=== PATIENT | female | born 1960 | race Caucasian/White ===

== ENCOUNTER → 2016-11-09 | Outpatient (CLI) | payer OTHER ==
[~2016-11-09] MED LIST: ALPR1TAB3 PO; AMPI500C9 PO; BROM0.07; BYS10 PO; CHOL100010 PO; DIFL0.0519; ERYOPO OPB; ERYT1OIN55 OPB; FLUO20CA36 PO; FLUO40CA8 PO; GATI1SOL2; PRLSR20 PO; RST/30 PO; TPM/50 PO; [UNRECOGNIZED DRUG - CODE] PO
--- NOTE | 2016-11-09 14:09 | MAMMOGRAPHY REPORT ---
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 TECHNIQUE: Breast tomosynthesis in addition to standard 2D mammography was performed. Current study was also evaluated with a Computer Aided Detection (CAD) system. Bilateral CC and MLO 2-D and jahaira synthesis images were obtained. COMPARISON: Comparison is made to exams dated: 07/07/2015 mammogram, 11/10/2011 mammogram, 06/19/2014 m ammogram - [facility], and 01/08/2010 mammogram. BREAST COMPOSITION: The tissue of both breasts is almost entirely fatty. FINDINGS: [place] markers mildred the site of the palpable lumps in bilateral lower inner quadrants. No suspicious masses or other suspicious mammographic abnormalities are evident in these regions. T he remainder of both breasts are stable compared to prior exams, without suspicious masses, calcific ations, or areas of architectural distortion noted. Small benign appearing mass in the right upper outer quadrant posteriorly is stable. A linear scar marker denotes a scar on the right breast. Targeted ultrasound was performed of the areas of the palpable lump pointed out by the patient, in t he right breast at 3:00, approximately 7 cm from the nipple, as well as left breast at 8:00, approxi mately 7 cm from the nipple. Sonographically normal tissue is seen in these regions, without eviden ce of a mass or other suspicious sonographic abnormality. IMPRESSION: ACR BI-RADS CATEGORY 2: BENIGN, TARGETED ULTRASOUND ACR BI-RADS CATEGORY 2: BENIGN No suspicious mammographic or sonographic abnormality at the site of bilateral breast lumps. There is no mammographic or targeted sonographic evidence of malignancy. Recommend clinical follow-up for bilateral breast lumps, and recommend routine bilateral screening mammograms in one year. The ryan ent has been verbally notified of the results. Approximately 10% of breast cancers are not detected with mammography. A negative mammographic repor t should not delay biopsy if a clinically suggestive mass is present. Sherice Berry M.D. ah/:11/09/2016 10:31:22 Funeral Planning Counselor: Peyton BILLINGSLEY(R)(M), [facility] letter sent: Normal 1/2 BI-RADS Code: ACR BI-RADS Category 2: Benign Ultrasound BI-RADS: ACR BI-RADS Category 2: Benign
== END | disposition home or self-care (01) ==
LOC: C.MAMM 09:31
PROVIDERS: ATTEND Internal Medicine
DX: N63 Unspecified lump in breast (principal)

== ENCOUNTER → 2017-06-27 | Day surgery (SDC) | payer OTHER ==
[2017-05-30 11:00] VITALS: Ht 154.9 cm; Wt 79.5 kg
[~2017-06-27] VITALS: Ht 154.9 cm; Wt 79.5 kg
[~2017-06-27] MED LIST changes: +500ML BSS 0.3ML EPI 1:1000PF IRRIG ONE; +ACETAMINOPHEN 325 MG TAB PO PRN; -AMPI500C9 PO; +AMVISC PLUS 0.8ML SYRINGE INT OCU ONE; +ATROPINE SULFATE 0.1 MG/ML 5ML SYR IV PRN; +BSS FLUSH ONE; -BYS10 PO; +EpHEDrine SULFATE INJ 50 MG/ML AMP IV PRN; +EpINEphrine INJ 1MG/ML AMP 1 MG/ML AMP ONE; +LACTATED RINGER'S 1000ML 500 ML IV SCH; +LIDOCAINE 3.5% OPH GEL PER APPLICATION CHARGE ONE; +LIDOCAINE HCL 1% MPF 2 ML VIAL ONE; +MIDAZOLAM HCL 1 MG/ML 2ML VIAL ONE; +OCUCOAT 1 ML SOLN IO ONE; +POVIDONE-IODINE OP SOLN 30 ML BTL ONE; +PROPARACAINE 0.5% OP SOLN PER DROP CHARGE OPL SCH; +TOBRAMYCIN/DEXAMETHASONE OPH OINT PER APPLN CHARGE ONE
[2017-06-27] MEDS: PHENYLEPHRINE HCL 2.5% OP SOLN PER DROP CHARGE OPL SCH ×2 (08:27→08:33)
[2017-06-27] MEDS: TROPICAMIDE 1% OP SOLN PER DROP CHARGE OPL SCH ×2 (08:28→08:34)
[2017-06-27] MEDS: CYCLOPENTOLATE HCL 1% OP SOLN PER DROP CHARGE OPL SCH ×2 (08:29→08:35)
[2017-06-27] MEDS: KETOROLAC 0.5% OP SOLN PER DROP CHARGE OPL SCH ×2 (08:30→08:36)
[2017-06-27] MEDS: GATIFLOXACIN OP SOLN PER DROP CHARGE OPL SCH ×2 (08:32→08:41)
--- NOTE | 2017-06-27 08:43 | History & Physical Bridge - SC ---
H&P Re-Evaluation Bridge Note: I have examined the patient, reviewed the History & Physical and in the interval since the performance of the History & Physical I have noted the following changes of clinical significance: Diagnosis: Left Cataract Procedure: Left Cataract Removal with Lens Implant No changes noted
--- NOTE | 2017-06-27 09:31 | Discharge Instructions-SurgCtr ---
Discharge Instructions Date of Service Jun 27, 2017. Visit Reason for Visit: Cataract Left Eye Discharge Discharge Diagnosis / Problem: cataract Discharge Goals Goal(s): Improve function Activity Recommendations Activity Limitations: per Instructions/Follow-up section Anesthesia . Post Anesthesia Instructions: If you have had General Anesthesia or IV Sedation: * Do not drive today. * Resume driving when surgeon permits. * Do not make important decisions or sign legal documents today. * Call surgeon for: 1. Temperature elevations greater than 101 degrees F. 2. Uncontrollable pain. 3. Excessive bleeding. 4. Persistent nausea and vomiting. 5. Medication intolerance (nausea, vomiting or rash). * For nausea and vomiting use only clear liquids such as: tea, soda, bouillon until nausea subsides, then gradually increase diet as tolerated. * If you have any concerns or questions, call your surgeon's office. If physician is unavailable and it is an emergency, call 911 or go to the nearest emergency room. . Instructions / Follow-Up Instructions / Follow-Up ACTIVITY RECOMMENDATIONS: * No strenuous lifting, jogging or running for 4 days * No swimming or yard work for 1 week. * Limited bending is permitted, such as putting on shoes. RETURN TO SCHOOL/WORK: No work until seen by physician in office. MEDICATIONS: Resume previous medications unless instructed otherwise by your surgeon. This includes eye drops for glaucoma. Zymaxid/Gatifloxacin (fuller cap) - one drop every 2 hours until bedtime Nevanac/Ilevro/Prolensa/Ketorolac (meade cap) - one drop every 4 hours until bedtime Prednisolone/Durezol (white/pink cap, SHAKE WELL) - one drop every 2 hours until bedtime Starting tomorrow - all 3 drops every 4 hours until seen in the office Optive drops - as needed for discomfort SPECIAL CARE INSTRUCTIONS: * Wear eyeshield when sleeping, for four nights. * You may wear your own glasses or sunglasses while awake. * You may read or watch TV * You may shower and wash your face, but be gentle around the eye and pat dry. * Blurry vision and mild irritation are normal. * Call office if pain is more severe or vision becomes dark at . FOLLOW UP VISIT: Follow-up with Dr Dela Cruz tomorrow. Diet Recommendations Home Diet: resume previous diet Procedures Procedures Performed: Left Cataract Phacoemulsification With Intraocular Lens Implant Pending Studies Studies pending at discharge: no Medical Emergencies . Who to Call and When: Medical Emergencies: If at any time you feel your situation is an emergency, please call 911 immediately. . Non-Emergent Contact Non-Emergency issues call your: Manuscripts [employer]ator . . "Provider Documentation" section prepared by Adal Dela Cruz. .
--- NOTE | 2017-06-27 09:31 | [facility] Operative Report ---
Operative Report Date of Service Jun 27, 2017. Operative Report 1. PREOPERATIVE DIAGNOSIS: Cataract of the left eye. 2. POSTOPERATIVE DIAGNOSIS: Same. 3. PROCEDURE: Phacoemulsification with intraocular lens implantation of the left eye. SURGEON: Dr. Adal Dela Cruz. ANESTHESIA: Topical Lidocaine gel, 1% Non- Preserved intracameral Lidocaine, and monitored intravenous sedation. INDICATIONS FOR THE PROCEDURE: The patient is a 57 - year-old female with a history of cataract of the left eye causing significant visual impairment. The details of the proposed procedure were explained to the patient who asked appropriate questions and following discussion of all risks, benefits and alternatives agreed to have the procedure done. 4. OPERATION AND FINDINGS: DESCRIPTION OF PROCEDURE: After informed consent was obtained, the patient was brought to the Operating Room at the [facility]. The patient was placed in a supine position and then the left eye was prepped and draped in the usual sterile fashion for intraocular surgery. A drop of topical Lidocaine gel was placed in the operative eye. A wire lid speculum was then placed in the fornices. A corneal paracentesis was then created temporally. The Non-Preserved Lidocaine was then instilled into the anterior chamber. The anterior chamber was then pressurized with viscoelastic. A 2.0 mm clear corneal incision was then created temporally. A cystotome was inserted into the anterior chamber and used to create a tear in the anterior lens capsule. This capsular tear was then used to create a small flap and the flap was dragged in a counterclockwise direction in order to create a continuous curvilinear capsulorrhexis. Hydrodissection was accomplished with balanced salt solution. Phacoemulsification of the lens nucleus was then performed in a standard [id number]-sye-[id number] technique. The phaco time was 19 seconds with an average power of 8 %. The remaining cortical material was removed using irrigation aspiration. The capsular bag was then filled with viscoelastic. A Bausch [employer] Lomb MI60L +25.5 diopters lens was then loaded into the injector and injected into the capsular bag. The remaining viscoelastic was removed with the irrigation aspiration handpiece. The wound was hydrated and then checked and found to be watertight. The intraocular pressure was checked and found to be adequate. The wire lid speculum was removed and the patient's face was cleaned and dried. TobraDex ointment was placed in the inferior fornix. The patient was discharged to the Recovery Room having tolerated the procedure well. There were no complications. The patient will be seen tomorrow in the office for follow-up. I attest to the content of the Intraoperative Record and any orders documented therein. Any exceptions are noted below.
[2017-06-27 09:32] VITALS: TEMP 36.6
--- NOTE | 2017-06-27 09:54 | Anesthesia Progress Nt - [facility] ---
Anesthesia Post Op Note Date & Time Jun 27, 2017 at 09:53 Vital Signs Pain Intensity: 0 Vital Signs Past 12 Hours Date Time Temp Pulse Resp B/P (MAP) Pulse Ox O2 Delivery O2 Flow Rate FiO2 06/27/17 09:32 36.6 58 20 150/76 (100) 97 Room Air 06/27/17 08:17 36.7 60 18 164/87 (112) 96 Room Air Notes Mental Status: alert / awake / arousable, participated in evaluation Pt Amnestic to Procedure: Yes Nausea / Vomiting: adequately controlled Pain: adequately controlled Airway Patency, RR, SpO2: stable & adequate BP & HR: stable & adequate Hydration State: stable & adequate Anesthetic Complications: no major complications apparent
[2017-06-27 10:06] VITALS: BP 158/82; PULSE 60; O2SAT 97
== END | disposition home or self-care (01) ==
LOC: X.SURG 07:56
PROVIDERS: ATTEND Ophthalmology
DX: H26.9 Unspecified cataract (principal); I10 Essential (primary) hypertension; H91.90 Unspecified hearing loss, unspecified ear; Z79.899 Other long term (current) drug therapy

== ENCOUNTER → 2017-07-18 | Day surgery (SDC) | payer OTHER ==
[2017-07-10 09:42] VITALS: Ht 154.9 cm; Wt 79.5 kg
[~2017-07-18] VITALS: Ht 154.9 cm; Wt 79.5 kg
[~2017-07-18] MED LIST changes: -BROM0.07; -DIFL0.0519; -ERYT1OIN55 OPB; -GATI1SOL2; +PHENYLEPHRINE HCL 10% OP SOLN PER DROP CHARGE OPR SCH; -PROPARACAINE 0.5% OP SOLN PER DROP CHARGE OPL SCH; +PROPARACAINE 0.5% OP SOLN PER DROP CHARGE OPR SCH; +SODIUM CHLORIDE 0.9% 500ML IV SCH
[2017-07-18] MEDS: PHENYLEPHRINE HCL 2.5% OP SOLN PER DROP CHARGE OPR SCH ×2 (06:32→06:38)
[2017-07-18] MEDS: TROPICAMIDE 1% OP SOLN PER DROP CHARGE OPR SCH ×2 (06:33→06:39)
[2017-07-18] MEDS: CYCLOPENTOLATE HCL 1% OP SOLN PER DROP CHARGE OPR SCH ×2 (06:34→06:40)
[2017-07-18] MEDS: KETOROLAC 0.5% OP SOLN PER DROP CHARGE OPR SCH ×2 (06:35→06:41)
[2017-07-18] MEDS: GATIFLOXACIN OP SOLN PER DROP CHARGE OPR SCH ×2 (06:36→06:44)
--- NOTE | 2017-07-18 06:53 | History & Physical Bridge - SC ---
H&P Re-Evaluation Bridge Note: I have examined the patient, reviewed the History & Physical and in the interval since the performance of the History & Physical I have noted the following changes of clinical significance: No changes noted
--- NOTE | 2017-07-18 07:20 | Discharge Instructions-SurgCtr ---
Discharge Instructions Date of Service Jul 18, 2017. Visit Reason for Visit: Cataract Right Eye Discharge Discharge Diagnosis / Problem: cataract Discharge Goals Goal(s): Improve function Activity Recommendations Activity Limitations: per Instructions/Follow-up section Anesthesia . Post Anesthesia Instructions: If you have had General Anesthesia or IV Sedation: * Do not drive today. * Resume driving when surgeon permits. * Do not make important decisions or sign legal documents today. * Call surgeon for: 1. Temperature elevations greater than 101 degrees F. 2. Uncontrollable pain. 3. Excessive bleeding. 4. Persistent nausea and vomiting. 5. Medication intolerance (nausea, vomiting or rash). * For nausea and vomiting use only clear liquids such as: tea, soda, bouillon until nausea subsides, then gradually increase diet as tolerated. * If you have any concerns or questions, call your surgeon's office. If physician is unavailable and it is an emergency, call 911 or go to the nearest emergency room. . Diet Recommendations Home Diet: resume previous diet Procedures Procedures Performed: Right Cataract Phacoemulsification With Intraocular Lens Implant Pending Studies Studies pending at discharge: no Medical Emergencies . Who to Call and When: Medical Emergencies: If at any time you feel your situation is an emergency, please call 911 immediately. . Non-Emergent Contact Non-Emergency issues call your: [facility] . . "Provider Documentation" section prepared by Adal Dela Cruz. .
--- NOTE | 2017-07-18 07:22 | [facility] Operative Report ---
Operative Report Date of Service Jul 18, 2017. Operative Report 1. PREOPERATIVE DIAGNOSIS: Cataract of the right eye. 2. POSTOPERATIVE DIAGNOSIS: Same. 3. PROCEDURE: Phacoemulsification with intraocular lens implantation of the right eye. SURGEON: Dr. Adal Dela Cruz. ANESTHESIA: Topical Lidocaine gel, 1% Non- Preserved intracameral Lidocaine, and monitored intravenous sedation. INDICATIONS FOR THE PROCEDURE: The patient is a 57 - year-old female with a history of cataract of the right eye causing significant visual impairment. The details of the proposed procedure were explained to the patient who asked appropriate questions and following discussion of all risks, benefits and alternatives agreed to have the procedure done. The patient had a broad area of posterior iris synechia noted preoperatively. Plans were made preoperatively to lyse these synechia. 4. OPERATION AND FINDINGS: DESCRIPTION OF PROCEDURE: After informed consent was obtained, the patient was brought to the Operating Room at the [facility]. The patient was placed in a supine position and then the right eye was prepped and draped in the usual sterile fashion for intraocular surgery. A drop of topical Lidocaine gel was placed in the operative eye. A wire lid speculum was then placed in the fornices. A corneal paracentesis was then created temporally. The Non-Preserved Lidocaine was then instilled into the anterior chamber. The anterior chamber was then pressurized with viscoelastic. The viscoelastic was used to bluntly dissect 3 clock hours of iris synechia in order to adequately visualize the anterior lens capsule. A 2.0 mm clear corneal incision was then created temporally. A cystotome was inserted into the anterior chamber and used to create a tear in the anterior lens capsule. This capsular tear was then used to create a small flap and the flap was dragged in a counterclockwise direction in order to create a continuous curvilinear capsulorrhexis. Hydrodissection was accomplished with balanced salt solution. Phacoemulsification of the lens nucleus was then performed in a standard divide- and-conquer technique. The phaco time was 25 seconds with an average power of 16 %. The remaining cortical material was removed using irrigation aspiration. The capsular bag was then filled with viscoelastic. A Bausch & Lomb MI60L + 21.5 diopters lens was then loaded into the injector and injected into the capsular bag. The remaining viscoelastic was removed with the irrigation aspiration handpiece. The wound was hydrated and then checked and found to be watertight. The intraocular pressure was checked and found to be adequate. The wire lid speculum was removed and the patient's face was cleaned and dried. TobraDex ointment was placed in the inferior fornix. The patient was discharged to the Recovery Room having tolerated the procedure well. There were no complications. The patient will be seen tomorrow in the office for follow-up. I attest to the content of the Intraoperative Record and any orders documented therein. Any exceptions are noted below.
[2017-07-18 07:23] VITALS: TEMP 36.9
--- NOTE | 2017-07-18 07:31 | Anesthesia Progress Nt - [facility] ---
Anesthesia Post Op Note Date & Time Jul 18, 2017 at 07:31 Vital Signs Pain Intensity: 0 Vital Signs Past 12 Hours Date Time Temp Pulse Resp B/P (MAP) Pulse Ox O2 Delivery O2 Flow Rate FiO2 07/18/17 07:23 36.9 58 18 146/79 (101) 100 Room Air 07/18/17 06:23 36.6 61 16 136/81 (99) 95 Room Air Notes Mental Status: alert / awake / arousable, participated in evaluation Pt Amnestic to Procedure: Yes Nausea / Vomiting: adequately controlled Pain: adequately controlled Airway Patency, RR, SpO2: stable & adequate BP & HR: stable & adequate Hydration State: stable & adequate Anesthetic Complications: no major complications apparent
[2017-07-18 07:44] VITALS: BP 143/84; PULSE 55; O2SAT 98
== END | disposition home or self-care (01) ==
LOC: X.SURG 06:04
PROVIDERS: ATTEND Ophthalmology
DX: H25.9 Unspecified age-related cataract (principal); I10 Essential (primary) hypertension

== ENCOUNTER → 2017-12-26 | Outpatient (CLI) | payer OTHER ==
[~2017-12-26] MED LIST changes: -500ML BSS 0.3ML EPI 1:1000PF IRRIG ONE; -ACETAMINOPHEN 325 MG TAB PO PRN; -AMVISC PLUS 0.8ML SYRINGE INT OCU ONE; -ATROPINE SULFATE 0.1 MG/ML 5ML SYR IV PRN; -BSS FLUSH ONE; -EpHEDrine SULFATE INJ 50 MG/ML AMP IV PRN; -EpINEphrine INJ 1MG/ML AMP 1 MG/ML AMP ONE; -LACTATED RINGER'S 1000ML 500 ML IV SCH; -LIDOCAINE 3.5% OPH GEL PER APPLICATION CHARGE ONE; -LIDOCAINE HCL 1% MPF 2 ML VIAL ONE; -MIDAZOLAM HCL 1 MG/ML 2ML VIAL ONE; -OCUCOAT 1 ML SOLN IO ONE; -PHENYLEPHRINE HCL 10% OP SOLN PER DROP CHARGE OPR SCH; -POVIDONE-IODINE OP SOLN 30 ML BTL ONE; -PROPARACAINE 0.5% OP SOLN PER DROP CHARGE OPR SCH; -SODIUM CHLORIDE 0.9% 500ML IV SCH; -TOBRAMYCIN/DEXAMETHASONE OPH OINT PER APPLN CHARGE ONE
--- NOTE | 2017-12-26 10:36 | DIAGNOSTIC IMAGING REPORT ---
ULTRASOUND KIDNEYS AND BLADDER CLINICAL HISTORY: Nephrolithiasis.. COMPARISON STUDY: Abdominal CT dated 11/30/2015. TECHNIQUE: Real-time, grayscale, and color flow sonography of the kidneys and bladder is performed. Images are reviewed in the transverse and longitudinal planes. FINDINGS: Kidneys: The kidneys are atrophic. The right kidney measures 10.7 x 5.0 x 4.9 cm and the left kidney measures 10.7 x 5.3 x 5.6 cm. There is no hydronephrosis. A shadowing calculus is seen in the right lower pole and measures at least 8 mm. A 5 mm shadowing calculus is seen in the left upper pole. There is no sonographic evidence of contour deforming renal mass lesion. No perinephric fluid is identified. Bladder: The bladder is decompressed and not well evaluated. A left ureteral jet was identified. IMPRESSION: 1. The kidneys are atrophic and without hydronephrosis. 2. Bilateral nonobstructing renal calculi are identified. 3. The bladder was decompressed and could not be evaluated. Electronically signed by: Herve Hardin M.D. 12/26/2017 10:34 AM Dictated Date/Time: 12/26/2017 10:32 AM
== END | disposition home or self-care (01) ==
LOC: C.ULTR 09:59
PROVIDERS: ATTEND Physician Assistant Medical
DX: N20.0 Calculus of kidney (principal); N26.1 Atrophy of kidney (terminal)

== ENCOUNTER → 2017-12-26 | Outpatient (CLI) | payer OTHER | END | disposition home or self-care (01) | LOC: C.MAMM 10:37 | PROVIDERS: ATTEND Physician Assistant Medical | DX: M85.89 Other specified disorders of bone density and structure, multiple sites (principal) ==

== ENCOUNTER → 2018-06-04 | Outpatient (CLI) | payer OTHER ==
--- NOTE | 2018-06-04 12:05 | DIAGNOSTIC IMAGING REPORT ---
L KNEE 1 OR 2 VIEWS ROUTINE HISTORY: 58 years-old Female LEFT KNEE PAIN acute left-sided knee pain COMPARISON: None available TECHNIQUE: 2 views of the left knee FINDINGS: There is mild medial compartment joint space narrowing. Minimal marginal spurring about the patellofemoral joint. The bones appear mildly demineralized. No acute fracture, dislocation or osteochondral defect. No large joint effusion or opaque foreign body. IMPRESSION: Mild degenerative changes without acute fracture. The above report was generated using voice recognition software. It may contain grammatical, syntax or spelling errors. Electronically signed by: Joselito Flores M.D. 06/04/2018 12:04 PM Dictated Date/Time: 06/04/2018 12:03 PM
[2018-06-04 13:16] LABS: BASO % 0.5 %; BASO ABS # 0.06 K/uL (0-0.2); EOS % 3.1 %; EOS ABS # 0.36 K/uL (0-0.5); HEMATOCRIT 43.2 % (37-47); HEMOGLOBIN 14.2 g/dL (12.0-16.0); IG# 0.05 K/uL (0.00-0.02); LYMPH % 25.3 %; LYMPH ABS # 2.98 K/uL (1.2-3.4); MEAN CELL VOLUME 95.2 fL (80-100); MEAN CORPUSCULAR HEMOGLOBIN 31.3 pg (25-34); MEAN CORPUSCULAR HGB CONC 32.9 g/dl (32-36); MEAN PLATELET VOLUME 9.8 fL (7.4-10.4); MONO % 6.7 %; MONO ABS # 0.79 K/uL (0.11-0.59); NEUT ABS # 7.52 K/uL (1.4-6.5); PLATELET COUNT 470 K/uL (130-400); RED CELL DISTRIBUTION WIDTH CV 13.9 % (11.5-14.5); RED CELL DISTRIBUTION WIDTH SD 48.5 fL (36.4-46.3); WHITE BLOOD COUNT 11.76 K/uL (4.8-10.8)
[2018-06-04 14:03] LABS: ALBUMIN 3.4 gm/dl (3.4-5.0); ALKALINE PHOSPHATASE 120 U/L (45-117); ALT/SGPT 23 U/L (12-78); AST/SGOT 12 U/L (15-37); BLOOD UREA NITROGEN 11 mg/dl (7-18); CALCIUM 8.8 mg/dl (8.5-10.1); CARBON DIOXIDE 24 mmol/L (21-32); CHOLESTEROL 189 mg/dl (0-200); GLUCOSE 95 mg/dl (70-99); LDL CHOLESTEROL CALCULATED 119 mg/dl; POTASSIUM 3.6 mmol/L (3.5-5.1); SODIUM 141 mmol/L (136-145); TOTAL PROTEIN 7.8 gm/dl (6.4-8.2)
== END | disposition home or self-care (01) ==
LOC: C.RADBC 11:08
PROVIDERS: ATTEND Physician Assistant Medical
DX: M25.562 Pain in left knee (principal); D47.3 Essential (hemorrhagic) thrombocythemia; E55.9 Vitamin D deficiency, unspecified; E78.4 Other hyperlipidemia; R80.8 Other proteinuria; I10 Essential (primary) hypertension; D72.829 Elevated white blood cell count, unspecified

== ENCOUNTER 2022-05-22 11:59 | Inpatient (IN) ==
[2022-05-22] MEDS ORDERED: SODIUM CHLORIDE 0.9% 1000ML 1,000 ML IV SCH (12:45)
--- NOTE | 2022-05-22 13:03 | XRay Report ---
XR chest 1V portable HISTORY: 62 years-old Female AMS . Acutely altered mental status COMPARISON: Acute abdominal series radiographs 11/20/2018 TECHNIQUE: AP view of the chest FINDINGS: Cardiac silhouette is enlarged. Mild right hemidiaphragmatic elevation. No pneumothorax, pleural effu tahmina or overt pulmonary edema. There are linear right midlung and right basilar densities which are n ew from prior. The bones appear grossly intact. IMPRESSION: Linear right midlung and right basilar opacities may represent atelectasis versus pneumon itis. ACT 112: Negative or not required by law. The above report was generated using voice recognition software. It may contain grammatical, syntax o r spelling errors. Electronically signed by: Alhaji Flores M.D. 05/22/2022 1:01 PM
[2022-05-22 13:26] LABS: Basophils # (auto) 0.05 K/uL (0-0.2); Basophils % (auto) 0.3 %; Eosinophils # (auto) 0.26 K/uL (0-0.50); Eosinophils % (auto) 1.5 %; Hematocrit (blood only) 42.6 % (34.1-44.9); Hemoglobin 13.5 g/dl (12.0-16.0); Immature Granulocytes # (auto) 0.13 K/uL (0.00-0.02); Immature Granulocytes % (auto) 0.7 %; Lymphocytes # (auto) 2.74 K/uL (1.2-3.4); Lymphocytes % (auto) 15.7 %; Mean Corpuscular Hemoglobin 30.8 pg (25.0-34.0); Mean Corpuscular Hgb Conc 31.7 g/dL (32.0-36.0); Mean Corpuscular Volume 97.3 fL (80.0-100.0); Mean Platelet Volume 9.1 fL (9.4-12.3); Monocytes # (auto) 1.02 K/uL (0.24-0.82); Monocytes % (auto) 5.8 %; Neutrophils # (auto) 13.27 K/uL (1.4-6.5); Platelet Count 394 K/uL (130-400); RDW Coefficient of Variation 13.2 % (11.5-14.5); Red Blood Count 4.38 M/uL (3.93-5.22); White Blood Count 17.47 K/ul (4.8-10.8)
--- NOTE | 2022-05-22 13:43 | CT Scan Report ---
CT head/brain wo con CLINICAL HISTORY: 62 years-old Female with AMS. Acutely altered mental status TECHNIQUE: Multiple axial CT images of the head were obtained without contrast. A dose lowering tech nique was utilized adhering to the principles of ALARA. CT DOSE: 537.48 mGy.cm COMPARISON: Head CT 02/01/2016 FINDINGS: No acute intracranial hemorrhage, midline shift, intracranial mass, hydrocephalus, territorial ischem ia or abnormal extra-axial collection. Involutional changes with chronic microvascular ischemic disea se. The study is mildly motion degraded. The calvarium is intact. Prior bilateral lens repair. The paranasal sinuses, mastoid air cells, and m iddle ear cavities are clear. IMPRESSION: No acute intracranial abnormality. ACT 112: Negative or not required by law. The above report was generated using voice recognition software. It may contain grammatical, syntax o r spelling errors. Electronically signed by: Alhaji Flores M.D. 05/22/2022 1:42 PM
[2022-05-22 13:48] LABS: Acetaminophen < 3 ug/ml (10-30); Salicylate < 3.0 mg/dl (3.0-30)
[2022-05-22 13:49] LABS: Albumin Globulin Ratio 1.1 (0.9-2); Albumin Level 3.9 gm/dl (3.4-5.0); BUN Creatinine Ratio 15.6 (10-20); Calcium 9.6 mg/dl (8.5-10.1); Est GFR (African American) 51.2 ml/min; Est GFR (Non-African American) 44.1 ml/min; Globulin 3.7 gm/dl (2.5-4.0); Magnesium 1.8 mg/dl (1.7-2.4); Potassium 4.7 mmol/L (3.5-5.1); Total Protein 7.6 gm/dl (6.0-8.3)
[2022-05-22 13:54] LABS: Troponin I High Sensitivity 7.5 pg/ml (0-14)
--- NOTE | 2022-05-22 14:26 | History & Physical Report ---
Date of Service May 22, 2022 Assessment & Plan (1) Benzodiazepine (tranquilizer) overdose: Plan: - Suspected with known temazepam use, EMS reported Klonopin bottle recently filled that should've had 20 pills left, only 6 remained. This is not a medication she has been prescribed as far as I can tell from prior notes, PDMP, med rec done here. - Also recently given Caplyta to try (unknown who prescribed this), suspect patient has been taking these in excess. 8 empty pill packs found underneath patient by EMS. - Will place 1:1 sitter while patient becomes more alert and we can assess whether this was intentional vs accidental OD. - HOB 30 degres at all times. - Continue IVF. Patient is NPO. (2) Polypharmacy: Plan: - Patient's current prescriptions for depression/bipolar/insomnia includes Prozac 40 mg daily as needed, temazepam 30 mg at night. - She apparently has Klonopin at home, however unknown who is prescribing this. Also was given trials for Caplyta. - Need to reconcile meds and clarify what she is taking and how frequently. (3) Bipolar I disorder, single manic episode: Plan: - Unclear what her current medication therapy is. I do see that she was prescribed aripiprazole in March, however this is apparently for her insomnia? Med rec performed here states that her only psych meds include Prozac 40 mg d aily and temazepam 30 mg at night. - Apparently given a trial of Caplyta (lumateperone) by a provider this past week, with 8 pills already gone. (4) Depression: Plan: - Prescribed Prozac 40 mg daily. (5) Insomnia: Plan: - Prescribed temazepam 30 mg HS. holding all medications currently due to likely benzodiazepine overdose. (6) Hypertension: Plan: - Prescribed nebivolol 40 mg AM. Hold all medications for now, patient not alert enough to take medications. Can add on IV BP meds prn if needed. (7) Osteopenia: Plan: - Continue vit D supplementation patient alert enough to take medications.. (8) Elevated alkaline phosphatase level: Plan: - Chronically elevated without additional LFT elevation, suspect d/t osteopenia. - Continue to follow on daily labs. Plan - Admitted to PCU, monitor respiratory status. - SCDs and Lovenox for VTE PPx. - Full code. History of Present Illness Chief Complaint: benzodiazepine overdose Primary Care Provider: Gary Leblanc MD Irma Vargas is a 62-year-old female with a past medical history signif icant for hypertension, low back pain, depression/bipolar 1 disorder, and insomnia who presents today via EMS for concerns over an overdose at home. Patient is very drowsy at the time of my exam, history is collected from sister who is at bedside and ED provider. Sister states her sister is "very depressed ", it is a longstanding issue and she is not sure why she is depressed or the extent of patient's mental illness, she tells me her sister is very guarded about her personal information. Sister visits the patient frequently, and for the past month noticed that she has seemed more drowsy during the visits, but able to participate in conversation and ambulate through her home. She has been insisting she was not taking anything other than what was prescribed to her. Her sister has not seen the patient over the past 2 weeks. She went to visit her today and found her down on the ground unresponsive. EMS was called, patient was eventually able to be aroused, however she had slurred speech and pinpoint pupils and a dry mouth. She was transported here for concerns of an overdose. Per EMS report, a Klonopin bottle was found at the scene that had recently been filled, reportedly 20 tabs should have been left, however only 6 remained. They also found Caplyta, which patient had recently been given trials of just this week, however, there were ~ 8 empty pill packets. Patient awakens with shoulder rub and loud voice, when asked if she took the pills in an attempt to kill herself, she shakes her head "no ". Sister tells me that the patient has had ongoing back pain and was told that Caplyta would treat her bipolar disorder, as well as help with her back pain. She suspects patient has been taking this medication as needed multiple times a day "like Tylenol" for back pain. The patient has longstanding insomnia which has been difficult to treat, so her sister is concerned she may have been prescribed multiple medications by multiple different providers, taking all of them together which led to today's event. In ED, vital signs essentially within normal limits, she is hypertensive 161/59, but on room air, HR 66, afebrile. Labs significant for WBC 17, creatinine 1.28 (baseline 0.80.9), alk phos 115. Initial hs trop 7.5. No electrolyte abnormalities. Tox screen for salicylates, acetaminophen, EtOH negative. Head CT negative for acute process. CXR showed linear right midlung and right basilar opacities atelectasis vs pneumonitis. Allergies Allergy/AdvReac Type Severity Reaction Status Date / Time alendronate sodium AdvReac Severe SWELLING Verified 12/15/21 13:20 zolpidem [From Ambien] AdvReac Unknown caused Verified 12/15/21 13:20 change in temperment, sleep walks Home Medications Medication Instructions Recorded Confirmed Type diclofenac sodium 1 % topical gel 4 g topical QID PRN pain #200 grams 07/05/21 05/22/22 Rx omeprazole 20 mg tablet,delayed 20 mg PO DAILY PRN reflux #90 tabs 09/24/21 05/22/22 Rx release fluoxetine 40 mg capsule 40 mg PO DAILY PRN Unknown 12/15/21 05/22/22 History fluticasone propionate 50 2 spray intranasal DAILY PRN 12/15/21 05/22/22 History mcg/actuation nasal aLLERGIES spray,suspension potassium citrate 15 mEq (1,620 15 meq PO BID #180 tabs 12/15/21 05/22/22 Rx mg) tablet,extended release cholecalciferol (vitamin D3) 1,250 50,000 unit PO WEEKLY #12 caps 12/20/21 05/22/22 Rx mcg (50,000 unit) capsule nebivolol 20 mg tablet 40 mg PO QAM #60 tabs 03/15/22 05/22/22 Rx meloxicam 15 mg tablet 15 mg PO DAILY #10 tabs 04/12/22 05/22/22 Rx temazepam 30 mg capsule 30 mg PO HS Insomnia #30 caps 04/12/22 05/22/22 Rx Past Med/Surg History Medical History Anxiety hx Bipolar disorder hx 10 years -- no problems currently. Compression of thoracic vertebra Depression hx GERD (gastroesophageal reflux disease) no problems since cholecystectomy History of anesthesia reaction "I flat-lined during my first kidney stone surgery 13 years ago" in [place] with unknown reasons as to why. History of colitis Hypertension IBS (irritable bowel syndrome) COLITIS Insomnia Kidney stone Migraine Nephrolithiasis Osteopenia Osteopenia of spine Restless leg syndrome pt denies Sensorineural hearing loss (SNHL) of both ears no hearing aides Thrombocytosis Surgical History History of bilateral tubal ligation History of bladder surgery History of cataract surgery RT/LEFT History of section X 1 History of cholecystectomy open History of colonoscopy History of esophagogastroduodenoscopy (EGD) History of hysterectomy History of lithotripsy History of open reduction and internal fixation (ORIF) procedure LEFT HUMERUS History of tooth extraction Status post breast lumpectomy Family History Sister , age 82 Family history of diabetes mellitus COPD (chronic obstructive pulmonary disease) Son Bipolar disorder Unknown Rheumatic fever Liver cancer FH: deafness or hearing loss FHx: allergies Sinusitis Hypertension Father , AGE 56 Acute myocardial infarction Cardiac disorder Myocardial infarction Sister Osteoporosis Metastatic melanoma FH: deafness or hearing loss FHx: allergies Sinusitis Hypertension Metastatic melanoma to liver Mother , AGE 70 No problems noted. 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 Physical Exam Physical Exam: General: Drowsy but arousable, no apparent distress, maintaining adequate airway, breathing without discomfort or difficulty Head: Normocephalic, atraumatic ENT: Pinpoint pupils, however equal and reactive; mucous membrane is dry Chest: Clear to auscultation, on room air, no adventitious breath sounds Cardiac: Regular rate and rhythm, no murmur, no JVD, normal peripheral pulses, good capillary refill Abdominal: NABS x 4 quadrants, soft, nontender to palpation, no rebound, guarding or tenderness Extremities: Normal inspection, no peripheral edema or erythema, calfs nontender to palpation Psych: Normal mood and affect Neuro: Exam limited due to excessive drowsiness due to suspected benzodiazepine overdose, her speech is slurred, strength intact bilaterally, no motor deficits, no peripheral sensory deficits Skin: no rash or erythema Results & Data Results & Data ([facility]) Vital Signs (Past 12 Hours) Vital Signs Temp Pulse Resp BP Pulse Ox O2 Del Method O2 Flow Rate 05/22/22 12:14 89 L Room Air 0 05/22/22 12:20 36.8 C 66 20 161/59 H 94 Room Air 0 Laboratory Results Abnormal lab results 05/22/22 05/22/22 05/22/22 Range/Units 13:11 13:11 13:11 WBC 17.47 H (4.8-10.8) K/ul MCHC 31.7 L (32.0-36.0) g/dL RDW Std Deviation 47.0 H (36.4-46.3) fL MPV 9.1 L (9.4-12.3) fL Neut # (Auto) 13.27 H (1.4-6.5) K/uL [place] # (Auto) 1.02 H (0.24-0.82) K/uL Immature Gran # (Auto) 0.13 H (0.00-0.02) K/uL Creatinine 1.28 H (0.6-1.2) mg/dl Glucose 110 H (70-99(Fasting)) mg/dl Alkaline Phosphatase 115 H (34-104) U/L Salicylates < 3.0 L (3.0-30) mg/dl Acetaminophen < 3 L (10-30) ug/ml Diagnostic Findings Chest X-Ray 05/22/22 12:38 XR chest 1V portable HISTORY: 62 years-old Female AMS . Acutely altered mental status COMPARISON: Acute abdominal series radiographs 11/20/2018 TECHNIQUE: AP view of the chest FINDINGS: Cardiac silhouette is enlarged. Mild right hemidiaphragmatic elevation. No pneumothorax, pleural effusion or overt pulmonary edema. There are linear right midlung and right basilar densities which are new from prior. The bones appear grossly intact. IMPRESSION: Linear right midlung and right basilar opacities may represent atelectasis versus pneumonitis. ACT 112: Negative or not required by law. The above report was generated using voice recognition software. It may contain grammatical, syntax or spelling errors. Electronically signed by: Alhaji Flores M.D. 05/22/2022 1:[address] 05/22/22 12:38 CT head/brain wo con CLINICAL HISTORY: 62 years-old Female with AMS. Acutely altered mental status TECHNIQUE: Multiple axial CT images of the head were obtained without contrast. A dose lowering technique was utilized adhering to the principles of ALARA. CT DOSE: 537.48 mGy.cm COMPARISON: Head CT 02/01/2016 FINDINGS: No acute intracranial hemorrhage, midline shift, intracranial mass, hydro cephalus, territorial ischemia or abnormal extra-axial collection. Involutional changes with chronic microvascular ischemic disease. The study is mildly motion degraded. The calvarium is intact. Prior bilateral lens repair. The paranasal sinuses, mastoid air cells, and middle ear cavities are clear. IMPRESSION: No acute intracranial abnormality. ACT 112: Negative or not required by law. The above report was generated using voice recognition software. It may contain grammatical, syntax or spelling errors. Electronically signed by: Alhaji Flores M.D. 05/22/2022 1:42 PM ECG Additional Comments: Normal sinus rhythm Minimal voltage criteria for LVH, may be normal variant Borderline ECG When compared with ECG of 23-JAN-2019 13:02, No significant change was found. Code Status & VTE Plan Code Status Full Code. Supervising Physician Co-Signing Physician Notes Irma is a 62-year-old female with a past medical history of polypharmacy, bipolar 1, hypertension, depression, and insomnia who presents as a accidental overdose. At time of provider assessment patient is arousable but extremely drowsy, is guarding airway. Collateral was collected by PA from sister who was at bedside. Reports patient has longstanding depression, and in the previous month has seemed persistently more privacy with her medications. Was found unresponsive today, EMS was called, and she was found to have slurred speech and pinpoint pupils. Klonopin bottle was found at the scene. Based on PDMP fill patient with temazepam 20 tabs should have been left, only 6 or found. Patient had also been started on Caplyta. A pack was performed as noted above. At time of ER assessment patient was hemodynamically stable, leukocytosis to 17, normal troponin, no electrolyte abnormalities, and with a talk screen negative for salicylates/APAP/alcohol. At bedside patient is extremely somnolent, awakens to loud voice and shoulder rub before falling back asleep. Pupils remain constricted, but reactive to light. Breathing is unlabored, on 2 L, diminished but grossly clear Accidental overdose Maxipime half-life 10-15 hours, follow for washout History due to somnolence, reported as unintentional overdose in the setting of polypharmacy however will watch with one-to-one consult psychiatry, and have further evaluation as patient's mental status improves Patient also recently started on bipolar medication as below,? Initial impulsivity/suicidality. Do recommend for one-to-one until patient is more engaged and able to be reassessed She is guarding airway, will follow and elevate head of bed to 30 degrees at all times. Bipolar disorder Newly started on lumateperone/caplyta Psychiatry consulted for assistance with pharmacologic treatment of bipolar PG Care Time/CCT Total # of Minutes Spent Total Time Spent with Patient: Total time spent is greater than 50% in coordination of care (as documented) at patient's floor/unit and/or counseling patient: Coding Level of Care Code 69343 Initial Inpt Care Lvl 3 Diagnoses Benzodiazepine (tranquilizer) overdose T42.4X1A Polypharmacy Z79.899 Bipolar I disorder, single manic episode F30.9 Depression F32.9 Insomnia G47.00 Hypertension I10 Osteopenia M85.80 Elevated alkaline phosphatase level R74.8
[2022-05-22 14:44] LABS: Appearance Urine Clear (Clear); Bacteria Urine Automated Negative (Negative); Bilirubin Urine Negative (Negative); Blood Urine Negative (Negative); Color Urine Yellow; Glucose Urine UA Negative (Negative); Ketones Urine Negative (Negative); Leukocyte Esterase Urine 1+ (Negative); Nitrite Urine Negative (Negative); Protein Urine Trace (Negative); RBC Urine Automated 0-4 /hpf (0-4); Specific Gravity Urine 1.019 (1.000-1.030); Urobilinogen Urine Negative (Negative)
[2022-05-22 15:59] LABS: Amphetamines+Metham, Urine Neg (Neg); Barbiturates, Urine Neg (Neg); Benzodiazepine, Urine Pos (Neg); Cocaine, Urine Neg (Neg); MDMA (Ecstacy), Urine Neg (Neg); Methadone, Urine Neg (Neg); Opiate, Urine Neg (Neg); Phencyclidine, Urine Neg (Neg)
[2022-05-22] MEDS ORDERED: POLYETHYLENE (MIRALAX) 17 GM PACK PO PRN (17:18)
[2022-05-22] MEDS ORDERED: ONDANSETRON INJ 2 MG/ML 2 ML VIAL IV PRN (17:18)
--- NOTE | 2022-05-22 17:20 | Emergency Department Note ---
Impression & Plan Benzodiazepine (tranquilizer) overdose, Polypharmacy, Drug overdose ED Provider Note CHIEF COMPLAINT: Altered mental status, probable medication overdose HISTORY OF PRESENT ILLNESS: This 62-year-old female patient presents to the emergency department with complaints of altered mental status. Patient was found on the floor by her sister with various pills surrounding her. EMS was called and it was identified that the patient likely overdosed on temazepam and [place]. The patient is able to answer some questions but falls asleep very quickly. It seems as though she just had a prescription refilled of temazepam and was given samples of [place], in addition to her other medications including fluoxetine. The patient denies any illicit substance abuse or alcohol. She denies any head injuries. Sister states she does have chronic back pain and is very depressed. REVIEW OF SYSTEMS: Unable to obtain a full review of systems secondary to the patient's mental status. ALLERGIES: see below MEDICATIONS: see below PMH: see below SOCIAL HISTORY: see below DDx: Infection, hypoglycemia, electrolyte abnormalities, overdose, toxicologic, cardiac sources, intracerebral event, neurologic, trauma, as well as other pathologies. PHYSICAL EXAM: Vital signs reviewed. General: Sleeping 62-year-old female, in no significant distress. HEENT: No scleral icterus, PERRLA, neck supple. Atraumatic. Cardiovascular: Regular rate and rhythm, no extra sounds. Pulmonary: Clear to auscultation bilaterally, normal work of breathing. On nasal cannula oxygen Abdomen: Soft, obese, nontender, nondistended, positive bowel sounds. Musculoskeletal: Atraumatic, no peripheral edema. Neurologic: Patient somnolent but arousable, answers to loud verbal stimuli and physical stimuli. Falls asleep quickly. Skin: Warm, dry, no rash EMERGENCY DEPARTMENT COURSE/MDM: This patient was evaluated and appeared to be in no significant distress. IV access was obtained and laboratory work was drawn. The patient was placed on the coil winder strap and noted to be in a normal sinus rhythm. The patient was able to wake up and answer simple questions and denies intentional overdose however apparently she was found with multiple pill bottles and sample packs around her. Her sister arrived in the emergency department and stated she is depressed and "needs help." She denied any access to illicit substances or narcotics. She does state that the patient has history of chronic back pain and takes extra medicines to sleep more often throughout the day. Laboratory work reveals no significant abnormalities. The patient CT of the head was performed and is negative for acute intracranial pathology. Patient's case was discussed with the hospitalist service who will evaluate the patient for admission and further management. MONITORING: An order for cardiac monitoring was placed and the patient is noted to be in a NSR at 66 beats per minute. RADIOLOGY: see below EKG: Normal sinus rhythm at 67 bpm. Voltage criteria for LVH, QTC is 433, no PVC, no PAC. Normal ST segments. No significant change from previous dated January 23, 2019. DISPOSITION: Admission Past Med/Surg History Medical History Anxiety hx Bipolar disorder hx 10 years -- no problems currently. Compression of thoracic vertebra Depression hx GERD (gastroesophageal reflux disease) no problems since cholecystectomy History of anesthesia reaction "I flat-lined during my first kidney stone surgery 13 years ago" in [place] with unknown reasons as to why. History of colitis Hypertension IBS (irritable bowel syndrome) COLITIS Insomnia Kidney stone Migraine Nephrolithiasis Osteopenia Osteopenia of spine Restless leg syndrome pt denies Sensorineural hearing loss (SNHL) of both ears no hearing aides Thrombocytosis Surgical History History of bilateral tubal ligation History of bladder surgery History of cataract surgery RT/LEFT History of section X 1 History of cholecystectomy open History of colonoscopy History of esophagogastroduodenoscopy (EGD) History of hysterectomy History of lithotripsy History of open reduction and internal fixation (ORIF) procedure LEFT HUMERUS History of tooth extraction Status post breast lumpectomy Family History Sister , age 82 Family history of diabetes mellitus COPD (chronic obstructive pulmonary disease) Son Bipolar disorder Unknown Rheumatic fever Liver cancer FH: deafness or hearing loss FHx: allergies Sinusitis Hypertension Father , AGE 56 Acute myocardial infarction Cardiac disorder Myocardial infarction Sister Osteoporosis Metastatic melanoma FH: deafness or hearing loss FHx: allergies Sinusitis Hypertension Metastatic melanoma to liver Mother , AGE 70 No problems noted. 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 Beliefs That Will Affect Care: None marital status: Current Living Situation: Alone current occupational status: disabled Feels Safe at Home: Declines to Answer Childhood Exposure to Second-Hand Smoke: Yes caffeine: Yes Dental Care, Regularly: No Physical Activity Frequency: 1-2 Times per Week Seatbelt Use: always Sunscreen Use: No Assistive Devices: Denture - Upper, Denture - Lower and Glasses Allergies Allergies Allergy/AdvReac Type Severity Reaction Status Date / Time alendronate sodium AdvReac Severe SWELLING Verified 12/15/21 13:20 zolpidem [From Ambien] AdvReac Unknown caused Verified 12/15/21 13:20 change in temperment, sleep walks Home Meds Home Medications Medication Instructions Recorded Confirmed fluoxetine 40 mg capsule 40 mg PO DAILY PRN Unknown 12/15/21 05/22/22 fluticasone propionate 50 2 spray intranasal DAILY PRN 12/15/21 05/22/22 mcg/actuation nasal aLLERGIES spray,suspension Previous Rx's Medication Instructions Recorded diclofenac sodium 1 % topical gel 4 g topical QID PRN pain #200 grams 07/05/21 omeprazole 20 mg tablet,delayed 20 mg PO DAILY PRN reflux #90 tabs 09/24/21 release potassium citrate 15 mEq (1,620 15 meq PO BID #180 tabs 12/15/21 mg) tablet,extended release cholecalciferol (vitamin D3) 1,250 50,000 unit PO WEEKLY #12 caps 12/20/21 mcg (50,000 unit) capsule nebivolol 20 mg tablet 40 mg PO QAM #60 tabs 03/15/22 meloxicam 15 mg tablet 15 mg PO DAILY #10 tabs 04/12/22 temazepam 30 mg capsule 30 mg PO HS Insomnia #30 caps 04/12/22 Results & Data (ED) Vital Signs Vital Signs - 24 hr 05/22/22 14:00 05/22/22 14:24 05/22/22 14:24 Pulse Rate 65 68 Pulse Rate from SpO2 Sensor 65 68 Respiratory Rate 20 19 Blood Pressure 132/62 139/62 Blood Pressure Mean 85 87 Pulse Oximetry 100 100 05/22/22 14:30 05/22/22 14:30 05/22/22 15:00 Pulse Rate 68 Pulse Rate from SpO2 Sensor 68 Respiratory Rate 17 Blood Pressure 135/58 L 128/60 Blood Pressure Mean 83 82 Pulse Oximetry 100 05/22/22 15:00 Pulse Rate 67 Pulse Rate from SpO2 Sensor 67 Respiratory Rate 17 Blood Pressure Blood Pressure Mean Pulse Oximetry 99 Home Medications Current Medication List: was personally reviewed by me Laboratory Data Attestation: I reviewed the patient's lab results. Result diagrams: 05/23/22 06:01 05/23/22 06:01 Lab Results 05/22/22 05/22/22 05/22/22 Range/Units 12:59 13:11 13:11 WBC (4.8-10.8) K/ul RBC (3.93-5.22) M/uL Hgb (12.0-16.0) g/dl Hct (34.1-44.9) % MCV (80.0-100.0) fL MCH (25.0-34.0) pg MCHC (32.0-36.0) g/dL RDW Std Deviation (36.4-46.3) fL RDW Coeff of Philomena (11.5-14.5) % Plt Count (130-400) K/uL MPV (9.4-12.3) fL Immature Gran % (Auto) % Neut % (Auto) % Lymph % (Auto) % Aiken % (Auto) % Eos % (Auto) % Baso % (Auto) % Neut # (Auto) (1.4-6.5) K/uL Lymph # (Auto) (1.2-3.4) K/uL Aiken # (Auto) (0.24-0.82) K/uL Eos # (Auto) (0-0.50) K/uL Baso # (Auto) (0-0.2) K/uL Immature Gran # (Auto) (0.00-0.02) K/uL Sodium 141 (136-145) mmol/L Potassium 4.7 (3.5-5.1) mmol/L Chloride 103 (98-107) mmol/L Carbon Dioxide 29 (21-32) mmol/L Anion Gap 9 (3-11) BUN 20 (6-23) mg/dl Creatinine 1.28 H (0.6-1.2) mg/dl Est Cr Clr Drug Dosing 50.0 ml/min Est GFR ( Amer) 51.2 ml/min Est GFR (Non-Af Amer) 44.1 ml/min BUN/Creatinine Ratio 15.6 (10-20) Glucose 110 H (70-99(Fasting)) mg/dl Calcium 9.6 (8.5-10.1) mg/dl Magnesium 1.8 (1.7-2.4) mg/dl Total Bilirubin 1.0 (0.2-1.0) mg/dl AST 28 (13-39) U/L ALT 16 (7-52) U/L Alkaline Phosphatase 115 H (34-104) U/L Ammonia (18-72) umol/L Troponin I High Sens 7.5 (0-14) pg/ml Total Protein 7.6 (6.0-8.3) gm/dl Albumin 3.9 (3.4-5.0) gm/dl Globulin 3.7 (2.5-4.0) gm/dl Albumin/Globulin Ratio 1.1 (0.9-2) Urine Color Urine Appearance (Clear) Urine pH (4.5-7.5) Ur Specific [place] (1.000-1.030) Urine Protein (Negative) Urine Glucose (UA) (Negative) Urine Ketones (Negative) Urine Blood (Negative) Urine Nitrite (Negative) Urine Bilirubin (Negative) Urine Urobilinogen (Negative) Ur Leukocyte Esterase (Negative) Urine WBC (Auto) (0-5) /hpf Urine RBC (Auto) (0-4) /hpf U Hyaline Cast (Auto) (0-5) /lpf U Epithel Cells (Auto) (0-5) /lpf Urine Bacteria (Auto) (Negative) Salicylates < 3.0 L (3.0-30) mg/dl Urine Opiates Screen (Neg) Ur Methadone, Qual (Neg) Acetaminophen < 3 L (10-30) ug/ml Urine Barbiturates (Neg) Ur Phencyclidine (PCP) (Neg) U Amphetamin/Meth Scrn (Neg) MDMA (Ecstasy) Screen (Neg) U Benzodiazepines Scrn (Neg) Ur Cocaine Metabolite (Neg) U Marijuana (THC) Screen (Neg) Ethyl Alcohol mg/dL (<10.0) mg/dl SARS-CoV-2, RNA, NAAT NEGATIVE (NEGATIVE) 05/22/22 05/22/22 05/22/22 Range/Units 13:11 13:11 13:15 WBC 17.47 H (4.8-10.8) K/ul RBC 4.38 (3.93-5.22) M/uL Hgb 13.5 (12.0-16.0) g/dl Hct 42.6 (34.1-44.9) % MCV 97.3 (80.0-100.0) fL MCH 30.8 (25.0-34.0) pg MCHC 31.7 L (32.0-36.0) g/dL RDW Std Deviation 47.0 H (36.4-46.3) fL RDW Coeff of [place]omen[place] 13.2 (11.5-14.5) % Plt Count 394 (130-400) K/uL MPV 9.1 L (9.4-12.3) fL Immature Gran % (Auto) 0.7 % Neut % (Auto) 76.0 % Lymph % (Auto) 15.7 % [place] % (Auto) 5.8 % Eos % (Auto) 1.5 % Baso % (Auto) 0.3 % Neut # (Auto) 13.27 H (1.4-6.5) K/uL Lymph # (Auto) 2.74 (1.2-3.4) K/uL [place] # (Auto) 1.02 H (0.24-0.82) K/uL Eos # (Auto) 0.26 (0-0.50) K/uL Baso # (Auto) 0.05 (0-0.2) K/uL Immature Gran # (Auto) 0.13 H (0.00-0.02) K/uL Sodium (136-145) mmol/L Potassium (3.5-5.1) mmol/L Chloride (98-107) mmol/L Carbon Dioxide (21-32) mmol/L Anion Gap (3-11) BUN (6-23) mg/dl Creatinine (0.6-1.2) mg/dl Est Cr Clr Drug Dosing ml/min Est GFR ( Amer) ml/min Est GFR (Non-Af Amer) ml/min BUN/Creatinine Ratio (10-20) Glucose (70-99(Fasting)) mg/dl Calcium (8.5-10.1) mg/dl Magnesium (1.7-2.4) mg/dl Total Bilirubin (0.2-1.0) mg/dl AST (13-39) U/L ALT (7-52) U/L Alkaline Phosphatase (34-104) U/L Ammonia 22.0 (18-72) umol/L Troponin I High Sens (0-14) pg/ml Total Protein (6.0-8.3) gm/dl Albumin (3.4-5.0) gm/dl Globulin (2.5-4.0) gm/dl Albumin/Globulin Ratio (0.9-2) Urine Color Urine Appearance (Clear) Urine pH (4.5-7.5) Ur Specific [place] (1.000-1.030) Urine Protein (Negative) Urine Glucose (UA) (Negative) Urine Ketones (Negative) Urine Blood (Negative) Urine Nitrite (Negative) Urine Bilirubin (Negative) Urine Urobilinogen (Negative) Ur Leukocyte Esterase (Negative) Urine WBC (Auto) (0-5) /hpf Urine RBC (Auto) (0-4) /hpf U Hyaline Cast (Auto) (0-5) /lpf U Epithel Cells (Auto) (0-5) /lpf Urine Bacteria (Auto) (Negative) Salicylates (3.0-30) mg/dl Urine Opiates Screen (Neg) Ur Methadone, Qual (Neg) Acetaminophen (10-30) ug/ml Urine Barbiturates (Neg) Ur Phencyclidine (PCP) (Neg) U Amphetamin/Meth Scrn (Neg) MDMA (Ecstasy) Screen (Neg) U Benzodiazepines Scrn (Neg) Ur Cocaine Metabolite (Neg) U Marijuana (THC) Screen (Neg) Ethyl Alcohol mg/dL < 10.0 (<10.0) mg/dl SARS-CoV-2, RNA, NAAT (NEGATIVE) 05/22/22 05/22/22 Range/Units 14:20 14:20 WBC (4.8-10.8) K/ul RBC (3.93-5.22) M/uL Hgb (12.0-16.0) g/dl Hct (34.1-44.9) % MCV (80.0-100.0) fL MCH (25.0-34.0) pg MCHC (32.0-36.0) g/dL RDW Std Deviation (36.4-46.3) fL RDW Coeff of [place] (11.5-14.5) % Plt Count (130-400) K/uL MPV (9.4-12.3) fL Immature Gran % (Auto) % Neut % (Auto) % Lymph % (Auto) % [place] % (Auto) % Eos % (Auto) % Baso % (Auto) % Neut # (Auto) (1.4-6.5) K/uL Lymph # (Auto) (1.2-3.4) K/uL [place] # (Auto) (0.24-0.82) K/uL Eos # (Auto) (0-0.50) K/uL Baso # (Auto) (0-0.2) K/uL Immature Gran # (Auto) (0.00-0.02) K/uL Sodium (136-145) mmol/L Potassium (3.5-5.1) mmol/L Chloride (98-107) mmol/L Carbon Dioxide (21-32) mmol/L Anion Gap (3-11) BUN (6-23) mg/dl Creatinine (0.6-1.2) mg/dl Est Cr Clr Drug Dosing ml/min Est GFR ( Amer) ml/min Est GFR (Non-Af Amer) ml/min BUN/Creatinine Ratio (10-20) Glucose (70-99(Fasting)) mg/dl Calcium (8.5-10.1) mg/dl Magnesium (1.7-2.4) mg/dl Total Bilirubin (0.2-1.0) mg/dl AST (13-39) U/L ALT (7-52) U/L Alkaline Phosphatase (34-104) U/L Ammonia (18-72) umol/L Troponin I High Sens (0-14) pg/ml Total Protein (6.0-8.3) gm/dl Albumin (3.4-5.0) gm/dl Globulin (2.5-4.0) gm/dl Albumin/Globulin Ratio (0.9-2) Urine Color Yellow Urine Appearance Clear (Clear) Urine pH 5.0 (4.5-7.5) Ur Specific [place] 1.019 (1.000-1.030) Urine Protein Trace H (Negative) Urine Glucose (UA) Negative (Negative) Urine Ketones Negative (Negative) Urine Blood Negative (Negative) Urine Nitrite Negative (Negative) Urine Bilirubin Negative (Negative) Urine Urobilinogen Negative (Negative) Ur Leukocyte Esterase 1+ H (Negative) Urine WBC (Auto) 10-30 H (0-5) /hpf Urine RBC (Auto) 0-4 (0-4) /hpf U Hyaline Cast (Auto) 1-5 (0-5) /lpf U Epithel Cells (Auto) 10-20 H (0-5) /lpf Urine Bacteria (Auto) Negative (Negative) Salicylates (3.0-30) mg/dl Urine Opiates Screen Neg (Neg) Ur Methadone, Qual Neg (Neg) Acetaminophen (10-30) ug/ml Urine Barbiturates Neg (Neg) Ur Phencyclidine (PCP) Neg (Neg) U Amphetamin/Meth Scrn Neg (Neg) MDMA (Ecstasy) Screen Neg (Neg) U Benzodiazepines Scrn Pos H (Neg) Ur Cocaine Metabolite Neg (Neg) U Marijuana (THC) Screen Neg (Neg) Ethyl Alcohol mg/dL (<10.0) mg/dl SARS-CoV-2, RNA, NAAT (NEGATIVE) Administered Medications Enoxaparin Sodium (Enoxaparin Inj 40 Mg/0.4 Ml Syr) 40 mg SQ Q24H JOSEPH Stop: 06/21/22 20:59 Last Admin: 05/22/22 19:37 Dose: 40 mg Documented By: DPK Discontinued Medications Sodium Chloride (Nss 1000ml) 1,000 mls @ 125 mls/hr IV .Q8H JOSEPH Stop: 05/22/22 20:44 Last Infusion: 05/22/22 21:06 Dose: 0 mls/hr Documented By: Admin: 05/22/22 13:33 Dose: 125 mls/hr Documented By: [id number] Imaging Data Radiologist's Impression: Chest X-Ray 05/22/22 12:38 XR chest 1V portable HISTORY: 62 years-old Female AMS . Acutely altered mental status COMPARISON: Acute abdominal series radiographs 11/20/2018 TECHNIQUE: AP view of the chest FINDINGS: Cardiac silhouette is enlarged. Mild right hemidiaphragmatic elevation. No pneumothorax, pleural effusion or overt pulmonary edema. There are linear right midlung and right basilar densities which are new from prior. The bones appear grossly intact. IMPRESSION: Linear right midlung and right basilar opacities may represent atelectasis versus pneumonitis. ACT 112: Negative or not required by law. The above report was generated using voice recognition software. It may contain grammatical, syntax or spelling errors. Electronically signed by: Alhaji Flores M.D. 05/22/2022 1:[address] 05/22/22 12:38 CT head/brain wo con CLINICAL HISTORY: 62 years-old Female with AMS. Acutely altered mental status TECHNIQUE: Multiple axial CT images of the head were obtained without contrast. A dose lowering technique was utilized adhering to the principles of ALARA. CT DOSE: 537.48 mGy.cm COMPARISON: Head CT 02/01/2016 FINDINGS: No acute intracranial hemorrhage, midline shift, intracranial mass, hydrocephalus, territorial ischemia or abnormal extra-axial collection. Involutional changes with chronic microvascular ischemic disease. The study is mildly motion degraded. The calvarium is intact. Prior bilateral lens repair. The paranasal sinuses, mastoid air cells, and middle ear cavities are clear. IMPRESSION: No acute intracranial abnormality. ACT 112: Negative or not required by law. The above report was generated using voice recognition software. It may contain grammatical, syntax or spelling errors. Electronically signed by: Alhaji Flores M.D. 05/22/2022 1:42 PM Blood Pressure Blood Pressure Findings: Normal blood pressure Blood Pressure Disposition: did not require urgent referral Discharge Plan Visit Data Chief Complaint: Overdose (Accidental) Stated Complaint: AMS, POSSIBLE OD ED Provider: Libby Crowell Discharge Problem: Benzodiazepine (tranquilizer) overdose, Polypharmacy, Drug overdose Patient Disposition: Admitted As Inpatient Discharge Instructions Interventions: ED Discharge Assessment Last Done: 05/22/22 16:31
[2022-05-22] MEDS: ENOXAPARIN INJ 40 MG/0.4 ML SYR SQ SCH (19:37)
--- NOTE | 2022-05-23 06:19 | Electrocardiogram Report ---
Test Reason : Blood Pressure : / mmHG Vent. Rate : 067 BPM Atrial Rate : 067 BPM P-R Int : 150 ms QRS Dur : 070 ms QT Int : 410 ms P-R-T Axes : 047 006 038 degrees QTc Int : 433 ms Poor data quality, interpretation may be adversely affected Normal sinus rhythm Minimal voltage criteria for LVH, may be normal variant Borderline ECG When compared with ECG of 23-JAN-2019 13:02, No significant change was found Confirmed by Everardo Mayer ([id number]) on 05/23/2022 6:19:28 AM Referred By: REFERRED SELF Confirmed By:Everardo Mayer
[2022-05-23 06:36] LABS: Basophils # (auto) 0.04 K/uL (0-0.2); Basophils % (auto) 0.3 %; Eosinophils # (auto) 0.37 K/uL (0-0.50); Eosinophils % (auto) 2.8 %; Hematocrit (blood only) 39.1 % (34.1-44.9); Hemoglobin 12.4 g/dl (12.0-16.0); Immature Granulocytes % (auto) 0.8 %; Lymphocytes # (auto) 2.92 K/uL (1.2-3.4); Lymphocytes % (auto) 22.3 %; Mean Corpuscular Hemoglobin 30.8 pg (25.0-34.0); Mean Corpuscular Hgb Conc 31.7 g/dL (32.0-36.0); Mean Platelet Volume 9.1 fL (9.4-12.3); Monocytes # (auto) 0.82 K/uL (0.24-0.82); Monocytes % (auto) 6.3 %; Neutrophils # (auto) 8.83 K/uL (1.4-6.5); Neutrophils % (auto) 67.5 %; Platelet Count 378 K/uL (130-400); RDW Coefficient of Variation 13.2 % (11.5-14.5); RDW Standard Deviation 47.1 fL (36.4-46.3); Red Blood Count 4.03 M/uL (3.93-5.22); White Blood Count 13.08 K/ul (4.8-10.8)
[2022-05-23 06:49] LABS: Prothrombin Time 10.9 Seconds (9.0-12.0)
[2022-05-23 07:06] LABS: Albumin Level 3.5 gm/dl (3.4-5.0); BUN Creatinine Ratio 18.5 (10-20); Bilirubin,Total 1.2 mg/dl (0.2-1.0); Calcium 8.7 mg/dl (8.5-10.1); Creatinine Clr Calc Pharmacy 54.2 ml/min; Est GFR (African American) 55.9 ml/min; Est GFR (Non-African American) 48.2 ml/min; Globulin 3.5 gm/dl (2.5-4.0); Magnesium 1.8 mg/dl (1.7-2.4); Potassium 4.4 mmol/L (3.5-5.1)
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
[2022-05-23] MEDS ORDERED: LORazepam 1 MG in SYRINGE 0.5 ML IV PRN (14:55)
--- NOTE | 2022-05-23 15:00 | Hospitalist Progress Note ---
Date of Service May 23, 2022 Assessment & Plan (1) Benzodiazepine (tranquilizer) overdose: Plan: - Suspected with known temazepam use, EMS reported Klonopin bottle recently filled that should've had 20 pills left, only 6 remained. Patient reports has taken temazepam for many years, with starting new bipolar med in the last few days was not able to sleep. Took several additional doses to fall asleep, denies current or past active or passive SI, reports that she was just having trouble sleeping and did not realize taking too much could be dangerous Reports [facility] provider and other doctors have been trying to get her to taper her temazepam as outpatient Did review with psychiatry. Patient is at increased risk for benzodiazepine withdrawal/seizure. Will place on MEGHA S protocol and treat as the same for seizure medication. Recommended for observation for 2-3 days for withdrawal and gradual reinitiation of underlying benzo requirement (2) Polypharmacy: Plan: - Patient's current prescriptions for depression/bipolar/insomnia includes Prozac 40 mg daily as needed, temazepam 30 mg at night. -By report recently started on Caplyta Psychiatry following, pending med reconciliation and bipolar treatment as noted (3) Bipolar I disorder, single manic episode: Plan: Psych consulted, pending [facility] medications and refused Potential for Seroquel 100 mg nightly for both sleep and bipolar disorder, but holding all psych medications for now pending reconciliation and medication washout (4) Depression: Plan: - Prescribed Prozac 40 mg daily. (5) Insomnia: Plan: - Prescribed temazepam 30 mg HS. holding all medications currently due to likely benzodiazepine overdose. (6) Hypertension: Plan: - Prescribed nebivolol 40 mg AM. Resume this as cognitive function improved and guarding airway, diet also resumed (7) Osteopenia: Plan: - Continue vit D supplementation patient alert enough to take medications.. (8) Elevated alkaline phosphatase level: Plan: - Chronically elevated without additional LFT elevation, suspect d/t osteopenia. - Continue to follow on daily labs. Plan - Admitted to PCU, monitor respiratory status. - SCDs and Lovenox for VTE PPx. - Full code. Admission and Anticipated Discharge Date Admission Date: May 22, 2022 Subjective Seen at bedside. Somnolent, but much more alert than prior. Extremely weak. Breathing comfortably. She reports that she has been on temazepam for very long time, but since starting a new bipolar med a few days ago has not been able to sleep. She reports she takes temazepam extra doses to sleep sometimes, and had taken several extra doses in the past few days due to difficulty sleeping. She is not aware this could cause respiratory suppression or be life-threatening. She reports that she does not and has not had any current or past active or passive suicidal ideation, and took extra temazepam more just to get some sleep. Reports "I will be doing that again, I did not know could be dangerous ". Denies fever, chills, sweats, lightheadedness, dizziness, chest pain, chest pressure at time of bedside evaluation Review of Systems Review of Systems: All systems reviewed & are unremarkable except as noted in Subjective Physical Exam Physical Exam: General: Somnolent, but easily arousable. Oriented to name, year, and place. Globally appears weak and fatigued. Appears slightly anxious intermittently. Thought process linear, does not offer a lot of spontaneous conversation. Poor insight to effect of benzodiazepines on her hospitalization HEENT: Atraumatic, normocephalic. Vision and hearing grossly intact, pupils equal and reactive to light Pulm: CTAB A&P. -wheezes, -rales, -rhonchi. Symmetrical chest rise. No increase in work of breathing. No respiratory distress. Cardiac: RRR, -mrg. Radial pulses intact and symmetrical. Abdominal: Nontender, nondistended, soft. BS present. Results & Data Results & Data ([facility]) Vital Signs (Past 12 Hours) Vital Signs Temp Pulse Resp BP Pulse Ox O2 Del Method 05/23/22 12:05 36.6 C 78 18 132/68 94 Room Air 05/23/22 08:12 Room Air 05/23/22 07:26 36.8 C 77 18 129/65 97 05/23/22 03:51 36.6 C 76 18 131/70 94 Room Air PG Care Time/CCT Total # of Minutes Spent Total Time Spent with Patient: Total time spent is greater than 50% in coordination of care (as documented) at patient's floor/unit and/or counseling patient: Coding Level of Care Code 50903 Subseq Hosp Care Lvl 2 Diagnoses Benzodiazepine (tranquilizer) overdose T42.4X4A Encounter type: initial encounter Injury intent: undetermined intent Polypharmacy Z79.899 Bipolar I disorder, single manic episode F30.9 Depression F32.9 Insomnia G47.00 Hypertension I10 Osteopenia M85.80 Elevated alkaline phosphatase level R74.8 (1) Benzodiazepine (tranquilizer) overdose Encounter type: initial encounter Injury intent: undetermined intent Qualified Code(s): T42.4X4A - Poisoning by benzodiazepines, undetermined, initial encounter
[2022-05-23] MEDS: ENOXAPARIN INJ 40 MG/0.4 ML SYR SQ SCH (20:08)
[2022-05-23] MEDS: METOPROLOL TARTRATE 100 MG TAB PO SCH (20:17)
[2022-05-24 08:35] LABS: Basophils # (auto) 0.05 K/uL (0-0.2); Basophils % (auto) 0.5 %; Eosinophils # (auto) 0.38 K/uL (0-0.50); Eosinophils % (auto) 3.5 %; Hematocrit (blood only) 35.7 % (34.1-44.9); Hemoglobin 11.7 g/dl (12.0-16.0); Immature Granulocytes # (auto) 0.12 K/uL (0.00-0.02); Immature Granulocytes % (auto) 1.1 %; Lymphocytes # (auto) 3.02 K/uL (1.2-3.4); Lymphocytes % (auto) 27.9 %; Mean Corpuscular Hemoglobin 30.5 pg (25.0-34.0); Mean Corpuscular Hgb Conc 32.8 g/dL (32.0-36.0); Mean Corpuscular Volume 93.2 fL (80.0-100.0); Mean Platelet Volume 9.2 fL (9.4-12.3); Monocytes # (auto) 0.89 K/uL (0.24-0.82); Monocytes % (auto) 8.2 %; Neutrophils # (auto) 6.35 K/uL (1.4-6.5); Neutrophils % (auto) 58.8 %; Platelet Count 359 K/uL (130-400); RDW Standard Deviation 44.3 fL (36.4-46.3); Red Blood Count 3.83 M/uL (3.93-5.22); White Blood Count 10.81 K/ul (4.8-10.8)
[2022-05-24 08:58] LABS: BUN Creatinine Ratio 18.3 (10-20); Calcium 8.9 mg/dl (8.5-10.1); Creatinine Clr Calc Pharmacy 50.5 ml/min; Est GFR (African American) 52.1 ml/min; Potassium 4.1 mmol/L (3.5-5.1)
[2022-05-24] MEDS: METOPROLOL TARTRATE 100 MG TAB PO SCH ×2 (09:16→21:02)
--- NOTE | 2022-05-24 15:13 | Hospitalist Progress Note ---
Date of Service May 24, 2022 Assessment & Plan (1) Benzodiazepine (tranquilizer) overdose: Plan: - Suspected with known temazepam use, EMS reported Klonopin bottle recently filled that should've had 20 pills left, only 6 remained. Patient reports has taken temazepam for many years, with starting new bipolar med in the last few days was not able to sleep. Took several additional doses to fall asleep, denies current or past active or passive SI, reports that she was just having trouble sleeping and did not realize taking too much could be dangerous Reports [facility] provider and other doctors have been trying to get her to taper her temazepam as outpatient Did review with psychiatry. Patient is at increased risk for benzodiazepine withdrawal/seizure. Placed on AWSS protocol and treat as the same for seizure medication. Recommended for observation for until 05/25-05/26 pending clinical course days for withdrawal and seizure monitoring (2) Polypharmacy: Plan: - Patient's current prescriptions for depression/bipolar/insomnia includes Prozac 40 mg daily as needed, temazepam 30 mg at night. -By report recently started on Caplyta Psychiatry following, med reconciliation from [facility] being faxed today (3) Bipolar I disorder, single manic episode: Plan: Psych consulted, pending [facility] medications reconciliation Potential for Seroquel 100 mg nightly for both sleep and bipolar disorder, but holding all psych medications for now pending reconciliation and medication washout Unable to reach [facility] by phone , however did discuss with psych and they were able to get a hold of [facility] and her medications are being faxed reconciliation. Per patient she was previously on Topamax which did not work, amitriptyline which did not work, and temazepam for sleep as noted. 05/24 doing well, near likely cognitive baseline. Adding scheduled Seroquel tomorrow per discusison with psych. If pt doing well & alert may use an as needed dose tonight for sleep. Given that she is doing well and has not required any doses of breakthrough Ativan, will defer reinitiating benzos at this time. (4) Depression: Plan: - Prescribed Prozac 40 mg daily. (5) Insomnia: Plan: - Prescribed temazepam 30 mg HS. holding due to likely benzodiazepine overdose. (6) Hypertension: Plan: - Prescribed nebivolol 40 mg AM. - Nebivolol not on formulary, converted to MTP 100mg BID. Dose reduced as direct conversion would be 200mg BID, increase if needed (7) Osteopenia: Plan: - Continue vit D supplementation patient alert enough to take medications.. (8) Elevated alkaline phosphatase level: Plan: - Chronically elevated without additional LFT elevation, suspect d/t osteopenia. - Continue to follow on daily labs. Plan - Admitted to PCU, monitor respiratory status. - SCDs and Lovenox for VTE PPx. - Regular diet. Encouraged PO for mild cr elevation. - Full code. Admission and Anticipated Discharge Date Admission Date: May 22, 2022 Subjective Bedside. She reports she feels a little anxious, but that this feels like her normal baseline anxiety and not significantly worse than normal. Denies tremors, sweating, shakes, loss of consciousness, seizure. She is not having any chest pain, chest pressure, shortness of breath, difficulty breathing. Reports her appetite is okay. Still feels globally weak, but improving and notes she was able to walk to the bathroom today and was happy that this went well. Review of Systems Review of Systems: All systems reviewed & are unremarkable except as noted in Subjective Physical Exam Physical Exam: General: Alert and oriented. Thought process linear, goal- directed, mood "okay, just a little but at what is normal for me", affect congruent not responding to internal stimuli. Denies active or passive SI/HI HEENT: Atraumatic, normocephalic. Vision and hearing grossly intact, pupils equal and reactive to light Pulm: CTAB A&P. -wheezes, -rales, -rhonchi. Symmetrical chest rise. No increase in work of breathing. No respiratory distress. Cardiac: RRR, -mrg. Radial pulses intact and symmetrical. Abdominal: Nontender, nondistended, soft. BS present. Results & Data Results & Data ([facility]) Vital Signs (Past 12 Hours) Vital Signs Temp Pulse Pulse Resp BP Pulse Ox O2 Del Method 05/24/22 11:30 36.7 C 71 18 146/64 H 92 Room Air 05/24/22 07:45 68 05/24/22 07:27 37 C 71 18 133/71 92 Room Air PG Care Time/CCT Total # of Minutes Spent Total Time Spent with Patient: Total time spent is greater than 50% in coordination of care (as documented) at patient's floor/unit and/or counseling patient: Coding Level of Care Code 29144 Subseq Hosp Care Lvl 2 Diagnoses Benzodiazepine (tranquilizer) overdose T42.4X4A Encounter type: initial encounter Injury intent: undetermined intent Polypharmacy Z79.899 Bipolar I disorder, single manic episode F30.9 Depression F32.9 Insomnia G47.00 Hypertension I10 Osteopenia M85.80 Elevated alkaline phosphatase level R74.8 (1) Benzodiazepine (tranquilizer) overdose Encounter type: initial encounter Injury intent: undetermined intent Qualified Code(s): T42.4X4A - Poisoning by benzodiazepines, undetermined, initial encounter
[2022-05-24] MEDS ORDERED: COUGH DROP (SUGAR FREE) LOZ 24 LOZ/1 BOX BUCCAL PRN ×2 (15:24→15:37)
[2022-05-24] MEDS ORDERED: QUEtiapine FUMARATE 100 MG TABLET PO PRN (16:29)
--- NOTE | 2022-05-24 16:35 | Communication Note ---
Date of Service: May 24, [address] Khan and reviewed records from [facility]. Irma is much clearer cognitively today per his assessment and she has not required any ativan per AWSS. Based on record review was on Capltya, fluoxetine 20mg and Temazepam. Will add seroquel prn qhs for insomnia tonight and if she finds this helpful it could be used for mood stabilization going forward with possible lamictal in outpatient setting for additional mood stabilization and to reduce need for higher doses of seroquel given history of binge eating. Outpatient could also add metformin to help reduce antipsychotic-induced weight gain if seroquel is helpful and higher doses are needed for mood stabilization. Will continue to hold prior to admission fluoxetine given no current mood stabilizer and reported stable mood.
[2022-05-24] MEDS: ENOXAPARIN INJ 40 MG/0.4 ML SYR SQ SCH (21:03)
[2022-05-24 21:11] LABS: 7-Aminoclonaz, Confirm NEGATIVE ng/mL (<25); Hydro-Alp Ur, GC/MS NEGATIVE ng/mL (<25); Hydroxyethylflurazepam, Conf NEGATIVE ng/mL (<50); Hydroxymidazolam Ur, GC/MS NEGATIVE ng/mL (<50); Hydroxytriazolam NEGATIVE ng/mL (<50); Lorazepam, Ur GC/MS NEGATIVE ng/mL (<50); Nordiazepam, Confirm NEGATIVE ng/mL (<50); Oxazepam Ur, GC/MS >2000 ng/mL (<50); Temazepam, Confirm >2000 ng/mL (<50)
[2022-05-25] MEDS: METOPROLOL TARTRATE 100 MG TAB PO SCH (08:36)
--- NOTE | 2022-05-25 10:05 | Hospitalist Progress Note ---
Date of Service May 25, 2022 Assessment & Plan (1) Benzodiazepine (tranquilizer) overdose: Plan: - Suspected with known temazepam use, EMS reported Klonopin bottle recently filled that should've had 20 pills left, only 6 remained. Patient reports has taken temazepam for many years, with starting new bipolar med in the last few days was not able to sleep. Took several additional doses to fall asleep, denies current or past active or passive SI, reports that she was just having trouble sleeping and did not realize taking too much could be dangerous Reports [facility] provider and other doctors have been trying to get her to taper her temazepam as outpatient Did review with psychiatry. Patient is at increased risk for benzodiazepine withdrawal/seizure. Placed on AWSS protocol (2) Polypharmacy: Plan: - Patient's current prescriptions for depression/bipolar/insomnia includes Prozac 40 mg daily as needed, temazepam 30 mg at night. -By report recently started on Caplyta Psychiatry following, med reconciliation from [facility] , psychiatry recommends not restarting prozac at this time and trial of hs seroquel (3) Bipolar I disorder, single manic episode: Plan: Psych consulted, pending [facility] medications reconciliation Seroquel nightly for both sleep and bipolar disorder, Per patient she was previously on Topamax which did not work, amitriptyline which did not work, and temazepam for sleep as noted. 8/9 doing well, near likely cognitive baseline. (4) Depression: Plan: -hold Prescribed Prozac 40 mg daily. (5) Insomnia: Plan: - Prescribed temazepam 30 mg HS. holding due to likely benzodiazepine overdose. (6) Hypertension: Plan: - Prescribed nebivolol 40 mg AM. - Nebivolol not on formulary, converted to MTP 100mg BID. Dose reduced as direct conversion would be 200mg BID, increase if needed (7) Osteopenia: Plan: - Continue vit D supplementation patient alert enough to take medications.. (8) Elevated alkaline phosphatase level: Plan: - Chronically elevated without additional LFT elevation, suspect d/t osteopenia. - Continue to follow on daily labs. Plan - SCDs and Lovenox for VTE PPx. - Regular diet. Encouraged PO for mild cr elevation. - Full code. Admission and Anticipated Discharge Date Admission Date: May 22, 2022 Review of Systems Review of Systems: Mild distress and fatigue no headache, no visual changes no speech or swallowing issues no chest pain, pressure or palpitations no shortness of breath, cough or wheezes no abdominal pain, nausea or vomiting, diarrhea or constipation no dysuria, hematuria or frequency no focal joint pain or swelling no back pain, CVA tenderness or radicular pain no bruising, bleeding or rashes no focal signs of weakness or numbness or altered sensation no complaints of anxiety or depression.. Physical Exam Physical Exam: The patient appeared well nourished and normally developed. Vital signs as documented. Head exam is normocephalic atraumatic Neck is without JVD, thyromegaly, or carotid bruits. Lungs are clear to auscultation, no focal loss of breath sounds Cardiac exam, Rhythm is regular.. No murmurs, rubs or gallops. Abdominal exam reveals normal bowel sounds, soft non tender, no masses Extremities are nonedematous and both pedal pulses are present Neurologic exam is alert and oriented, no focal loss of strength or sensation Skin is without bruises or rashes Psychologically is without concerns for anxiety or depression.. Results & Data Results & Data ([facility]) Vital Signs (Past 12 Hours) Vital Signs Temp Pulse Pulse Resp BP Pulse Ox O2 Del Method 05/25/22 08:03 64 05/25/22 07:44 98.1 F 67 16 122/69 94 Room Air 05/25/22 03:02 98.4 F 65 18 113/71 95 Room Air 05/24/22 23:00 76 PG Care Time/CCT Total # of Minutes Spent Total Time Spent with Patient: Total time spent is greater than 50% in coordination of care (as documented) at patient's floor/unit and/or counseling patient: Coding Diagnoses Benzodiazepine (tranquilizer) overdose T42.4X4A Encounter type: initial encounter Injury intent: undetermined intent Polypharmacy Z79.899 Bipolar I disorder, single manic episode F30.9 Depression F32.9 Insomnia G47.00 Hypertension I10 Osteopenia M85.80 Elevated alkaline phosphatase level R74.8 (1) Benzodiazepine (tranquilizer) overdose Encounter type: initial encounter Injury intent: undetermined intent Qualified Code(s): T42.4X4A - Poisoning by benzodiazepines, undetermined, initial encounter
--- NOTE | 2022-05-25 13:02 | Psychiatric Progress Note ---
Date of Service May 25, 2022 Impression / Recommendations Impression 62 yo woman with history of BPAD admitted medically after accidental overdose causing delirium-like state from overuse of temazepam. Diagnostically consistent with resolving delirium, anxiety and chronic insomnia, no evidence for acute bri nor depression. From a medical standpoint appears quite frail with difficultly moving around so suspect lack of physical activity is contributing to insomnia. Switch to Caplyta seems to have worsened insomnia and she began taking additional temazepam to sleep but became more delirious over the last 4 days as she took more and more temazepam. Acute risk of self-harm is low as she convincingly and consistently denies SI, denies that she took excess medications with intent of self-harm, is future-oriented and notes many reasons for living and desire to continue living. 05/25/22: Significant improvement after monitoring withdrawal from temazepam. Cognition has significantly improved I suspect some of her recent falls and confusion regarding her medication may have been due to to the temazepam and it almost benzo induced delirium. She agrees to avoid any future use of temazepam and found the Seroquel helpful for sleep. Discussed risks, benefits and alternatives. Patient would like to start and consented to scheduled Seroquel for mood stabilization for bipolar disorder as well as insomnia. Reviewed side effects including but not limited to: movement (TD, NMS), cardiac (QTc prolongation), and metabolic (stroke, insulin resistance) and necessity for fasting lipid and glucose labwork and AIMS done with score of 0. Also reviewed option for use of low-dose metformin ER off label use to reduce antipsychotic associated weight gain particularly as she has a history of binge eating disorder. She requested to start this. Reviewed side effects risks and bene fits. (1) Accidental overdose: (2) Insomnia: (3) Bipolar I disorder, single manic episode: Plan -Increase to seroquel 150mg qhs -Start metformin ER 500mg qdinner -Will need fasting lipid panel either inpatient or outpatient setting, via outpatient psych provider, to monitor metabolic side effects with seroquel -For outpatient setting: consider possible lamictal in outpatient setting for additional mood stabilization and to reduce need for higher doses of seroquel given history of binge eating. Outpatient can monitor metformin to help reduce antipsychotic-induced weight gain if seroquel is helpful and higher doses are needed for mood stabilization. Will continue to hold prior to admission fluoxetine given only low dose seroquel as mood stabilizer for now and reported stable mood. -Psych liason to fax my note to [facility] provider Risk Factors Assessment Do You Have Access To A Gun?: No Interval History Identifying Information 62 yo woman with history of BPAD, chronic insomnia admitted medically after accidental polypharmacy overdose. Psychiatry consulted for recommendations. Chief Complaint "I feel so much better, I'm doing great". Subjective Subjective Patient was seen & assessed and interval progress reviewed. She states she feels much better since being off the temazepam and notes "I did not realize how much taking extra medications could negatively impact you". She did try the as needed Seroquel last night and found that it helped a little bit with sleep but that it still took her about an hour and a half to fall asleep and had some awakenings overnight. Per review of nursing notes she was noted to be asleep throughout most of the night so these awakenings appear to have been brief and then she was able to fall back asleep. She is interested in increasing the dose of Seroquel. We also reviewed the option for medication such as metformin which can help reduce the associated risk of antipsychotic weight gain particularly given her history of binge eating disorder which she is interested in starting right away. Confirmed that she has outpatient psychiatric follow-up and that she can also discuss both these medications with her provider. She expressed appreciation for the care she received and excitement about returning home. Reviewed that if she remains in the hospital I will order fasting lipid panel and hemoglobin A1c for tomorrow morning as a baseline for her outpatient psychiatric provider to have if she continues on Seroquel. Physical Exam Psychiatric Orientation: alert and oriented x 3 Apperance: appropriately dressed and appropriately groomed Eye Contact: good eye contact Motor Behavior: no abnormal motor movements Speech: normal rate/rhythm/volume of speech Affect: euthymic affect Mood: no depressed mood and no anxious mood Thought Process: linear/logical thought process Thought Content: reality based without delusions Suicidal Thoughts: denies suicidal thoughts Homicidal Thoughts: denies homicidal thoughts Hallucinations: no auditory hallucinations and no visual hallucinations Cognition: recent memory grossly intact, remote memory grossly intact, attention grossly intact and language grossly intact Estimated Intelligence: consistent with education level Insight: good insight Judgement: + fair judgement Vital Signs (Past 24 Hours) Last Vital Signs Temp 36.8 C 05/25/22 11:53 Pulse 61 05/25/22 11:53 Resp 16 05/25/22 11:53 BP 117/70 05/25/22 11:53 Pulse Ox 96 05/25/22 11:53 O2 Del Method 05/25/22 11:53 O2 Flow Rate 2 05/22/22 23:08 Results & Data ([facility]) Laboratory Results Laboratory Results - last 24 hr 05/22/22 14:20 U OH-Alprazolam Confrm NEGATIVE 7-Amino Clonazepam NEGATIVE Ur Nordiazepam Confirm NEGATIVE U OH-ethylflurazepam NEGATIVE U Lorazepam Cnf GC/MS NEGATIVE U Oxazepam Confm GC/MS >2000 H Ur Temazepam Confirm >2000 H U OH-Triazolam Confirm NEGATIVE U OH-Midazolam Confirm NEGATIVE Drug Screen Comment SEE NOTE Current Inpatient Medications Current Inpatient Medications: Current Inpatient Medications Enoxaparin Sodium (Enoxaparin Inj 40 Mg/0.4 Ml Syr) 40 mg SQ Q24H JOSEPH Stop: 06/21/22 20:59 Last Admin: 05/24/22 21:03 Dose: 40 mg Lorazepam 1 mg/ Syringe 1 mls @ 2 mls/min IV ONE PRN; Protocol PRN Reason: EtoH Withdrawal AWSS 6,7,8,9,10 Stop: 06/22/22 14:54 Menthol (Cough Drop (Sugar Free) Rahcelle 24 Rachelle/1 Box) 1 rachelle BUCCAL Q4 PRN PRN Reason: Sore Throat Stop: 06/23/22 15:36 Metoprolol Tartrate (Metoprolol Tartrate 100 Mg Tab) 100 mg PO BID JOSEPH Stop: 06/22/22 18:59 Last Admin: 05/25/22 08:36 Dose: 100 mg Ondansetron HCl (Ondansetron Inj 2 Mg/Ml 2 Ml Vial) 4 mg IV Q6H PRN PRN Reason: Nausea Stop: 06/21/22 17:17 Polyethylene Glycol (Polyethylene (Miralax) 17 Gm Pack) 17 gm PO DAILY PRN PRN Reason: Constipation Stop: 06/21/22 17:17 Quetiapine Fumarate (Quetiapine Fumarate 100 Mg Tablet) 100 mg PO HS PRN PRN Reason: Insomnia Stop: 06/23/22 20:59 Last Admin: 05/24/22 21:02 Dose: 100 mg
[2022-05-25] MEDS ORDERED: QUEtiapine FUMARATE 25 MG TABLET PO PRN (13:07)
--- NOTE | 2022-05-25 19:39 | Discharge Summary ---
Date of Service May 25, 2022 Admission HPI Per Admitting Provider Irma Vargas is a 62-year-old female with a past medical history significant for hypertension, low back pain, depression/bipolar 1 disorder, and insomnia who presents today via EMS for concerns over an overdose at home. Patient is very drowsy at the time of my exam, history is collected from sister who is at bedside and ED provider. Sister states her sister is "very depressed ", it is a longstanding issue and she is not sure why she is depressed or the extent of patient's mental illness, she tells me her sister is very guarded about her personal information. Sister visits the patient frequently, and for the past month noticed that she has seemed more drowsy during the visits, but able to participate in conversation and ambulate through her home. She has been insisting she was not taking anything other than what was prescribed to her. Her sister has not seen the patient over the past 2 weeks. She went to visit her today and found her down on the ground unresponsive. EMS was called, patient was eventually able to be aroused, however she had slurred speech and pinpoint pupils and a dry mouth. She was transported here for concerns of an overdose. Per EMS report, a Klonopin bottle was found at the scene that had recently been filled, reportedly 20 tabs should have been left, however only 6 remained. They also found Caplyta, which patient had recently been given trials of just this week, however, there were ~ 8 empty pill packets. Patient awakens with shoulder rub and loud voice, when asked if she took the pills in an attempt to kill herself, she shakes her head "no ". Sister tells me that the patient has had ongoing back pain and was told that Caplyta would treat her bipolar disorder, as well as help with her back pain. She suspects patient has been taking this medication as needed multiple times a day "like Tylenol" for back pain. The patient has longstanding insomnia which has been difficult to treat, so her sister is concerned she may have been prescribed multiple medications by multiple different providers, taking all of them together which led to today's event. In ED, vital signs essentially within normal limits, she is hypertensive 161/59, but on room air, HR 66, afebrile. Labs significant for WBC 17, creatinine 1.28 (baseline 0.80.9), alk phos 115. Initial hs trop 7.5. No electrolyte abnormalities. Tox screen for salicylates, acetaminophen, EtOH negative. Head CT negative for acute process. CXR showed linear right midlung and right basilar opacities atelectasis vs pneumonitis. Principal Diagnosis benzodiazepine overdose, unintentional depression insomnia Discharge Exam The patient appeared stable Vital signs as documented. Lungs are clear to auscultation and appear unlabored Cardiac exam, Rhythm is regular.. No murmurs, rubs or gallops. Abdominal exam reveals normal bowel sounds, soft non tender, no masses Extremities are nonedematous and both pedal pulses are normal. Neurologic exam is alert and oriented, no focal loss of strength or sensation Skin is without bruises or rashes Psychologically is with concerns for depression. Discharge Data Allergies Allergy/AdvReac Type Severity Reaction Status Date / Time alendronate sodium AdvReac Severe SWELLING Verified 12/15/21 13:20 zolpidem [From Ambien] AdvReac Unknown caused Verified 12/15/21 13:20 change in temperment, sleep walks Consultations 05/22/22 17:18 Consult Psychiatry Routine Ordered Studies 05/22/22 12:38 CT head/brain wo con Stat Hospital Course (1) Benzodiazepine (tranquilizer) overdose: - Suspected with known temazepam use, EMS reported Klonopin bottle recently filled that should've had 20 pills left, only 6 remained. Patient reports has taken temazepam for many years, with starting new bipolar med in the last few days was not able to sleep. Took several additional doses to fall asleep, denies current or past active or passive SI, reports that she was just having trouble sleeping and did not realize taking too much could be dangerous Reports [facility] provider and other doctors have been trying to get her to taper her temazepam as outpatient Did review with psychiatry. Patient is stable for discharge will have on seroquel and metformin, no benzodiazepines or other SSRI, follow up with [facility] (2) Polypharmacy: - Patient's current prescriptions for depression/bipolar/insomnia includes Prozac 40 mg daily as needed, temazepam 30 mg at night. -By report recently started on Caplyta Psychiatry following, med reconciliation from [place] , psychiatry recommends not restarting prozac at this time and trial of hs seroquel (3) Bipolar I disorder, single manic episode: Psych consulted, pending [place] medications reconciliation Seroquel nightly for both sleep and bipolar disorder, Per patient she was previously on Topamax which did not work, amitriptyline which did not work, and temazepam for sleep as noted. 8/10 pt feels is at cognitive baseline but still bothered by insomnia. (4) Depression: -discontinue Prozac 40 mg daily. (5) Insomnia: -hs seroquel (6) Hypertension: - Prescribed nebivolol 40 mg AM. - (7) Osteopenia: - Continue vit D supplementation patient alert enough to take medications.. (8) Elevated alkaline phosphatase level: - Chronically elevated without additional LFT elevation, suspect d/t osteopenia. - Continue to follow on daily labs. Plan - Full code. Total Time Total Time Spent Total Time Spent (In Minutes): It required greater than 30 minutes to prepare this patient for discharge Discharge Plan Discharge Items Patient Disposition: Home - Self-Care Reason For Visit: ACCIDENTAL BENZODIAZEPINE OVERDOSE Discharge Diagnosis: accidental overdose insomnia Activity: Resume your previous activity Non-emergency contact: Primary Care Provider Call non-emergency contact if: you have any medication questions Follow-up/Referrals: Gary Leblanc MD [Primary Care Provider] - 05/30/22 11:00 am Diet: Carb Consistent or DM2 Addtl Attending Provider Instructions: given your new medications it is important that you watch the calories you take in Please follow up with your primary care doctor in one week Pending Studies at Discharge: Yes Stand-Alone Forms: My [facility] [place], Smoking Cessation Medications and DC Order Prescriptions: New quetiapine 100 mg tablet 150 mg PO DAILY Qty: 60 5RF metformin 500 mg Tablet Extended Release 24 Hr 500 mg PO PM Qty: 30 1RF Continued diclofenac sodium 1 % gel 4 g topical QID PRN (Reason: pain) Qty: 200 1RF omeprazole 20 mg tablet,delayed release (DR/EC) 20 mg PO DAILY PRN (Reason: reflux) Qty: 90 0RF Rx Instructions: can take up to 2 tablets(40mg) a day as needed cholecalciferol (vitamin D3) 1,250 mcg (50,000 unit) capsule 50,000 unit PO WEEKLY Qty: 12 0RF Rx Instructions: when finished, return to 2000 IU daily. nebivolol 20 mg tablet 40 mg PO QAM Qty: 60 0RF Discontinued meloxicam 15 mg tablet 15 mg PO DAILY Qty: 10 1RF temazepam 30 mg capsule 30 mg PO HS Qty: 30 0RF fluticasone propionate 50 mcg/actuation spray,suspension 2 spray intranasal DAILY PRN (Reason: aLLERGIES) Dose Instruction: USE 2 SPRAYS IN EACH NOSTRIL ONCE DAILY Rx Instructions: USE 2 SPRAYS IN EACH NOSTRIL ONCE DAILY PRN; fluoxetine 40 mg capsule 40 mg PO DAILY PRN (Reason: Unknown) Dose Instruction: TAKE 1 CAPSULE BY MOUTH DAILY Rx Instructions: TAKE 1 CAPSULE BY MOUTH DAILY PRN; potassium citrate 15 mEq tablet extended release 15 meq PO BID Qty: 180 3RF Discharge Orders: Discharge Order (Routine); Ordered 05/25/22 Ordered By: Tristin Toscano Admission Data Admit Date/Time: 05/22/22 15:07 Attending Provider: Tristin oTscano Admit Provider: Gary Khan Primary Care Provider: Gary Leblanc Other Providers: Smita Kelly ; Maria Esther Rowley ; Jocelyn Valerio Other Interventions: Discharge Summary Assessment (RN) Last Done: 05/25/22 16:34 Coding Level of Care Code D/C DAY MANAGEMENT >30 MINS Diagnoses Benzodiazepine (tranquilizer) overdose T42.4X4A Encounter type: initial encounter Injury intent: undetermined intent Polypharmacy Z79.899 Bipolar I disorder, single manic episode F30.9 Depression F32.9 Insomnia G47.00 Hypertension I10 Osteopenia M85.80 Elevated alkaline phosphatase level R74.8
[2022-05-25] MEDS ORDERED: metFORMIN HCL ER 500 MG TABCR PO SCH (21:00)
== END 2022-05-25 17:01 | disposition home or self-care (01) | DRG 918 ==
LOC: ED 11:59 → 2S 15:07 → SUATTDRO 15:07 → 2S 16:31 → 2W 05-23 17:45
DX: F31.10 Bipolar disorder, current episode manic without psychotic features, unspecified; R74.8 Abnormal levels of other serum enzymes; M85.80 Other specified disorders of bone density and structure, unspecified site; K21.9 Gastro-esophageal reflux disease without esophagitis; Y92.009 Unspecified place in unspecified non-institutional (private) residence as the place of occurrence of the external cause; Z88.8 Allergy status to other drugs, medicaments and biological substances; I10 Essential (primary) hypertension; G47.00 Insomnia, unspecified; T42.4X1A Poisoning by benzodiazepines, accidental (unintentional), initial encounter; R41.82 Altered mental status, unspecified; Z83.3 Family history of diabetes mellitus

== ENCOUNTER 2022-06-12 06:00 | Inpatient (IN) ==
--- NOTE | 2022-06-12 06:37 | Emergency Department Note ---
Impression & Plan Sepsis, Pyelonephritis, Left ureteral calculus, Renal colic on left side ED Provider Note NAME: EDWARDO MCCALL AGE: 62 SEX: F : 1960 ARRIVES VIA: Walk-In INFORMANT: Patient, ED PROVIDER(S): Rickey Jordan MD Chief Complaint: Fever, back pain, nausea vomiting diarrhea HPI: Patient states that she has had roughly 2 days of symptoms did have EMS present out to see her yesterday but was feeling improved but seem to worsen overnight. The patient states that she has had some left-sided lower back pain without any heavy lifting twisting turning or trauma. No numbness or tingling or focal weakness. The patient denies any dysuria or hematuria. The patient has had associated nausea vomiting and diarrhea. Patient believes that she has had 4 episodes of vomiting and 4 episodes of loose stools but no blood in the stool or vomit. Patient denies any chest pains or shortness of breath. No cough. The patient did have a temperature of 103 prior to arrival per EMS. The patient did take Tylenol about 4 hours prior to arrival. Patient did take some Tylenol at home which again was mildly improving with regard to her symptoms of fever as well as her back pain. Patient does have remote history of kidney stones but states that this discomfort in her lower back seems to be worse. It is achy. ROS: See HPI for pertinent positives and negatives. A total of 10 systems were reviewed and otherwise negative. Past medical history: See below Surgical history: See below Social history: See below Physical Exam: GENERAL: NAD, wearing a mask, non-toxic. EYE EXAM: Normal conjunctiva. PERRL, no anisocoria and EOM's grossly intact w/o pain. NECK: Supple, no nuchal rigidity, no adenopathy, non-tender. No signs of meningismus. FROM of the neck with good chin to chest and neck extension. No stridor. LUNGS: Clear to auscultation. Normal chest wall mechanics. HEART: NSR, no MRG. ABDOMEN: Abdomen soft, non-tender, normo-active bowel sounds, no masses, no rebound or guarding. BACK: Left-sided lower lumbar paraspinal discomfort without overlying skin changes, no pain at the midline, no right-sided pain. No CVA TTP. SKIN: No rashes and no bruising. UPPER EXTREMITIES: Upper extremities are grossly normal. LOWER EXTREMITIES: Grossly normal, no edema. NEURO EXAM: A&O x3, cranial nerves II-XII grossly intact, normal speech, moves all 4 extremities. Differential diagnoses: Viral syndrome, otitis, pharyngitis, pneumonia, influenza, meningitis, urinary tract infection, sepsis, bacteremia, as well as other pathologies. Course: Patient was seen and evaluated the bedside. Full history physical exam was performed. EKG interpreted by me Normal sinus rhythm, rate of 87, normal intervals, normal axis, no ST elevations. No significant change from comparison May 22, 2022. Imaging Studies: See Below Cardiac monitoring: An order was placed for continuous cardiac monitoring. The monitor shows a rate of 82 with sinus rhythm. MDM: Patient presented due to concern for back pain nausea vomiting diarrhea. Blood work is obtained along with chest x-ray CAT scan of the abdomen and pelvis. The patient did receive IV fluids antiemetics and Toradol for fever. Per my review the patient's last creatinine On May 24 was 1.2. The patient blood work shows a white count of 23 with a normal H&H and platelet count. The patient's kidney function is slightly worse from comparison with a c reatinine of 1.7. Lactate of 3.1. Magnesium 1.5. Patient was ordered additional 1 L of IV fluids in addition to Zosyn as the patient was complaining of back and abdominal pain in the setting of nausea vomiting and diarrhea with a white count of 23 and associated fever. Patient was also ordered magnesium for replacement. Past Med/Surg History Medical History Anxiety hx Bipolar disorder hx 10 years -- no problems currently. Compression of thoracic vertebra Depression hx GERD (gastroesophageal reflux disease) no problems since cholecystectomy History of anesthesia reaction "I flat-lined during my first kidney stone surgery 13 years ago" in [place] with unknown reasons as to why. History of colitis Hypertension IBS (irritable bowel syndrome) COLITIS Insomnia Kidney stone Migraine Nephrolithiasis Osteopenia Osteopenia of spine Restless leg syndrome pt denies Sensorineural hearing loss (SNHL) of both ears no hearing aides Thrombocytosis Surgical History History of bilateral tubal ligation History of bladder surgery History of cataract surgery RT/LEFT History of section X 1 History of cholecystectomy open History of colonoscopy History of esophagogastroduodenoscopy (EGD) History of hysterectomy History of lithotripsy History of open reduction and internal fixation (ORIF) procedure LEFT HUMERUS History of tooth extraction Status post breast lumpectomy Family History Sister , age 82 Family history of diabetes mellitus COPD (chronic obstructive pulmonary disease) Son Bipolar disorder Unknown Rheumatic fever Liver cancer FH: deafness or hearing loss FHx: allergies Sinusitis Hypertension Father , AGE 56 Acute myocardial infarction Cardiac disorder Myocardial infarction Sister Osteoporosis Metastatic melanoma FH: deafness or hearing loss FHx: allergies Sinusitis Hypertension Metastatic melanoma to liver Mother , AGE 70 No problems noted. Social History Smoking Status: Never smoker Second Hand Exposure: No; Hx Alcohol Use: No Hx Substance Use: No Preferred Language: [place] Communication Ability: Effective Visual Impairment: Limited Hearing Ability: Hard of Hearing Home Care Associate Required: No Beliefs That Will Affect Care: None marital status: Current Living Situation: Alone current occupational status: disabled How many Children do You have: 1 Feels Safe at Home: Yes Childhood Exposure to Second-Hand Smoke: Yes caffeine: Yes Dental Care, Regularly: No Physical Activity Frequency: 1-2 Times per Week Seatbelt Use: always Sunscreen Use: No Assistive Devices: None Allergies Allergies Allergy/AdvReac Type Severity Reaction Status Date / Time alendronate sodium AdvReac Severe SWELLING Verified 12/15/21 13:20 zolpidem [From Ambien] AdvReac Unknown caused Verified 12/15/21 13:20 change in temperment, sleep walks Home Meds Previous Rx's Medication Instructions Recorded diclofenac sodium 1 % topical gel 4 g topical QID PRN pain #200 grams 07/05/21 omeprazole 20 mg tablet,delayed 20 mg PO DAILY PRN reflux #90 tabs 09/24/21 release cholecalciferol (vitamin D3) 1,250 50,000 unit PO WEEKLY #12 caps 12/20/21 mcg (50,000 unit) capsule nebivolol 20 mg tablet 40 mg PO QAM #60 tabs 03/15/22 metformin 500 mg tablet,extended 500 mg PO PM #30 tabs 05/25/22 release 24 hr quetiapine 100 mg tablet 150 mg PO DAILY #60 tabs 05/25/22 Results & Data (ED) Vital Signs Vital Signs - 24 hr 06/12/22 06:04 06/12/22 06:33 06/12/22 06:33 Temperature 37.1 C Temperature Source Temporal Artery Scan Pulse Rate 88 Pulse Rate [Apical] Pulse Rate [Finger] Respiratory Rate 20 Respiratory Effort / Characteristics Non-Labored Spontaneous Respiratory Depth Normal Blood Pressure 161/65 H Blood Pressure [Left Arm] Blood Pressure Mean 97 Blood Pressure Mean [Left Arm] Blood Pressure Position [Left Arm] Pulse Oximetry 98 97 Oxygen Delivery Method Room Air Room Air Room Air Oxygen Flow Rate Sepsis New/Unexplained Change in Mental Status N/A Sepsis Action Taken by Nursing No Action Required 06/12/22 06:37 06/12/22 08:01 06/12/22 09:43 Temperature 38.4 C H Temperature Source Oral Pulse Rate Pulse Rate [Apical] Pulse Rate [Finger] 79 Respiratory Rate 18 20 Respiratory Effort / Characteristics Non-Labored Spontaneous Respiratory Depth Normal Blood Pressure Blood Pressure [Left Arm] 130/66 128/92 Blood Pressure Mean Blood Pressure Mean [Left Arm] 87 104 Blood Pressure Position [Left Arm] Lying Pulse Oximetry 96 97 Oxygen Delivery Method Room Air Room Air Oxygen Flow Rate Sepsis New/Unexplained Change in Mental Status Sepsis Action Taken by Nursing 06/12/22 10:32 06/12/22 10:40 06/12/22 10:50 Temperature 36.1 C L Temperature Source Temporal Artery Scan Pulse Rate Pulse Rate [Apical] 78 79 81 Pulse Rate [Finger] Respiratory Rate 16 16 16 Respiratory Effort / Characteristics Non-Labored Spontaneous Non-Labored Spontaneous Non-Labored Spontaneous Respiratory Depth Normal Normal Normal Blood Pressure Blood Pressure [Left Arm] 129/79 142/72 H 140/72 Blood Pressure Mean Blood Pressure Mean [Left Arm] 95 95 94 Blood Pressure Position [Left Arm] Semi-fowlers Semi-fowlers Semi-fowlers Pulse Oximetry 94 94 95 Oxygen Delivery Method Oxymask Room Air Room Air Oxygen Flow Rate 5 Sepsis New/Unexplained Change in Mental Status Sepsis Action Taken by [facility] Medications Current Medication List: was personally reviewed by me Laboratory Data Attestation: I reviewed the patient's lab results. Result diagrams: 06/12/22 06:28 08/28/22 06:28 Lab Results 06/12/22 06/12/22 06/12/22 Range/Units 06:28 06:28 06:28 WBC 23.22 H (4.8-10.8) K/ul RBC 4.08 (3.93-5.22) M/uL Hgb 12.4 (12.0-16.0) g/dl Hct 39.4 (34.1-44.9) % MCV 96.6 (80.0-100.0) fL MCH 30.4 (25.0-34.0) pg MCHC 31.5 L (32.0-36.0) g/dL RDW Std Deviation 48.2 H (36.4-46.3) fL RDW Coeff of Philomena 13.5 (11.5-14.5) % Plt Count 358 (130-400) K/uL MPV 9.3 L (9.4-12.3) fL Immature Gran % (Auto) 0.6 % Neut % (Auto) 86.7 % Lymph % (Auto) 4.3 % [place] % (Auto) 7.4 % Eos % (Auto) 0.6 % Baso % (Auto) 0.4 % Neut # (Auto) 20.13 H (1.4-6.5) K/uL Lymph # (Auto) 1.00 L (1.2-3.4) K/uL [place] # (Auto) 1.71 H (0.24-0.82) K/uL Eos # (Auto) 0.14 (0-0.50) K/uL Baso # (Auto) 0.09 (0-0.2) K/uL Immature Gran # (Auto) 0.15 H (0.00-0.02) K/uL Sodium 135 L (136-145) mmol/L Potassium 4.6 (3.5-5.1) mmol/L Chloride 100 (98-107) mmol/L Carbon Dioxide 25 (21-32) mmol/L Anion Gap 10 (3-11) BUN 26 H (6-23) mg/dl Creatinine 1.74 H (0.6-1.2) mg/dl Est Cr Clr Drug Dosing 33.5 ml/min Est GFR ( Amer) 35.3 ml/min Est GFR (Non-Af Amer) 30.5 ml/min BUN/Creatinine Ratio 14.9 (10-20) Glucose 194 H (70-99(Fasting)) mg/dl Lactate 3.1 H* (0.4-2.0) mmol/L Calcium 9.4 (8.5-10.1) mg/dl Magnesium 1.5 L (1.7-2.4) mg/dl Total Bilirubin 1.4 H (0.2-1.0) mg/dl AST 14 (13-39) U/L ALT 12 (7-52) U/L Alkaline Phosphatase 90 (34-104) U/L Total Creatine Kinase 35 (26-192) U/L Troponin I High Sens 10.2 (0-14) pg/ml Total Protein 7.6 (6.0-8.3) gm/dl Albumin 4.0 (3.4-5.0) gm/dl Globulin 3.6 (2.5-4.0) gm/dl Albumin/Globulin Ratio 1.1 (0.9-2) TSH (0.300-4.500) uIu/ml SARS-CoV-2, RNA, NAAT (NEGATIVE) 06/12/22 06/12/22 06/12/22 Range/Units 06:28 06:29 08:31 WBC (4.8-10.8) K/ul RBC (3.93-5.22) M/uL Hgb (12.0-16.0) g/dl Hct (34.1-44.9) % MCV (80.0-100.0) fL MCH (25.0-34.0) pg MCHC (32.0-36.0) g/dL RDW Std Deviation (36.4-46.3) fL RDW Coeff of Philomena (11.5-14.5) % Plt Count (130-400) K/uL MPV (9.4-12.3) fL Immature Gran % (Auto) % Neut % (Auto) % Lymph % (Auto) % [place] % (Auto) % Eos % (Auto) % Baso % (Auto) % Neut # (Auto) (1.4-6.5) K/uL Lymph # (Auto) (1.2-3.4) K/uL [place] # (Auto) (0.24-0.82) K/uL Eos # (Auto) (0-0.50) K/uL Baso # (Auto) (0-0.2) K/uL Immature Gran # (Auto) (0.00-0.02) K/uL Sodium (136-145) mmol/L Potassium (3.5-5.1) mmol/L Chloride (98-107) mmol/L Carbon Dioxide (21-32) mmol/L Anion Gap (3-11) BUN (6-23) mg/dl Creatinine (0.6-1.2) mg/dl Est Cr Clr Drug Dosing ml/min Est GFR ( Amer) ml/min Est GFR (Non-Af Amer) ml/min BUN/Creatinine Ratio (10-20) Glucose (70-99(Fasting)) mg/dl Lactate 2.1 H* (0.4-2.0) mmol/L Calcium (8.5-10.1) mg/dl Magnesium (1.7-2.4) mg/dl Total Bilirubin (0.2-1.0) mg/dl AST (13-39) U/L ALT (7-52) U/L Alkaline Phosphatase (34-104) U/L Total Creatine Kinase (26-192) U/L Troponin I High Sens (0-14) pg/ml Total Protein (6.0-8.3) gm/dl Albumin (3.4-5.0) gm/dl Globulin (2.5-4.0) gm/dl Albumin/Globulin Ratio (0.9-2) TSH 3.141 (0.300-4.500) uIu/ml SARS-CoV-2, RNA, NAAT NEGATIVE (NEGATIVE) Administered Medications Diatrizoate Meglumine (Diatrizoate Meglumine 30% 100ml Vial) 100 ml INSTIL UD PRN PRN Reason: Radiology Use Stop: 06/16/22 09:33 Last Admin: 06/12/22 10:27 Dose: 100 ml Documented By: CTY Discontinued Medications Sodium Chloride (Nss 1000ml) 1,000 mls @ 999 mls/hr IV .Q1H1M ONE Stop: 06/12/22 07:55 Last Infusion: 06/12/22 08:05 Dose: 0 mls/hr Documented By: Admin: 06/12/22 07:19 Dose: 999 mls/hr Documented By: MARIA T Piperacillin Sod/Tazobactam Sod (Zosyn) 4.5 gm in 120 mls @ 240 mls/hr IV NOW ONE Stop: 06/12/22 08:40 Last Infusion: 06/12/22 09:33 Dose: 0 mls/hr Documented By: Admin: 06/12/22 08:38 Dose: 240 mls/hr Documented By: MARIA T Sodium Chloride (Nss 1000ml) 1,000 mls @ 999 mls/hr IV .Q1H1M ONE Stop: 06/12/22 09:11 Last Infusion: 06/12/22 09:43 Dose: 0 mls/hr Documented By: MARIA T Admin: 06/12/22 08:38 Dose: 999 mls/hr Documented By: MARIA T Magnesium Sulfate/Dextrose (Magnesium Sulfate / D5w) 1 gm in 100 mls @ 100 mls/hr IV NOW STA Stop: 06/12/22 09:12 Last Infusion: 06/12/22 09:43 Dose: 0 mls/hr Documented By: MARIA T Admin: 06/12/22 08:38 Dose: 100 mls/hr Documented By: MARIA T Ioversol (Optiray 300 500ml) 95 ml IV ONCE ONE Stop: 06/12/22 08:06 Last Admin: 06/12/22 08:05 Dose: 95 ml Documented By: HALIMA Ketorolac Tromethamine (Ketorolac Tromethamine 15 Mg/Ml Vial) 10 mg IV NOW ONE Stop: 06/12/22 06:58 Last Admin: 06/12/22 07:19 Dose: 10 mg Documented By: MARIA T Ondansetron HCl (Ondansetron Inj 2 Mg/Ml 2 Ml Vial) 4 mg IV NOW STA Stop: 06/12/22 06:56 Last Admin: 06/12/22 07:19 Dose: 4 mg Documented By: MARIA T Imaging Data Radiologist's Impression: Abdomen Fluoroscopy 06/12/22 00:00 FL KUB CLINICAL HISTORY: BILAT STENT PLACEMENT COMPARISON STUDY: CT of the abdomen and pelvis performed earlier today. FLUOROSCOPY TIME: 7.6 seconds. FLUOROSCOPIC IMAGES: 2 FINDINGS: Fluoroscopy was provided during placement of bilateral ureteral stents. Filling defects within the right renal pelvis correspond to calculi on CT. A radiodensity projects over the left kidney. IMPRESSION: Fluoroscopy provided during placement of bilateral ureteral stents. ACT 112: Negative or not required by law. Electronically signed by: Vicente Mcgee M.D. 06/12/2022 10:37 AM Chest X-Ray 06/12/22 06:11 XR chest 1V portable CLINICAL HISTORY: weakness COMPARISON STUDY: Chest radiograph May 22, 2022. FINDINGS: Lung volumes are normal. Minimal left basilar opacity favors atelectasis. There is no pneumothorax or pleural effusion. Cardiac size is normal. Mediastinal contours are normal. There is no evidence for pulmonary edema. IMPRESSION: No acute cardiopulmonary findings. ACT 112: Negative or not required by law. Electronically signed by: Vicente Mcgee M.D. 06/12/2022 6:46 AM Abdomen/Pelvis CT 06/12/22 06:55 CT OF THE ABDOMEN AND PELVIS WITH CONTRAST CLINICAL HISTORY: Left-sided sided LBP; fever, n/v/d COMPARISON STUDY: CT of the abdomen and pelvis July 08, 2020. Renal ultrasound December 27, 2021. TECHNIQUE: Following IV administration of 95 mL of Optiray, axial images of the abdomen and pelvis were obtained from the lung bases to the proximal femurs. Images were reviewed in the axial, sagittal, and coronal planes. IV contrast was administered without complication. Automated exposure control was utilized for the study. A dose lowering technique was utilized adhering to the principles of ALARA. CT DOSE: 1025.40 mGy.cm FINDINGS: A 9 mm by 5 mm proximal left ureteral calculus results in moderate left hydronephrosis with delayed nephrogram and perinephric stranding. There is no right hydronephrosis. There are several right renal pelvis calculi measure up to 1.4 cm. There is moderate right renal cortical thinning. There is mild left renal cortical thinning. 2.4 cm water adrenal nodule has slightly increased in size since CT of July 08, 2020. This favors an adenoma. No hepatic lesions are present. Spleen, left adrenal gland and pancreas are unremarkable. Is no biliary ductal dilatation status post cholecystectomy. The appendix is normal. There is no evidence for a bowel obstruction. There is no lymphadenopathy. There is no ascites. No acute fracture within the visualized skeletal structures. IMPRESSION: 1. 9 mm x 5 mm proximal left ureteral calculus which results in moderate left hydronephrosis with delayed nephrogram and perinephric stranding. 2. Multiple right renal pelvis calculi that measure up to 1.4 cm. No right hydronephrosis. 3. Moderate right and mild left renal cortical thinning. ACT 112: Negative or not required by law. Electronically signed by: Vicente Mcgee M.D. 06/12/2022 8:34 AM Discharge Plan Visit Data Chief Complaint: Weakness Stated Complaint: WEAKNESS CHECKED OUT ALREADY, NOT GETTING BETTER ED Provider: Rickey Jordan Discharge Problem: Sepsis, Pyelonephritis, Left ureteral calculus, Renal colic on left side Patient Disposition: Admitted As Inpatient Discharge Instructions Interventions: ED Discharge Assessment Last Done: 06/12/22 09:48
--- NOTE | 2022-06-12 06:48 | XRay Report ---
XR chest 1V portable CLINICAL HISTORY: weakness COMPARISON STUDY: Chest radiograph May 22, 2022. FINDINGS: Lung volumes are normal. Minimal left basilar opacity favors atelectasis. There is no pneum othorax or pleural effusion. Cardiac size is normal. Mediastinal contours are normal. There is no bobby dence for pulmonary edema. IMPRESSION: No acute cardiopulmonary findings. ACT 112: Negative or not required by law. Electronically signed by: Vicente Mcgee M.D. 06/12/2022 6:46 AM
[2022-06-12] MEDS ORDERED: SODIUM CHLORIDE 0.9% 1000ML 1,000 ML IV ONE ×2 (06:55→08:11)
[2022-06-12] MEDS ORDERED: ONDANSETRON INJ 2 MG/ML 2 ML VIAL IV STA (06:55)
[2022-06-12] MEDS ORDERED: KETOROLAC TROMETHAMINE 15 MG/ML VIAL IV ONE (06:57)
[2022-06-12 07:10] LABS: Hematocrit (blood only) 39.4 % (34.1-44.9); Hemoglobin 12.4 g/dl (12.0-16.0); Mean Corpuscular Hemoglobin 30.4 pg (25.0-34.0); Mean Corpuscular Hgb Conc 31.5 g/dL (32.0-36.0); Mean Corpuscular Volume 96.6 fL (80.0-100.0); Mean Platelet Volume 9.3 fL (9.4-12.3); Platelet Count 358 K/uL (130-400); RDW Coefficient of Variation 13.5 % (11.5-14.5); RDW Standard Deviation 48.2 fL (36.4-46.3); Red Blood Count 4.08 M/uL (3.93-5.22); White Blood Count 23.22 K/ul (4.8-10.8)
[2022-06-12 07:26] LABS: Albumin Globulin Ratio 1.1 (0.9-2); BUN Creatinine Ratio 14.9 (10-20); Bilirubin,Total 1.4 mg/dl (0.2-1.0); Calcium 9.4 mg/dl (8.5-10.1); Creatinine Clr Calc Pharmacy 33.5 ml/min; Est GFR (African American) 35.3 ml/min; Est GFR (Non-African American) 30.5 ml/min; Globulin 3.6 gm/dl (2.5-4.0); Magnesium 1.5 mg/dl (1.7-2.4); Potassium 4.6 mmol/L (3.5-5.1); Total Protein 7.6 gm/dl (6.0-8.3)
[2022-06-12 07:30] LABS: Troponin I High Sensitivity 10.2 pg/ml (0-14)
[2022-06-12 07:34] LABS: Basophils # (auto) 0.09 K/uL (0-0.2); Basophils % (auto) 0.4 %; Eosinophils # (auto) 0.14 K/uL (0-0.50); Eosinophils % (auto) 0.6 %; Immature Granulocytes # (auto) 0.15 K/uL (0.00-0.02); Immature Granulocytes % (auto) 0.6 %; Lymphocytes % (auto) 4.3 %; Monocytes # (auto) 1.71 K/uL (0.24-0.82); Monocytes % (auto) 7.4 %; Neutrophils # (auto) 20.13 K/uL (1.4-6.5); Neutrophils % (auto) 86.7 %
[2022-06-12] MEDS ORDERED: OPTIRAY 300 500mL IV ONE (08:05)
[2022-06-12] MEDS ORDERED: PIPERACILLIN/TAZOBACTAM 4.5 GM/120 ML BAG IV ONE (08:11)
[2022-06-12] MEDS ORDERED: MAGNESIUM SULFATE / D5W 1 GM/100 ML BAG IV STA (08:13)
--- NOTE | 2022-06-12 08:37 | CT Scan Report ---
CT OF THE ABDOMEN AND PELVIS WITH CONTRAST CLINICAL HISTORY: Left-sided sided LBP; fever, n/v/d COMPARISON STUDY: CT of the abdomen and pelvis July 08, 2020. Renal ultrasound December 27, 2021. TECHNIQUE: Following IV administration of 95 mL of Optiray, axial images of the abdomen and pelvis we re obtained from the lung bases to the proximal femurs. Images were reviewed in the axial, sagittal, and coronal planes. IV contrast was administered without complication. Automated exposure control wa s utilized for the study. A dose lowering technique was utilized adhering to the principles of ALARA . CT DOSE: 1025.40 mGy.cm FINDINGS: A 9 mm by 5 mm proximal left ureteral calculus results in moderate left hydronephrosis with delayed nephrogram and perinephric stranding. There is no right hydronephrosis. There are several ri ght renal pelvis calculi measure up to 1.4 cm. There is moderate right renal cortical thinning. There is mild left renal cortical thinning. 2.4 cm water adrenal nodule has slightly increased in size sin ce CT of July 08, 2020. This favors an adenoma. No hepatic lesions are present. Spleen, left adr enal gland and pancreas are unremarkable. Is no biliary ductal dilatation status post cholecystectomy . The appendix is normal. There is no evidence for a bowel obstruction. There is no lymphadenopathy. There is no ascites. No acute fracture within the visualized skeletal structures. IMPRESSION: 1. 9 mm x 5 mm proximal left ureteral calculus which results in moderate left hydronephrosis with del ayed nephrogram and perinephric stranding. 2. Multiple right renal pelvis calculi that measure up to 1.4 cm. No right hydronephrosis. 3. Moderate right and mild left renal cortical thinning. ACT 112: Negative or not required by law. Electronically signed by: Vicente Mcgee M.D. 06/12/2022 8:34 AM
[2022-06-12] MEDS ORDERED: fentaNYL citrate 100 MCG/2 ML VIAL ONE (09:12)
[2022-06-12] MEDS ORDERED: MIDAZOLAM HCL 1 MG/ML 2ML VIAL ONE (09:13)
--- NOTE | 2022-06-12 09:16 | Anesthesiology Consultation ---
Date of Service June 12, 2022 Assessment & Plan (1) Encounter for pre-operative examination: Chart Review Chart Review: Acceptable Risk for Surgery (Urgent) History Surgery Operation Date: 06/12/22 09:00 Proposed Procedures p Cystoscopy, Bilateral Ureteral Stent Insertion(Bilateral) - Kishro Amanda MD Height/Weight Height: 5 ft 1 in Weight: 90.6 kg Allergies Allergy/AdvReac Type Severity Reaction Status Date / Time alendronate sodium AdvReac Severe SWELLING Verified 12/15/21 13:20 zolpidem [From Ambien] AdvReac Unknown caused Verified 12/15/21 13:20 change in temperment, sleep walks Medications Home Medications Medication Instructions Recorded Confirmed Last Taken diclofenac sodium 1 % topical gel 4 g topical QID PRN pain #200 grams 07/05/21 05/22/22 Unknown omeprazole 20 mg tablet,delayed 20 mg PO DAILY PRN reflux #90 tabs 09/24/21 05/22/22 Unknown release cholecalciferol (vitamin D3) 1,250 50,000 unit PO WEEKLY #12 caps 12/20/21 05/22/22 Unknown mcg (50,000 unit) capsule nebivolol 20 mg tablet 40 mg PO QAM #60 tabs 03/15/22 05/22/22 Unknown metformin 500 mg tablet,extended 500 mg PO PM #30 tabs 05/25/22 Unknown release 24 hr quetiapine 100 mg tablet 150 mg PO DAILY #60 tabs 05/25/22 Unknown Past Medical History Medical History Anxiety hx Bipolar disorder hx 10 years -- no problems currently. Compression of thoracic vertebra Depression hx GERD (gastroesophageal reflux disease) no problems since cholecystectomy History of anesthesia reaction "I flat-lined during my first kidney stone surgery 13 years ago" in [place] with unknown reasons as to why. History of colitis Hypertension IBS (irritable bowel syndrome) COLITIS Insomnia Kidney stone Migraine Nephrolithiasis Osteopenia Osteopenia of spine Restless leg syndrome pt denies Sensorineural hearing loss (SNHL) of both ears no hearing aides Thrombocytosis Past Family History Family History Sister , age 82 Family history of diabetes mellitus COPD (chronic obstructive pulmonary disease) Son Bipolar disorder Unknown Rheumatic fever Liver cancer FH: deafness or hearing loss FHx: allergies Sinusitis Hypertension Father , AGE 56 Acute myocardial infarction Cardiac disorder Myocardial infarction Sister Osteoporosis Metastatic melanoma FH: deafness or hearing loss FHx: allergies Sinusitis Hypertension Metastatic melanoma to liver Mother , AGE 70 No problems noted. Past Surgical History Surgical History History of bilateral tubal ligation History of bladder surgery History of cataract surgery RT/LEFT History of section X 1 History of cholecystectomy open History of colonoscopy History of esophagogastroduodenoscopy (EGD) History of hysterectomy History of lithotripsy History of open reduction and internal fixation (ORIF) procedure LEFT HUMERUS History of tooth extraction Status post breast lumpectomy Social History Smoking Status: Never smoker Hx Alcohol Use: No Hx Substance Use: No substance use type: does not use Physical Exam Vital Signs Last Vital Signs Temp 38.4 C H 06/12/22 06:37 Pulse 88 06/12/22 06:04 Resp 18 06/12/22 08:01 BP 130/66 06/12/22 08:01 Pulse Ox 96 06/12/22 08:01 O2 Del Method 06/12/22 08:01 Testing Laboratory Results 06/12/22 06:28 06/12/22 06:28 Electrocardiogram Date: 06/12/22 Findings: + NSR @ (87) Chest X-Ray Date: 06/12/22 Findings: + NAD
--- NOTE | 2022-06-12 09:25 | Urology Consultation ---
Date of Consultation June 12, 2022 Assessment & Plan (1) Nephrolithiasis: (2) Renal insufficiency: Plan Obstructing left ureteral calculus with urosepsis; right UPJ calculus Given her current clinical situation, emergent intervention is required Plan for cystoscopy bilateral ureteral stent placement I would like to drain the right side given the position of the right UPJ calculus and the concern that she could obstruct on the right and already infected system She was receiving Zosyn at the time I evaluated herhemodynamically stable aside from being febrile right now' risks, benefits, and expectations reviewed History of Present Illness History of Present Illness Called for an emergency consultation in the ER secondary to a 62-year-old female who presented to the emergency room with evidence of sepsis and was found to have an obstructing left ureteral calculus and presumed infection She has been partially resuscitated and given Toradol which has improved her overall feeling She has a leukocytosis of 23,000, lactate of 3.1, creatinine 1.74 She is [id number]. 5, normotensive, not tachycardic Long history of kidney stonestreated in [place] in the past CT reviewed and discussedshe has an obstructing left proximal ureteral calculus which he also has a large renal calculus on the right which is resting at the UPJ andno hydronephrosis or significant stranding on the right but I think it is highly concerning that this could obstruct as well and given her current situation I think it is most prudent to address both the left and right Allergies Allergy/AdvReac Type Severity Reaction Status Date / Time alendronate sodium AdvReac Severe SWELLING Verified 12/15/21 13:20 zolpidem [From Ambien] AdvReac Unknown caused Verified 12/15/21 13:20 change in temperment, sleep walks Home Medications Medication Instructions Recorded Confirmed Type diclofenac sodium 1 % topical gel 4 g topical QID PRN pain #200 grams 07/05/21 05/22/22 Rx omeprazole 20 mg tablet,delayed 20 mg PO DAILY PRN reflux #90 tabs 09/24/21 05/22/22 Rx release cholecalciferol (vitamin D3) 1,250 50,000 unit PO WEEKLY #12 caps 12/20/21 05/22/22 Rx mcg (50,000 unit) capsule nebivolol 20 mg tablet 40 mg PO QAM #60 tabs 03/15/22 05/22/22 Rx metformin 500 mg tablet,extended 500 mg PO PM #30 tabs 05/25/22 Rx release 24 hr quetiapine 100 mg tablet 150 mg PO DAILY #60 tabs 05/25/22 Rx Patient History Medical History Anxiety hx Bipolar disorder hx 10 years -- no problems currently. Compression of thoracic vertebra Depression hx GERD (gastroesophageal reflux disease) no problems since cholecystectomy History of anesthesia reaction "I flat-lined during my first kidney stone surgery 13 years ago" in [place] with unknown reasons as to why. History of colitis Hypertension IBS (irritable bowel syndrome) COLITIS Insomnia Kidney stone Migraine Nephrolithiasis Osteopenia Osteopenia of spine Restless leg syndrome pt denies Sensorineural hearing loss (SNHL) of both ears no hearing aides Thrombocytosis Surgical History History of bilateral tubal ligation History of bladder surgery History of cataract surgery RT/LEFT History of section X 1 History of cholecystectomy open History of colonoscopy History of esophagogastroduodenoscopy (EGD) History of hysterectomy History of lithotripsy History of open reduction and internal fixation (ORIF) procedure LEFT HUMERUS History of tooth extraction Status post breast lumpectomy Family History Sister , age 82 Family history of diabetes mellitus COPD (chronic obstructive pulmonary disease) Son Bipolar disorder Unknown Rheumatic fever Liver cancer FH: deafness or hearing loss FHx: allergies Sinusitis Hypertension Father , AGE 56 Acute myocardial infarction Cardiac disorder Myocardial infarction Sister Osteoporosis Metastatic melanoma FH: deafness or hearing loss FHx: allergies Sinusitis Hypertension Metastatic melanoma to liver Mother , AGE 70 No problems noted. Social History Smoking Status: Never smoker Second Hand Exposure: No; Hx Alcohol Use: No Hx Substance Use: No Preferred Language: Yoruba Communication Ability: Effective Visual Impairment: Limited Hearing Ability: Hard of Hearing Hide Trimmer Required: No Beliefs That Will Affect Care: None marital status: Current Living Situation: Alone current occupational status: disabled How many Children do You have: 1 Feels Safe at Home: Yes Childhood Exposure to Second-Hand Smoke: Yes caffeine: Yes Dental Care, Regularly: No Physical Activity Frequency: 1-2 Times per Week Seatbelt Use: always Sunscreen Use: No Assistive Devices: None Review of Systems Constitutional: + fever, + chills and + fatigue Eyes: no worsening vision Ear, Nose, Mouth, Throat: no facial pain and no pain with swallowing Respiratory: no cough and no dyspnea Cardiovascular: no chest pain and no palpitations Gastrointestinal: + abdominal pain and + nausea; no vomiting Genitourinary: + dysuria and + urinary frequency; no difficulty urinating Musculoskeletal: no back pain Integumentary: no rash and no urticaria Neurologic: no gait abnormality and no unsteadiness Psychiatric: no behavioral changes and no depression Endocrine: no fatigue Physical Exam Constitutional: well developed and well nourished Moderately uncomfortable appearing Neck: neck nontender Respiratory: normal respiratory effort; no respiratory distress and does not use accessory muscles Cardiovascular: Rate/Rhythm: regular rate Vessels: radial pulses present Extremities: no edema Gastrointestinal (Abdomen): Inspection/Auscultation: abdomen normal to inspection Percussion/Palpation: + abdomen tender (Mild tenderness in the left flank) and abdomen soft; no guarding Musculoskeletal: Head/Neck/Chest: normocephalic and head atraumatic Extremities: extremities normal to inspection Skin: no rashes and no lesions Trauma: no evidence of skin trauma Neurologic: awake; not obtunded Speech / Cognition: normal speech Motor/Sensory: no tremor Psychiatric: Orientation: alert and oriented x 3 Lymphatic: no lymphadenopathy Results & Data ([facility]) Vital Signs (Past 12 Hours) Vital Signs Temp Pulse Resp BP BP Pulse Ox O2 Del Method 06/12/22 08:01 18 130/66 96 Room Air 06/12/22 06:37 38.4 C H 06/12/22 06:33 97 Room Air 06/12/22 06:33 Room Air 06/12/22 06:04 37.1 C 88 20 161/65 H 98 Room Air PG Care Time/CCT Total # of Minutes Spent Total Time Spent with Patient: Total time spent is greater than 50% in coordination of care (as documented) at patient's floor/unit and/or counseling patient: Coding Level of Care Code 50654 Inpt Consult Level 5 Diagnoses Nephrolithiasis N20.0 Renal insufficiency N28.9
[2022-06-12] MEDS ORDERED: DIATRIZOATE MEGLUMINE 30% 100ML VIAL INSTIL PRN (09:34)
--- NOTE | 2022-06-12 09:40 | History & Physical Report ---
Date of Service June 12, 2022 Assessment & Plan (1) Pyelonephritis: Plan: Pyelonephritis with left hydroureter from 9mm renal stone for cysto 06/12, cutures sent on Zosyn, dr Amanda has seen in ER pre op cardiovascular risk assesment is low, pt withtout sx of unstable angina or chf (2) Depression: Plan: recent admission for accidental overdsoe, on seroquel hs, will restart lower dose prozac (3) Hypertension: Plan: formulary substitute for nebivolol Plan Heparin for DVT prevention History of Present Illness Primary Care Provider: Gary Leblanc MD Patient presented with 2 days of fevers or chills and left-sided lower back pain. Patient did not have any other urinary symptoms such as dysuria hematuria or frequency. Patient became more ill over the last 24 hours with some associated nausea vomiting and loose bowel movements. Patient was most recently [place] due to medication mismanagement. She was found to have a significant hydronephrosis with 9 mm left-sided stone and a temperature of 103 F prior to arrival by EMS. He was admitted and taken urgently to the cystoscopy suite he was given Zosyn therapy and had cultures of blood and urine Allergies Allergy/AdvReac Type Severity Reaction Status Date / Time alendronate sodium AdvReac Severe SWELLING Verified 12/15/21 13:20 zolpidem [From Ambien] AdvReac Unknown caused Verified 12/15/21 13:20 change in temperment, sleep walks Home Medications Medication Instructions Recorded Confirmed Type diclofenac sodium 1 % topical gel 4 g topical QID PRN pain #200 grams 07/05/21 05/22/22 Rx omeprazole 20 mg tablet,delayed 20 mg PO DAILY PRN reflux #90 tabs 09/24/21 05/22/22 Rx release cholecalciferol (vitamin D3) 1,250 50,000 unit PO WEEKLY #12 caps 12/20/21 05/22/22 Rx mcg (50,000 unit) capsule nebivolol 20 mg tablet 40 mg PO QAM #60 tabs 03/15/22 05/22/22 Rx metformin 500 mg tablet,extended 500 mg PO PM #30 tabs 05/25/22 Rx release 24 hr quetiapine 100 mg tablet 150 mg PO DAILY #60 tabs 05/25/22 Rx Past Med/Surg History Medical History Anxiety hx Bipolar disorder hx 10 years -- no problems currently. Compression of thoracic vertebra Depression hx GERD (gastroesophageal reflux disease) no problems since cholecystectomy History of anesthesia reaction "I flat-lined during my first kidney stone surgery 13 years ago" in [place] with unknown reasons as to why. History of colitis Hypertension IBS (irritable bowel syndrome) COLITIS Insomnia Kidney stone Migraine Nephrolithiasis Osteopenia Osteopenia of spine Restless leg syndrome pt denies Sensorineural hearing loss (SNHL) of both ears no hearing aides Thrombocytosis Surgical History History of bilateral tubal ligation History of bladder surgery History of cataract surgery RT/LEFT History of section X 1 History of cholecystectomy open History of colonoscopy History of esophagogastroduodenoscopy (EGD) History of hysterectomy History of lithotripsy History of open reduction and internal fixation (ORIF) procedure LEFT HUMERUS History of tooth extraction Status post breast lumpectomy Family History Sister , age 82 Family history of diabetes mellitus COPD (chronic obstructive pulmonary disease) Son Bipolar disorder Unknown Rheumatic fever Liver cancer FH: deafness or hearing loss FHx: allergies Sinusitis Hypertension Father , AGE 56 Acute myocardial infarction Cardiac disorder Myocardial infarction Sister Osteoporosis Metastatic melanoma FH: deafness or hearing loss FHx: allergies Sinusitis Hypertension Metastatic melanoma to liver Mother , AGE 70 No problems noted. Social History Smoking Status: Never smoker Second Hand Exposure: No; Do You Dip or Chew Tobacco: No; Tobacco Cessation Education Requested by Patient: No Hx Alcohol Use: No Hx Substance Use: No Preferred Language: Citizen Of [place] Communication Ability: Effective Visual Impairment: Limited Hearing Ability: Hard of Hearing Property Disposal Manager Required: No Beliefs That Will Affect Care: None marital status: Current Living Situation: Alone Current Living Situation Comment: lives alone current occupational status: disabled How many Children do You have: 1 Other Information That Helps Us Care for You: No Feels Safe at Home: Yes Safety Concerns: Feels Safe At This Time Childhood Exposure to Second-Hand Smoke: Yes caffeine: Yes Dental Care, Regularly: No Physical Activity Frequency: 1-2 Times per Week Seatbelt Use: always Sunscreen Use: No Assistive Devices: None Review of Systems Review of Systems: Moderate distress and fatigue no headache, no visual changes no speech or swallowing issues no chest pain, pressure or palpitations no shortness of breath, cough or wheezes Left-sided abdominal pain, prehospital nausea , vomiting, diarrhea no dysuria, hematuria or frequency no focal joint pain or swelling Left-sided back pain with CVA tenderness. no radicular pain no bruising, bleeding or rashes no focal signs of weakness or numbness or altered sensation no complaints of anxiety or depression.. Physical Exam Physical Exam: The patient appeared well nourished and normally developed. He does not appear septic or toxic Vital signs as documented. Head exam is normocephalic atraumatic Neck is without JVD, thyromegaly, or carotid bruits. Lungs are clear to auscultation, no focal loss of breath sounds Cardiac exam, Rhythm is regular.. No murmurs, rubs or gallops. Abdominal exam reveals normal bowel sounds, soft minor left-sided tenderness and left-sided CVA angle tenderness Extremities are nonedematous and both pedal pulses are present Neurologic exam is alert and oriented, no focal loss of strength or sensation Skin is without bruises or rashes Psychologically is without concerns for anxiety or depression.. Results & Data Results & Data ([facility]) Vital Signs (Past 12 Hours) Vital Signs Temp Pulse Resp BP BP Pulse Ox O2 Del Method 06/12/22 08:01 18 130/66 96 Room Air 06/12/22 06:37 101.1 F H 06/12/22 06:33 97 Room Air 06/12/22 06:33 Room Air 06/12/22 06:04 98.8 F 88 20 161/65 H 98 Room Air Diagnostic Findings Chest X-Ray 06/12/22 06:11 XR chest 1V portable CLINICAL HISTORY: weakness COMPARISON STUDY: Chest radiograph May 22, 2022. FINDINGS: Lung volumes are normal. Minimal left basilar opacity favors atelectasis. There is no pneumothorax or pleural effusion. Cardiac size is normal. Mediastinal contours are normal. There is no evidence for pulmonary edema. IMPRESSION: No acute cardiopulmonary findings. ACT 112: Negative or not required by law. Electronically signed by: Vicente Mcgee M.D. 06/12/2022 6:46 AM Abdomen/Pelvis CT 06/12/22 06:55 CT OF THE ABDOMEN AND PELVIS WITH CONTRAST CLINICAL HISTORY: Left-sided sided LBP; fever, n/v/d COMPARISON STUDY: CT of the abdomen and pelvis July 08, 2020. Renal ultrasound December 27, 2021. TECHNIQUE: Following IV administration of 95 mL of Optiray, axial images of the abdomen and pelvis were obtained from the lung bases to the proximal femurs. Images were reviewed in the axial, sagittal, and coronal planes. IV contrast was administered without complication. Automated exposure control was utilized for the study. A dose lowering technique was utilized adhering to the principles of ALARA. CT DOSE: 1025.40 mGy.cm FINDINGS: A 9 mm by 5 mm proximal left ureteral calculus results in moderate left hydronephrosis with delayed nephrogram and perinephric stranding. There is no right hydronephrosis. There are several right renal pelvis calculi measure up to 1.4 cm. There is moderate right renal cortical thinning. There is mild left renal cortical thinning. 2.4 cm water adrenal nodule has slightly increased in size since CT of July 08, 2020. This favors an adenoma. No hepatic lesions are present. Spleen, left adrenal gland and pancreas are unremarkable. Is no biliary ductal dilatation status post cholecystectomy. The appendix is normal. There is no evidence for a bowel obstruction. There is no lymphadenopathy. There is no ascites. No acute fracture within the visualized skeletal structures. IMPRESSION: 1. 9 mm x 5 mm proximal left ureteral calculus which results in moderate left hydronephrosis with delayed nephrogram and perinephric stranding. 2. Multiple right renal pelvis calculi that measure up to 1.4 cm. No right hydronephrosis. 3. Moderate right and mild left renal cortical thinning. ACT 112: Negative or not required by law. Electronically signed by: Vicente Mcgee M.D. 06/12/2022 8:34 AM Code Status & VTE Plan VTE Prophylaxis Plan VTE Prophylaxis will be ordered: Yes PG Care Time/CCT Total # of Minutes Spent Total Time Spent with Patient: Total time spent is greater than 50% in coordination of care (as documented) at patient's floor/unit and/or counseling patient: Coding Level of Care Code 44733 Initial Inpt Care Lvl 3 Diagnoses Pyelonephritis N12 Depression F32.9 Hypertension I10
[2022-06-12] MEDS ORDERED: ONDANSETRON INJ 2 MG/ML 2 ML VIAL IV PRN ×2 (10:00→11:38)
[2022-06-12] MEDS ORDERED: fentaNYL citrate 100 MCG/2 ML VIAL IV PRN (10:00)
[2022-06-12] MEDS ORDERED: ATROPINE SULFATE 0.1 MG/ML 10ML SYR IV PRN (10:00)
[2022-06-12] MEDS ORDERED: ONDANSETRON INJ 2 MG/ML 2 ML VIAL ONE (10:14)
[2022-06-12] MEDS ORDERED: PROPOFOL IV EMULSION 10 MG/ML 20 ML VIAL IV ONE (10:14)
[2022-06-12] MEDS ORDERED: LIDOCAINE 2% MPF LOCAL 5 ML VIAL INFIL ONE (10:14)
--- NOTE | 2022-06-12 10:27 | Operative Report ---
PG Post Operative Report Pre & Post Diagnosis Operation Date: 06/12/22 09:00 Pre-Op Diagnosis: Nephrolithiasis, renal insufficiency. Post-Op Diagnosis: Nephrolithiasis, renal insufficiency. I identified the patient and participated in the time-out.: Yes Procedure Operation Date: 06/12/22 09:00 Actual Procedures p Cystoscopy, Bilateral Ureteral Stent Insertion(Bilateral) - Kishor Amanda MD Surgeon Kishor Amanda MD Rig Mechanic none Estimated Blood Loss 0 Findings Consistent with Post-Op Diagnosis Specimens 1. Bladder urine for culture 2. Left renal urine for culture Description of Procedure The patient was identified in the preoperative holding area, appropriate informed consents were reviewed and completed and the patient was transferred to the operative suite. Upon arrival, appropriate antibiotics and anesthesia were administered and the patient was placed in dorsal lithotomy position and prepped and draped in sterile fashion. To begin the case to pass a 22 [place]e cystoscope which revealed cloudy urine but a healthy-appearing bladder. Ureteral orifices were in orthotopic position. A urine culture was collected and passed off the table. I then intubated the left ureteral orifice with a sensor wire and a 5 Sur[place]amese open-ended catheter. The wire advanced the kidney without difficulty and advanced the catheter over the wire into the renal pelvis. I remove the wire and collected a specimen from the left kidney which was passed off the table for culture. I then reposition the wire and placed a 6 [place]amese by 24 cm double-J stent. My attention was then turned to the right UO. Of note, she appeared to have contrast retained within the right upper tract. I was able to advance a wire into the upper pole of the kidney without difficulty and then I positioned a 6 [place]amese by 24 cm double-J stent in the renal pelvis as well as seeing a good curl in the bladder. I subsequently concluded the case and she was reversed of anesthesia and taken to the recovery room in stable condition. There were no complications. I attest to the content of the Intraoperative Record and any orders documented therein. Any exceptions are noted below.
--- NOTE | 2022-06-12 10:39 | Fluoroscopy Report ---
FL KUB CLINICAL HISTORY: BILAT STENT PLACEMENT COMPARISON STUDY: CT of the abdomen and pelvis performed earlier today. FLUOROSCOPY TIME: 7.6 seconds. FLUOROSCOPIC IMAGES: 2 FINDINGS: Fluoroscopy was provided during placement of bilateral ureteral stents. Filling defects wit hin the right renal pelvis correspond to calculi on CT. A radiodensity projects over the left kidney. IMPRESSION: Fluoroscopy provided during placement of bilateral ureteral stents. ACT 112: Negative or not required by law. Electronically signed by: Vicente Mcgee M.D. 06/12/2022 10:37 AM
[2022-06-12] MEDS ORDERED: MoRPHine SULFATE 4 MG/ML 1 ML CARP\\VIAL IV PRN (11:38)
[2022-06-12] MEDS ORDERED: oxyCODONE HCL IR 5 MG TAB (IMMEDIATE RELEASE) PO PRN (11:38)
[2022-06-12] MEDS ORDERED: MoRPHine SULFATE 2 MG/ML CARP IV PRN (11:38)
[2022-06-12] MEDS ORDERED: PANTOprazole 40 MG TAB PO PRN (11:49)
[2022-06-12] MEDS: NORMOSOL-R 1,000 ML IV SCH ×2 (12:12→21:20)
[2022-06-12] MEDS: ACETAMINOPHEN 325 MG TAB PO PRN ×2 (13:11→19:28)
[2022-06-12] MEDS ORDERED: KETOROLAC TROMETHAMINE 15 MG/ML VIAL IV PRN (14:17)
[2022-06-12] MEDS: PIPERACILLIN/TAZOBACTAM 4.5 GM in DEXTROSE 5% 100 ML IV SCH ×2 (14:32→22:09)
--- NOTE | 2022-06-12 20:45 | Electrocardiogram Report ---
Test Reason : Blood Pressure : / mmHG Vent. Rate : 087 BPM Atrial Rate : 087 BPM P-R Int : 138 ms QRS Dur : 074 ms QT Int : 356 ms P-R-T Axes : 041 009 040 degrees QTc Int : 428 ms Normal sinus rhythm Normal ECG When compared with ECG of 22-MAY-2022 12:14, No significant change was found Confirmed by Travis Frederick ([id number]) on 06/12/2022 8:44:55 PM Referred By: Confirmed By:Travis Frederick
[2022-06-12] MEDS: HEPARIN SOD 5,000 UNIT/0.5 ML VIAL SQ SCH (21:08)
[2022-06-13 02:04] LABS: A calco-baum cmplx NotReported Not Detected (NotDetected); Bact fragilis Not Reported Not Detected (NotDetected); C auris Not Reported Not Detected (NotDetected); CTX-M Resistant Gene Not Detected (NotDetected); Calbicans Not Reported Not Detected (NotDetected); Candida glabrata Not Reported Not Detected (NotDetected); Candida krusei Not Reported Not Detected (NotDetected); Cneoformans/gatti Not Reported Not Detected (NotDetected); Cparapsilosis Not Reported Not Detected (NotDetected); Ctropicalis Not Reported Not Detected (NotDetected); E cloacae compx Not Reported Not Detected (NotDetected); Efaecalis Not Reported Not Detected (NotDetected); Efaecium Not Reported Not Detected (NotDetected); Enterobacterales DETECTED (NotDetected); Enterobacterales Not Reported DETECTED (NotDetected); Escherichia coli Not Reported Not Detected (NotDetected); H influenzae Not Reported Not Detected (NotDetected); IMP Resistant Gene Not Detected (NotDetected); K aerogenes Not Reported Not Detected (NotDetected); KPC Resistant Gene Not Detected (NotDetected); Koxytoca Not Reported DETECTED (NotDetected); Kpneumoniae grp Not Reported Not Detected (NotDetected); Lmonocyt Not Reported Not Detected (NotDetected); N meningitidis Not Reported Not Detected (NotDetected); NDM Resistant Gene Not Detected (NotDetected); OXA 48 Like Resistant Gene Not Detected (NotDetected); P aeruginosa Not Reported Not Detected (NotDetected); Proteus spp Not Reported Not Detected (NotDetected); Salmonella spp Not Reported Not Detected (NotDetected); Smarcescens Not Reported Not Detected (NotDetected); Staph lugdunensis Not Reported Not Detected (NotDetected); Staph spp. Not Reported Not Detected (NotDetected); Staphaureus Not Reported Not Detected (NotDetected); Staphepi Not Reported Not Detected (NotDetected); Stenmaltophilia Not Reported Not Detected (NotDetected); Strep agal(GrpB) Not Reported Not Detected (NotDetected); Strep pneum Not Reported Not Detected (NotDetected); Strep pyog (GrpA) Not Reported Not Detected (NotDetected); Strep spp Not Reported Not Detected (NotDetected); VIM Resistant Gene Not Detected (NotDetected); mcr-1 Colistin Resistant Gene Not Detected (NotDetected)
[2022-06-13] MEDS: PIPERACILLIN/TAZOBACTAM 4.5 GM in DEXTROSE 5% 100 ML IV SCH ×3 (05:47→22:17)
[2022-06-13 07:20] LABS: Hematocrit (blood only) 34.1 % (34.1-44.9); Hemoglobin 10.9 g/dl (12.0-16.0); Mean Corpuscular Hemoglobin 30.4 pg (25.0-34.0); Mean Platelet Volume 9.5 fL (9.4-12.3); Platelet Count 266 K/uL (130-400); RDW Coefficient of Variation 13.9 % (11.5-14.5); RDW Standard Deviation 48.9 fL (36.4-46.3); Red Blood Count 3.59 M/uL (3.93-5.22); White Blood Count 19.59 K/ul (4.8-10.8)
[2022-06-13 07:45] LABS: BUN Creatinine Ratio 14.5 (10-20); Creatinine Clr Calc Pharmacy 25.2 ml/min; Est GFR (African American) 25.6 ml/min; Est GFR (Non-African American) 22.1 ml/min; Magnesium 1.6 mg/dl (1.7-2.4); Potassium 4.8 mmol/L (3.5-5.1)
--- NOTE | 2022-06-13 08:29 | Hospitalist Progress Note ---
Date of Service June 13, 2022 Assessment & Plan (1) Pyelonephritis: Plan: Pyelonephritis with left hydroureter from 9mm renal stone (Hx stones, staghorn, potassium citrate as meds per prior notes). CTAP: 1. 9 mm x 5 mm proximal left ureteral calculus which results in moderate left hydronephrosis with delayed nephrogram and perinephric stranding. Multiple right renal pelvis calculi that measure up to 1.4 cm. No right hydronephrosis. Moderate right and mild left renal cortical thinning. Urology consulted POD#1 s/p Cystoscopy, Bilateral Ureteral Stent Insertion(Bilateral) - Kishor Amanda MD Continue Zosyn (started 06/08, day 2) Monitor urine cultures - gram negative bacilli Blood cultures 2/2 gram negative bacilli, repeat pending given continued high temp last evening to ensure clearance although is gram negative bacilli Rapid PCR with identification for enterobacterales, klebsiella oxytoca Highest temp 39.1C 06/12 at 19:15, 38.0/37.6C this morning--> monitor WBC 22k --> 19.5k Pain control, antiemetics --> Added pyridium prn -- 200mg x 1 now, 100mg TID prn Supportive care,electrolyte replacement as needed Will order another 2L NSS @ 100cc/hr (na 134, Chl 97, Cr up to 2.27 with normal baseline, did have some hypotension though to note) * Mag 1.6 --> 2gm IV ordered Will also check Vit D level with AM given prior hypercalcemia (10.3 in Jun and appears has history of stones, bilaterally, [place] [facility] [place] * Vit D level 26.5 - of note, on alendronate in past but self discontinued. Will check PTH in AM but rec replacement pending to prevent continued stone formation (was appropriately elevated to 132.6 in December 2021, suspect similar levels) Monitor labs in AM (2) Bacteremia: Plan: as above (3) Sepsis: Plan: 2nd to pyelo w/ obstructing stone, lactic 2.1 tx as outlined (4) Acute kidney injury: Plan: Baseline Cr appears ~1, however ~1.2 recently Cr 1.74 on admit, s/p cysto as above for obstructing stone, was given 2L IVF Cr 2.27 and BUN 33, ordered additional IVF as above Renal dose meds when able, avoid nephrotoxic medications BMP in AM (5) Left ureteral calculus: Plan: as above, s/p bilateral stents with Urology 06/12 (6) Depression: Plan: recent admission for accidental overdsoe, on seroquel hs, will restart lower dose prozac 10mg am can titrate up to 20mg outpatient continue seroquel 150mg daily mood stable (7) Hypertension: Plan: formulary substitute for nebivolol for metoprolol 200mg BID, BP 116/75 BP stable but borderline low, IVF as above (8) Vitamin D deficiency: Plan: prior deficiency, hx of thoracic compression fractures T11/T12 after a fall, rx for alendronate outpatient but patient discontinued it because she felt it caused swelling Vit D level checked as above, low. PTH level for am likely rec Vit D replacement to prevent continued stone formation given above f/u outpt pcp (9) Hypomagnesemia: Plan: Low 1.6 -- 2gm IV ordered for this morning Labs in AM (10) B12 deficiency: Plan: MCV 95-97 over the past year, complaints of memory issues at baseline. on metformin 500mg HS outpatient (prior A1c December 5.6) B12 resulted at 158-- IM replacement while inpatient and rec'd continued PO supplementation at discharge Plan Heparin for DVT prevention, will consult PT/OT while inpatient continued inpatient stay, monitor cx, IVF, pain medications as outlined Vit D replacement/PTH level in AM Admission and Anticipated Discharge Date Admission Date: June 12, 2022 Subjective Patient evaluated this morning, laying in bed. No acute distress.Patient reports feeling much better than she did on admission. No further left lower back pain but having some bladder spasms lower abdomen. Discussed ordering dose of pyridium x 1 now and continue as needed for spasm. States her urine is still slightly bloody, could be from stent/stone irritation and will continue to monitor. Discussed positive blood cultures and will monitor urine culture results and tailor abx based on sensitivities. No further high grade temps but did have low grade 37.6C this morning. Encouraged incentive spirometer. Review of Systems Review of Systems: All systems reviewed & are unremarkable except as noted in HPI & below Physical Exam Physical Exam: General: WD/WN obese female sitting in bed on her side, NAD HEENT: head normocephalic, atraumatic, mm slighlty dry, trache midline without deviation Resp: CTAB, diminished in the bases with associated crackles (improved with cough), no w/r, on room air 95% CV: RRR, no m/r/g, no pitting edema or calf tenderness GI: +BS, soft nontender : no villafuerte, NO CVA tenderness MSk/Neuro: moves all extremities, no focal deficit, no slurred speech, answering questions appropriate Psych: AOX3, cooperative and pleasant, flat affect Skin: warm, dry Results & Data Results & Data ([facility]) Vital Signs (Past 12 Hours) Vital Signs Temp Pulse Resp BP Pulse Ox O2 Del Method 06/13/22 03:38 36.9 C 88 16 116/75 96 Room Air 06/13/22 00:23 36.6 C 90 16 124/76 92 Room Air 06/12/22 21:21 85 16 96/60 L 93 Room Air 06/12/22 21:11 37.2 C Laboratory Results 06/13/22 06/13/22 06/13/22 Range/Units 08:35 08:35 06:35 WBC (4.8-10.8) K/ul RBC (3.93-5.22) M/uL Hgb (12.0-16.0) g/dl Hct (34.1-44.9) % MCV (80.0-100.0) fL MCH (25.0-34.0) pg MCHC (32.0-36.0) g/dL RDW Std Deviation (36.4-46.3) fL RDW Coeff of Philomena (11.5-14.5) % Plt Count (130-400) K/uL MPV (9.4-12.3) fL Sodium 134 L (136-145) mmol/L Potassium 4.8 (3.5-5.1) mmol/L Chloride 97 L (98-107) mmol/L Carbon Dioxide 26 (21-32) mmol/L Anion Gap 11 (3-11) BUN 33 H (6-23) mg/dl Creatinine 2.27 H D (0.6-1.2) mg/dl Est Cr Clr Drug Dosing 25.2 ml/min Est GFR ( Amer) 25.6 ml/min Est GFR (Non-Af Amer) 22.1 ml/min BUN/Creatinine Ratio 14.5 (10-20) Glucose 124 H (70-99(Fasting)) mg/dl Calcium 8.0 L (8.5-10.1) mg/dl Magnesium 1.6 L (1.7-2.4) mg/dl Vitamin B12 158 L (180-914) pg/ml 25-OH Vitamin D Total 26.5 L (30-100) ng/ml Enterobacterales (PCR) (NotDetected) Klebsiella oxytoca PCR (NotDetected) mcr-1 Colistin Res Gene PCR (NotDetected) blaIMP Car res Gene PCR (NotDetected) KPC-Carbap Res Gene PCR (NotDetected) blaNDM Car Res Gene PCR (NotDetected) OXA-48 Carbapenem Resis Gene (PCR) (NotDetected) blaVIM Car Res Gene PCR (NotDetected) CTX-M Gene Resistance (PCR) (NotDetected) Bld Cult ID Panel PCR (NotDetected) 06/13/22 06/12/22 Range/Units 06:35 06:29 WBC 19.59 H (4.8-10.8) K/ul RBC 3.59 L (3.93-5.22) M/uL Hgb 10.9 L (12.0-16.0) g/dl Hct 34.1 (34.1-44.9) % MCV 95.0 (80.0-100.0) fL MCH 30.4 (25.0-34.0) pg MCHC 32.0 (32.0-36.0) g/dL RDW Std Deviation 48.9 H (36.4-46.3) fL RDW Coeff of Philomena 13.9 (11.5-14.5) % Plt Count 266 (130-400) K/uL MPV 9.5 (9.4-12.3) fL Sodium (136-145) mmol/L Potassium (3.5-5.1) mmol/L Chloride (98-107) mmol/L Carbon Dioxide (21-32) mmol/L Anion Gap (3-11) BUN (6-23) mg/dl Creatinine (0.6-1.2) mg/dl Est Cr Clr Drug Dosing ml/min Est GFR ( Amer) ml/min Est GFR (Non-Af Amer) ml/min BUN/Creatinine Ratio (10-20) Glucose (70-99(Fasting)) mg/dl Calcium (8.5-10.1) mg/dl Magnesium (1.7-2.4) mg/dl Vitamin B12 (180-914) pg/ml 25-OH Vitamin D Total (30-100) ng/ml Enterobacterales (PCR) DETECTED A (NotDetected) Klebsiella oxytoca PCR DETECTED A (NotDetected) mcr-1 Colistin Res Gene PCR Not Detected (NotDetected) blaIMP Car res Gene PCR Not Detected (NotDetected) KPC-Carbap Res Gene PCR Not Detected (NotDetected) blaNDM Car Res Gene PCR Not Detected (NotDetected) OXA-48 Carbapenem Resis Gene (PCR) Not Detected (NotDetected) blaVIM Car Res Gene PCR Not Detected (NotDetected) CTX-M Gene Resistance (PCR) Not Detected (NotDetected) Bld Cult ID Panel PCR See PCR Comment (NotDetected) Diagnostic Findings Abdomen Fluoroscopy 06/12/22 00:00 FL KUB CLINICAL HISTORY: BILAT STENT PLACEMENT COMPARISON STUDY: CT of the abdomen and pelvis performed earlier today. FLUOROSCOPY TIME: 7.6 seconds. FLUOROSCOPIC IMAGES: 2 FINDINGS: Fluoroscopy was provided during placement of bilateral ureteral stents. Filling defects within the right renal pelvis correspond to calculi on CT. A radiodensity projects over the left kidney. IMPRESSION: Fluoroscopy provided during placement of bilateral ureteral stents. ACT 112: Negative or not required by law. Electronically signed by: Vicente Mcgee M.D. 06/12/2022 10:37 AM PG Care Time/CCT Total # of Minutes Spent Total Time Spent with Patient: Total time spent is greater than 50% in coordination of care (as documented) at patient's floor/unit and/or counseling patient: Coding Level of Care Code 63402 Subseq Hosp Care Lvl 3 Diagnoses Pyelonephritis N12 Bacteremia R78.81 Sepsis A41.9 Acute kidney injury N17.9 Left ureteral calculus N20.1 Depression F32.9 Hypertension I10 Vitamin D deficiency E55.9 Hypomagnesemia E83.42 B12 deficiency E53.8
[2022-06-13] MEDS ORDERED: QUEtiapine FUMARATE 100 MG TABLET PO SCH (09:00)
[2022-06-13] MEDS: SODIUM CHLORIDE 0.9% 1000ML 1,000 ML IV SCH ×2 (09:18→19:29)
[2022-06-13] MEDS: MAGNESIUM SULFATE / D5W 1 GM/100 ML BAG IV SCH ×2 (09:18→11:32)
[2022-06-13] MEDS: HEPARIN SOD 5,000 UNIT/0.5 ML VIAL SQ SCH ×2 (09:19→21:19)
[2022-06-13] MEDS: METOPROLOL TARTRATE 100 MG TAB PO SCH ×2 (09:19→21:19)
[2022-06-13] MEDS: FLUoxetine HCL 10 MG CAP PO SCH (09:53)
[2022-06-13] MEDS ORDERED: PHENAZOPYRIDINE HCL 100 MG TAB PO PRN (10:21)
[2022-06-13] MEDS ORDERED: PHENAZOPYRIDINE HCL 200 MG TAB PO ONE (10:45)
--- NOTE | 2022-06-13 11:09 | Urology Progress Note ---
Date of Service June 13, 2022 Assessment & Plan (1) Left ureteral calculus: (2) Acute kidney injury: (3) Bacteremia: Plan: 62 yo F admitted for obstructing left ureteral calculus with urosepsis; right UPJ calculus. - Pt POD#1 s/p cystoscopy and bilateral ureteral stent placement. - Subjectively doing better today. - Febrile yesterday evening (Tmax 39.1) and this AM (T 38.0). - Lab work reviewed - creatinine 2.27, WBC 19.59 - continue to trend. - Tolerating bilateral ureteral stents with minimal bother. - Blood cultures showing prelim gram negative bacilli, repeat blood cultures pending - on IV Zosyn. - Intraop culture from aspiration of ureter showing gram negative bacilli, urine culture pending. - Continue broad spectrum antibiotics, follow cultures and narrow per sensitivities when available. - Continue supportive care, antibiotics, and management per primary service. - Urology will follow. Admission and Anticipated Discharge Date Admission Date: June 12, 2022 Subjective Patient seen and examined at bedside this AM. Febrile yesterday evening and this AM. She is awake and resting in bed, appears comfortable. Subjectively feels better today. No flank or abdominal pain. She is voiding without difficulty, notes mild dysuria and hematuria. Occasional nausea, no vomiting. No fever or chills at present. Review of Systems Constitutional: as per Subjective / HPI Gastrointestinal: as per Subjective / HPI Genitourinary: as per Subjective / HPI Physical Exam Constitutional: + obese; no acute distress Respiratory: no respiratory distress and no labored breathing Cardiovascular: Extremities: no pedal edema Gastrointestinal (Abdomen): Inspection/Auscultation: abdomen normal to inspection; abdomen not distended Percussion/Palpation: abdomen soft; abdomen nontender Psychiatric: Orientation: alert and oriented x 3 Genitourinary: no CVA tenderness Results & Data ([facility]) Vital Signs (Past 12 Hours) Vital Signs Temp Pulse Pulse Resp BP Pulse Ox O2 Del Method 06/13/22 09:04 89 102/66 95 Room Air 06/13/22 08:58 37.6 C H 06/13/22 08:44 38.0 C H 90 18 103/58 L 92 Room Air 06/13/22 03:38 36.9 C 88 16 116/75 96 Room Air 06/13/22 00:23 36.6 C 90 16 124/76 92 Room Air PG Care Time/CCT Total # of Minutes Spent Total Time Spent with Patient: Total time spent is greater than 50% in coordination of care (as documented) at patient's floor/unit and/or counseling patient: Coding Level of Care Code 51082 Subseq Hosp Care Lvl 2 Diagnoses Left ureteral calculus N20.1 Acute kidney injury N17.9 Bacteremia R78.81
[2022-06-13] MEDS: CYANOCOBALAMIN 1000 MCG/ML VIAL IM SCH (12:01)
[2022-06-13] MEDS ORDERED: Nursing to Pharmacy Communication SCH (16:45)
[2022-06-13] MEDS: QUEtiapine FUMARATE 100 MG TABLET PO SCH (19:07)
[2022-06-13] MEDS: ACETAMINOPHEN 325 MG TAB PO PRN (22:13)
[2022-06-14] MEDS: PIPERACILLIN/TAZOBACTAM 4.5 GM in DEXTROSE 5% 100 ML IV SCH (06:05)
[2022-06-14 07:56] LABS: Hematocrit (blood only) 33.4 % (34.1-44.9); Hemoglobin 10.6 g/dl (12.0-16.0); Mean Corpuscular Hemoglobin 30.8 pg (25.0-34.0); Mean Corpuscular Hgb Conc 31.7 g/dL (32.0-36.0); Mean Corpuscular Volume 97.1 fL (80.0-100.0); Mean Platelet Volume 9.8 fL (9.4-12.3); Platelet Count 237 K/uL (130-400); RDW Coefficient of Variation 13.9 % (11.5-14.5); RDW Standard Deviation 49.9 fL (36.4-46.3); Red Blood Count 3.44 M/uL (3.93-5.22); White Blood Count 12.75 K/ul (4.8-10.8)
--- NOTE | 2022-06-14 08:21 | Hospitalist Progress Note ---
Date of Service June 14, 2022 Assessment & Plan (1) Pyelonephritis: Plan: Pyelonephritis with left hydroureter from 9mm renal stone (Hx stones, staghorn, potassium citrate as meds per prior notes). CTAP: 1. 9 mm x 5 mm proximal left ureteral calculus which results in moderate left hydronephrosis with delayed nephrogram and perinephric stranding. Multiple right renal pelvis calculi that measure up to 1.4 cm. No right hydronephrosis. Moderate right and mild left renal cortical thinning. Urology consulted POD#2 s/p Cystoscopy, Bilateral Ureteral Stent Insertion(Bilateral) - Kishor Amanda MD Continue Zosyn (started 06/08, day 3) --> switched to Ceftriaxone for now (prevent worsening renal function), likely able to d/c on Ciprofloxacin to complete 2 week course Urine cx -- Klebsiella oxytoca, pansensitive Blood cultures PCR enterobacterales --> klebsiella oxytoca Highest temp 39.1C 06/12 at 19:15, 38C this morning WBC 22k --> 12.7k (although note patient with chronic thrombocytosis reported) Did check B12 (plt elevated), B12 low 158, likely from metformin use -- see below Pain control, antiemetics --> Added Pyridium prn effective and continue. Avoiding and will d/c toradol (had not gotten) Cr bumped to 2.27 post operatively (note did have some hypotension) ordered 2L NSS overnight, 2gm IV magnesium for mag 1.6 --> Cr 2.28 and additional IVF ordered as still slightly dry on exam. Mag wnl Vit D level with AM given prior hypercalcemia (10.3 in Jun and appears has history of stones, bilaterally, followed with [facility] [place]) * Vit D level 26.5 - of note, on alendronate in past but self discontinued. * Will check PTH in AM but rec replacement pending to prevent continued stone formation (was appropriately elevated to 132.6 in December 2021, suspect similar levels) Vit D 27.5 -- started 1000mcg Vit D daily, hopefully could help prevent future stone formation PT/OT consulted -- rec home w/ sister 24hour, then HH PT. CM to follow Patient hopeful for discharge in next 24-48 hours Monitor labs in AM (2) Bacteremia: Plan: as above (3) Sepsis: Plan: present on admission with elevated Lactic 3.1-->2.1 on repeat, elevated WBC, fever 39.1C, infection with pyelo 2nd to obstructing stone tx as outlined (4) Acute kidney injury: Plan: Baseline Cr appears ~1, however ~1.2 recently Cr 1.74 on admit, s/p cysto as above for obstructing stone, was given 2L IVF Cr 2.27 and BUN 33, ordered additional IVF as above --> 2.28 however still slightly dry on exam and additional 1L ordered Renal dose meds when able, avoid nephrotoxic medications BMP in AM (5) Left ureteral calculus: Plan: as above, s/p bilateral stents with Urology 06/12 outpt f/u (6) Depression: Plan: recent admission for accidental overdsoe, on seroquel 150mg hs which has been continued restarted lower dose prozac 10mg QAM can titrate up to 20mg outpatient mood stable (7) Hypertension: Plan: formulary substitute for nebivolol for metoprolol 200mg BID BP borderline yesterday morning, improved and stable (8) Vitamin D deficiency: Plan: prior deficiency, hx of thoracic compression fractures T11/T12 after a fall, rx for alendronate outpatient but patient discontinued it because she felt it caused swelling Vit D level checked as above, low. PTH level for am -- ELEVATED 193.1, although elevated appropriately, does seem to be out of proportion to Vit D level started 1000iu Vit d daily, rec f/u nephrology outpatient (9) Hypomagnesemia: Plan: Low 1.6 -- 2gm IV ordered , repeat 2.5 (10) B12 deficiency: Plan: MCV 95-97 over the past year, complaints of memory issues at baseline. on metformin 500mg HS outpatient (prior A1c December 5.6) B12 resulted at 158 -- IM replacement while inpatient and rec'd continued PO supplementation at discharge (11) Hyperparathyroidism: Plan: hx elevated PTH, low Vitamin D. appears last seen by Dr Avelar 2018 -- hx recurrent nephrolithiasis with calcium oxalate, carbonate apatite and and uric acid stone at least since 2011 prior recs for potassium citrate 15meq 2 tablets BID and allopurinol 100mg does not appear on either of these medications currently, will discuss in follow up but if able to prevent future stone formation would recommend Plan Heparin for DVT prevention Consult PT/OT while inpatient -- rec'ing home with sister staying initially and PT Of note, patient reportedly was to get RW and BSC last admit but never delivered. Will touch base with CM. continued inpatient stay, abx switched to Ceftriaxone for now likely Cipro x 2 week course at discharge will need outpt f/u urology for definitive stone treatment Admission and Anticipated Discharge Date Admission Date: June 12, 2022 Subjective Patient evaluated this morning, sitting up talking on the phone. States feeling much better. urine time recorder, medications effective for spams. No chills reported but had fever this morning, hopefully will be resolving.Discussed switching abx and monitoring for now but possible switch to PO tomorrow as patient hopeful for discharge tomorrow if possible. Eating/drinking, moving her bowels without issue. No pain reported currently. Reviewed B12 deficiency and continue PO supplementation at discharge. MM still slightly dry but encouraging PO intake and will order additional 1L IVF for today and monitor labs in AM. Review of Systems Review of Systems: All systems reviewed & are unremarkable except as noted in HPI & below Physical Exam Physical Exam: General: WD/WN obese female sitting up in bed talking on her phone, NAD, improvement in mood/appetite/energy, NAD HEENT: head normocephalic, atraumatic, mm still slightly dry, trachea midline without deviation (thick neck) Resp: CTAB, diminished in the bases with associated crackles (improved with cough), no w/r, on room air 95% CV: RRR, no m/r/g, no pitting edema or calf tenderness GI: +BS, soft nontender : no villafuerte, NO CVA tenderness MSk/Neuro: moves all extremities, no focal deficit, no slurred speech, answering questions appropriate Psych: AOX3, cooperative and pleasant, improved affect Skin: warm, dry Results & Data Results & Data ([facility]) Vital Signs (Past 12 Hours) Vital Signs Temp Pulse Pulse Resp BP BP Pulse Ox 06/14/22 07:10 38.0 C H 73 17 158/73 H 95 06/13/22 23:01 37.5 C 06/13/22 22:03 38.1 C H 06/13/22 22:01 38.7 C H 78 20 124/79 92 06/13/22 21:18 37.3 C 79 16 125/72 93 O2 Del Method 06/14/22 07:10 Room Air 06/13/22 23:01 06/13/22 22:03 06/13/22 22:01 Room Air 06/13/22 21:18 Room Air Laboratory Results 06/14/22 06/14/22 06/14/22 Range/Units 07:03 07:03 07:03 WBC 12.75 H (4.8-10.8) K/ul RBC 3.44 L (3.93-5.22) M/uL Hgb 10.6 L (12.0-16.0) g/dl Hct 33.4 L (34.1-44.9) % MCV 97.1 (80.0-100.0) fL MCH 30.8 (25.0-34.0) pg MCHC 31.7 L (32.0-36.0) g/dL RDW Std Deviation 49.9 H (36.4-46.3) fL RDW Coeff of Philomena 13.9 (11.5-14.5) % Plt Count 237 (130-400) K/uL MPV 9.8 (9.4-12.3) fL Sodium 135 L (136-145) mmol/L Potassium 3.8 D (3.5-5.1) mmol/L Chloride 100 (98-107) mmol/L Carbon Dioxide 24 (21-32) mmol/L Anion Gap 11 (3-11) BUN 32 H (6-23) mg/dl Creatinine 2.28 H (0.6-1.2) mg/dl Est Cr Clr Drug Dosing 25.1 ml/min Est GFR ( Amer) 25.5 ml/min Est GFR (Non-Af Amer) 22.0 ml/min BUN/Creatinine Ratio 14.0 (10-20) Glucose 101 H (70-99(Fasting)) mg/dl Calcium 8.3 L (8.5-10.1) mg/dl Magnesium 2.5 H (1.7-2.4) mg/dl Total Bilirubin 1.2 H (0.2-1.0) mg/dl AST 12 L (13-39) U/L ALT 9 (7-52) U/L Alkaline Phosphatase 74 (34-104) U/L Total Protein 6.9 (6.0-8.3) gm/dl Albumin 3.3 L (3.4-5.0) gm/dl Globulin 3.6 (2.5-4.0) gm/dl Albumin/Globulin Ratio 0.9 (0.9-2) Vitamin B12 (180-914) pg/ml PTH Intact 193.1 H (12.0-88.0) pg/ml 06/13/22 Range/Units 08:35 WBC (4.8-10.8) K/ul RBC (3.93-5.22) M/uL Hgb (12.0-16.0) g/dl Hct (34.1-44.9) % MCV (80.0-100.0) fL MCH (25.0-34.0) pg MCHC (32.0-36.0) g/dL RDW Std Deviation (36.4-46.3) fL RDW Coeff of Philomena (11.5-14.5) % Plt Count (130-400) K/uL MPV (9.4-12.3) fL Sodium (136-145) mmol/L Potassium (3.5-5.1) mmol/L Chloride (98-107) mmol/L Carbon Dioxide (21-32) mmol/L Anion Gap (3-11) BUN (6-23) mg/dl Creatinine (0.6-1.2) mg/dl Est Cr Clr Drug Dosing ml/min Est GFR ( Amer) ml/min Est GFR (Non-Af Amer) ml/min BUN/Creatinine Ratio (10-20) Glucose (70-99(Fasting)) mg/dl Calcium (8.5-10.1) mg/dl Magnesium (1.7-2.4) mg/dl Total Bilirubin (0.2-1.0) mg/dl AST (13-39) U/L ALT (7-52) U/L Alkaline Phosphatase (34-104) U/L Total Protein (6.0-8.3) gm/dl Albumin (3.4-5.0) gm/dl Globulin (2.5-4.0) gm/dl Albumin/Globulin Ratio (0.9-2) Vitamin B12 158 L (180-914) pg/ml PTH Intact (12.0-88.0) pg/ml PG Care Time/CCT Total # of Minutes Spent Total Time Spent with Patient: Total time spent is greater than 50% in coordination of care (as documented) at patient's floor/unit and/or counseling patient: Coding Level of Care Code 66974 Subseq Hosp Care Lvl 3 Diagnoses Pyelonephritis N12 Bacteremia R78.81 Sepsis A41.9 Acute kidney injury N17.9 Left ureteral calculus N20.1 Depression F32.9 Hypertension I10 Vitamin D deficiency E55.9 Hypomagnesemia E83.42 B12 deficiency E53.8 Hyperparathyroidism E21.3
[2022-06-14 08:29] LABS: Albumin Globulin Ratio 0.9 (0.9-2); Albumin Level 3.3 gm/dl (3.4-5.0); Bilirubin,Total 1.2 mg/dl (0.2-1.0); Calcium 8.3 mg/dl (8.5-10.1); Creatinine Clr Calc Pharmacy 25.1 ml/min; Est GFR (African American) 25.5 ml/min; Globulin 3.6 gm/dl (2.5-4.0); Magnesium 2.5 mg/dl (1.7-2.4); Potassium 3.8 mmol/L (3.5-5.1); Total Protein 6.9 gm/dl (6.0-8.3)
[2022-06-14] MEDS ORDERED: SODIUM CHLORIDE 0.9% 1000ML 1,000 ML IV SCH (08:45)
[2022-06-14] MEDS: METOPROLOL TARTRATE 100 MG TAB PO SCH ×2 (09:02→20:20)
--- NOTE | 2022-06-14 09:02 | Urology Progress Note ---
Date of Service June 14, 2022 Assessment & Plan (1) Acute kidney injury: (2) Bacteremia: (3) Pyelonephritis: Plan Presented to the ER with urosepsis secondary to an obstructing left ureteral calculus and a right UPJ calculus Bilateral ureteral stents placed Gradual improvement but still not entirely resolved -not on expected time course Pathogen has been identified as Klebsiellapansensitive Currently on Zosyn Given her JACI, it may be best to transition her off of Zosyn as well as avoid further ketorolac Anticipate gradual improvement in both her kidney function and her fevers over the next 2 to 3 days next will ultimately need outpt f/u to treat her stones Admission and Anticipated Discharge Date Admission Date: June 12, 2022 Subjective Subjectively feeling better She is urinating adequately although frequently Febrile overnight with a T-max of 38 7, T-current 38 0 Denies any chills or rigors No nausea Unfortunately her creatinine has not yet correctedcurrently 2.28 Leukocytosis is gradually improving, currently 12,000 Physical Exam Constitutional: well developed and well nourished Respiratory: no respiratory distress Cardiovascular: Extremities: no pedal edema Gastrointestinal (Abdomen): Inspection/Auscultation: abdomen normal to inspection Results & Data ([facility]) Vital Signs (Past 12 Hours) Vital Signs Temp Pulse Pulse Resp BP BP Pulse Ox 06/14/22 07:10 38.0 C H 73 17 158/73 H 95 06/13/22 23:01 37.5 C 06/13/22 22:03 38.1 C H 06/13/22 22:01 38.7 C H 78 20 124/79 92 06/13/22 21:18 37.3 C 79 16 125/72 93 O2 Del Method 06/14/22 07:10 Room Air 06/13/22 23:01 06/13/22 22:03 06/13/22 22:01 Room Air 06/13/22 21:18 Room Air PG Care Time/CCT Total # of Minutes Spent Total Time Spent with Patient: Total time spent is greater than 50% in coordination of care (as documented) at patient's floor/unit and/or counseling patient: Coding Level of Care Code 90419 Subseq Hosp Care Lvl 3 Diagnoses Acute kidney injury N17.9 Bacteremia R78.81 Pyelonephritis N12
[2022-06-14] MEDS: FLUoxetine HCL 10 MG CAP PO SCH (09:03)
[2022-06-14] MEDS: CYANOCOBALAMIN 1000 MCG/ML VIAL IM SCH (09:03)
[2022-06-14] MEDS: HEPARIN SOD 5,000 UNIT/0.5 ML VIAL SQ SCH ×2 (09:04→20:21)
[2022-06-14] MEDS: CHOLECALCIFEROL 1,000 UNITS 25 MCG TAB PO SCH (10:19)
[2022-06-14] MEDS ORDERED: cefTRIAXone SODIUM 2,000 MG in DEXTROSE 5% 50 ML IV SCH (14:00)
[2022-06-14] MEDS: QUEtiapine FUMARATE 100 MG TABLET PO SCH (20:20)
[2022-06-15 07:07] LABS: Hematocrit (blood only) 31.1 % (34.1-44.9); Mean Corpuscular Hgb Conc 32.2 g/dL (32.0-36.0); Mean Corpuscular Volume 96.3 fL (80.0-100.0); Mean Platelet Volume 9.9 fL (9.4-12.3); Platelet Count 239 K/uL (130-400); RDW Coefficient of Variation 13.8 % (11.5-14.5); RDW Standard Deviation 49.1 fL (36.4-46.3); Red Blood Count 3.23 M/uL (3.93-5.22); White Blood Count 8.15 K/ul (4.8-10.8)
--- NOTE | 2022-06-15 07:30 | Hospitalist Progress Note ---
Date of Service June 15, 2022 Assessment & Plan (1) Pyelonephritis: Plan: Pyelonephritis with left hydroureter from 9mm renal stone (Hx stones, staghorn, potassium citrate as meds per prior notes). CTAP: 1. 9 mm x 5 mm proximal left ureteral calculus which results in moderate left hydronephrosis with delayed nephrogram and perinephric stranding. Multiple right renal pelvis calculi that measure up to 1.4 cm. No right hydronephrosis. Moderate right and mild left renal cortical thinning. Urology consulted POD#3 s/p Cystoscopy, Bilateral Ureteral Stent Insertion(Bilateral) - Kishor Amanda MD Continue Zosyn (started 06/08, day 3) --> switched to Ceftriaxone 06/14 for now (prevent worsening renal function), likely able to d/c on Ciprofloxacin to complete 2 week course Urine cx -- Klebsiella oxytoca, pansensitive Blood cultures PCR enterobacterales --> klebsiella oxytoca Highest temp 39.1C 06/12 at 19:15, temp 38C AM 06/14 but hadn't been provided tylenol until later in the afternoon. NO FURTHER TEMPS since 06/14 WBC 22k --> 12.7k (although note patient with chronic thrombocytosis reported) Did check B12 (plt elevated), B12 low 158, likely from metformin use -- see below Pain control, antiemetics --> Added Pyridium prn effective and continue. Avoiding and will d/c toradol (had not gotten) Cr bumped to 2.27 post operatively (note did have some hypotension) ordered 2L NSS overnight, 2gm IV magnesium for mag 1.6 --> Cr 2.28 and additional 1L IVF ordered as still slightly dry on exam. Mag wnl 500cc NSS ordered for this morning, however Cr improving 1.82 and BUN 27. 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 encouraged to push fluids at home but would rec repeat labs early next week to ensure kidney function stays stable Vit D level with AM given prior hypercalcemia (10.3 in Jun and appears has history of stones, bilaterally, followed with [facility] in the past) * Vit D level 26.5 - of note, on alendronate in past but self discontinued. * Will check PTH in AM but rec replacement pending to prevent continued stone formation (was appropriately elevated to 132.6 in December 2021, suspect similar levels) Vit D 27.5 -- started 1000mcg Vit D daily, hopefully could help prevent future stone formation was to be on potassium citrate/allopurinol per nephrology. rec f/u PT/OT consulted -- rec home w/ sister 24hour, then PT. CM to follow Patient hopeful for discharge in next 24-48 hours Monitor labs in AM (2) Bacteremia: Plan: as above (3) Sepsis: Plan: present on admission with elevated Lactic 3.1-->2.1 on repeat, elevated WBC, fever 39.1C, infection with pyelo 2nd to obstructing stone tx as outlined (4) Acute kidney injury: Plan: Baseline Cr appears ~1, however ~1.2 recently Cr 1.74 on admit, s/p cysto as above for obstructing stone, was given 2L IVF Cr 2.27 and BUN 33, ordered additional IVF as above --> 2.28 however still slightly dry on exam and additional 1L ordered Renal dose meds when able, avoid nephrotoxic medications BMP in AM (5) Left ureteral calculus: Plan: as above, s/p bilateral stents with Urology 06/12 outpt f/u (6) Depression: Plan: recent admission for accidental overdsoe, on seroquel 150mg hs which has been continued restarted lower dose prozac 10mg QAM can titrate up to 20mg outpatient mood stable (7) Hypertension: Plan: formulary substitute for nebivolol for metoprolol 200mg BID BP borderline yesterday morning, improved and stable (8) Vitamin D deficiency: Plan: prior deficiency, hx of thoracic compression fractures T11/T12 after a fall, rx for alendronate outpatient but patient discontinued it because she felt it caused swelling Vit D level checked as above, low. PTH level for am -- ELEVATED 193.1, although elevated appropriately, does seem to be out of proportion to Vit D level started 1000iu Vit d daily, rec f/u nephrology outpatient (9) Hypomagnesemia: Plan: Low 1.6 -- 2gm IV ordered , repeat 2.5 (10) B12 deficiency: Plan: MCV 95-97 over the past year, complaints of memory issues at baseline. on metformin 500mg HS outpatient (prior A1c December 5.6) B12 resulted at 158 -- IM replacement while inpatient and rec'd continued PO supplementation at discharge (11) Hyperparathyroidism: Plan: hx elevated PTH, low Vitamin D. appears last seen by Dr Avelar 2018 -- hx recurrent nephrolithiasis with calcium oxalate, carbonate apatite and and uric acid stone at least since 2011 prior recs for potassium citrate 15meq 2 tablets BID and allopurinol 100mg does not appear on either of these medications currently, will discuss in follow up but if able to prevent future stone formation would recommend Plan Heparin for DVT prevention Consult PT/OT while inpatient -- rec'ing home with sister staying initially and HH PT Of note, patient reportedly was to get RW and BSC last admit but never delivered. Will touch base with CM. continued inpatient stay, abx switched to Ceftriaxone for now likely Cipro x 2 week course at discharge will need outpt f/u urology for definitive stone treatment Admission and Anticipated Discharge Date Admission Date: June 12, 2022 Results & Data Results & Data ([facility]) Vital Signs (Past 12 Hours) Vital Signs Temp Pulse Pulse Resp BP Pulse Ox Pulse Ox 06/15/22 07:22 36.8 C 68 17 121/72 92 06/15/22 01:25 78 93 06/14/22 20:16 37.0 C 70 16 127/74 94 O2 Del Method O2 Del Method 06/15/22 07:22 Room Air 06/15/22 01:25 Room Air 06/14/22 20:16 Room Air PG Care Time/CCT Total # of Minutes Spent Total Time Spent with Patient: Total time spent is greater than 50% in coordination of care (as documented) at patient's floor/unit and/or counseling patient: Coding Diagnoses Pyelonephritis N12 Bacteremia R78.81 Sepsis A41.9 Acute kidney injury N17.9 Left ureteral calculus N20.1 Depression F32.9 Hypertension I10 Vitamin D deficiency E55.9 Hypomagnesemia E83.42 B12 deficiency E53.8 Hyperparathyroidism E21.3
[2022-06-15 07:48] LABS: BUN Creatinine Ratio 14.8 (10-20); Calcium 8.4 mg/dl (8.5-10.1); Creatinine Clr Calc Pharmacy 32.1 ml/min; Est GFR (African American) 33.4 ml/min; Est GFR (Non-African American) 28.8 ml/min; Magnesium 2.3 mg/dl (1.7-2.4); Potassium 3.8 mmol/L (3.5-5.1)
[2022-06-15] MEDS: METOPROLOL TARTRATE 100 MG TAB PO SCH (08:03)
[2022-06-15] MEDS: CYANOCOBALAMIN 1000 MCG/ML VIAL IM SCH (08:03)
[2022-06-15] MEDS: HEPARIN SOD 5,000 UNIT/0.5 ML VIAL SQ SCH (08:03)
[2022-06-15] MEDS: FLUoxetine HCL 10 MG CAP PO SCH (08:03)
[2022-06-15] MEDS: CHOLECALCIFEROL 1,000 UNITS 25 MCG TAB PO SCH (08:03)
[2022-06-15] MEDS ORDERED: SODIUM CHLORIDE 0.9% 1000ML 500 ML IV SCH (09:00)
[2022-06-15] MEDS ORDERED: CIPROFLOXACIN 500 MG TAB PO SCH (11:00)
--- NOTE | 2022-06-15 14:06 | Discharge Summary ---
Date of Service June 15, 2022 Admission HPI Per Admitting Provider Patient presented with 2 days of fevers or chills and left-sided lower back pain. Patient did not have any other urinary symptoms such as dysuria hematuria or frequency. Patient became more ill over the last 24 hours with some associated nausea vomiting and loose bowel movements. Patient was most recently Neri Larkin due to medication mismanagement. She was found to have a significant hydronephrosis with 9 mm left-sided stone and a temperature of 103 F prior to arrival by EMS. He was admitted and taken urgently to the cystoscopy suite he was given Zosyn therapy and had cultures of blood and urine Admission Exam Per Admitting Provider The patient appeared well nourished and normally developed. He does not appear septic or toxic Vital signs as documented. Head exam is normocephalic atraumatic Neck is without JVD, thyromegaly, or carotid bruits. Lungs are clear to auscultation, no focal loss of breath sounds Cardiac exam, Rhythm is regular.. No murmurs, rubs or gallops. Abdominal exam reveals normal bowel sounds, soft minor left-sided tenderness and left-sided CVA angle tenderness Extremities are nonedematous and both pedal pulses are present Neurologic exam is alert and oriented, no focal loss of strength or sensation Skin is without bruises or rashes Psychologically is without concerns for anxiety or depression.. Principal Diagnosis Pyelonephritis, Bacteremia, Obstructing Kidney Stone Discharge Exam General: WD/WN obese female sitting up in bed talking on her phone, NAD, improvement in mood/appetite/energy, NAD HEENT: head normocephalic, atraumatic, mm much improved, trachea midline without deviation (thick neck) Resp: CTAB, diminished in the bases with associated crackles (improved with cough), no w/r, on room air 92% CV: RRR, no m/r/g, no pitting edema or calf tenderness GI: +BS, soft nontender : no villafuerte, NO CVA tenderness MSk/Neuro: moves all extremities, no focal deficit, no slurred speech, answering questions appropriate Psych: AOX3, cooperative and pleasant, improved affect Skin: warm, dry Discharge Data Allergies Allergy/AdvReac Type Severity Reaction Status Date / Time alendronate sodium AdvReac Severe SWELLING Verified 12/15/21 13:20 zolpidem [From Ambien] AdvReac Unknown caused Verified 12/15/21 13:20 change in temperment, sleep walks Consultations 06/12/22 08:46 ED Decision to Admit Stat 06/12/22 09:17 Consult Urology Stat Procedures Performed Operation Date: 06/12/22 09:00 Actual Procedures p Cystoscopy, Bilateral Ureteral Stent Insertion(Bilateral) - Kishor Amanda MD Ordered Studies Abdomen Fluoroscopy 06/12/22 00:00 FL KUB CLINICAL HISTORY: BILAT STENT PLACEMENT COMPARISON STUDY: CT of the abdomen and pelvis performed earlier today. FLUOROSCOPY TIME: 7.6 seconds. FLUOROSCOPIC IMAGES: 2 FINDINGS: Fluoroscopy was provided during placement of bilateral ureteral stents. Filling defects within the right renal pelvis correspond to calculi on CT. A radiodensity projects over the left kidney. IMPRESSION: Fluoroscopy provided during placement of bilateral ureteral stents. ACT 112: Negative or not required by law. Electronically signed by: Vicente Mcgee M.D. 06/12/2022 10:37 AM Chest X-Ray 06/12/22 06:11 XR chest 1V portable CLINICAL HISTORY: weakness COMPARISON STUDY: Chest radiograph May 22, 2022. FINDINGS: Lung volumes are normal. Minimal left basilar opacity favors atelectasis. There is no pneumothorax or pleural effusion. Cardiac size is normal. Mediastinal contours are normal. There is no evidence for pulmonary edema. IMPRESSION: No acute cardiopulmonary findings. ACT 112: Negative or not required by law. Electronically signed by: Vicente Mcgee M.D. 06/12/2022 6:46 AM Abdomen/Pelvis CT 06/12/22 06:55 CT OF THE ABDOMEN AND PELVIS WITH CONTRAST CLINICAL HISTORY: Left-sided sided LBP; fever, n/v/d COMPARISON STUDY: CT of the abdomen and pelvis July 08, 2020. Renal ultrasound December 27, 2021. TECHNIQUE: Following IV administration of 95 mL of Optiray, axial images of the abdomen and pelvis were obtained from the lung bases to the proximal femurs. Images were reviewed in the axial, sagittal, and coronal planes. IV contrast was administered without complication. Automated exposure control was utilized for the study. A dose lowering technique was utilized adhering to the principles of ALARA. CT DOSE: 1025.40 mGy.cm FINDINGS: A 9 mm by 5 mm proximal left ureteral calculus results in moderate left hydronephrosis with delayed nephrogram and perinephric stranding. There is no right hydronephrosis. There are several right renal pelvis calculi measure up to 1.4 cm. There is moderate right renal cortical thinning. There is mild left renal cortical thinning. 2.4 cm water adrenal nodule has slightly increased in size since CT of July 08, 2020. This favors an adenoma. No hepatic lesions are present. Spleen, left adrenal gland and pancreas are unremarkable. Is no biliary ductal dilatation status post cholecystectomy. The appendix is normal. There is no evidence for a bowel obstruction. There is no lymphadenopathy. There is no ascites. No acute fracture within the visualized skeletal structures. IMPRESSION: 1. 9 mm x 5 mm proximal left ureteral calculus which results in moderate left hydronephrosis with delayed nephrogram and perinephric stranding. 2. Multiple right renal pelvis calculi that measure up to 1.4 cm. No right hydronephrosis. 3. Moderate right and mild left renal cortical thinning. ACT 112: Negative or not required by law. Electronically signed by: Vicente Mcgee M.D. 06/12/2022 8:34 AM Hospital Course (1) Pyelonephritis: Pyelonephritis with left hydroureter from 9mm renal stone (Hx stones, staghorn, potassium citrate as meds per prior notes). CTAP: 1. 9 mm x 5 mm proximal left ureteral calculus which results in moderate left hydronephrosis with delayed nephrogram and perinephric stranding. Multiple right renal pelvis calculi that measure up to 1.4 cm. No right hydronephrosis. Moderate right and mild left renal cortical thinning. Urine and blood cultures with Klebsiella oxytoca, pansensitive Urology consulted s/p Cystoscopy, Bilateral Ureteral Stent Insertion(Bilateral) - Kishor Amanda MD 06/12 IV Zosyn (started 06/08) --> switched to Ceftriaxone 06/14 to prevent worsening renal function (did have hypotension post-op), --> discharged on Cipro (renal dosed 500mg Q12h) initially for 2 week total, but extended until stones definitively treated with Urology. -Discussed with Urology and will get in office in next 1-2wks for discussion definitive stone treatment Highest temp 39.1C 06/12 at 19:15, Temp 38C AM 8/30 but hadn't been provided tylenol until later in the afternoon. NO FURTHER TEMPS since AM 06/14. WBC 22k--> normalized on repeat 8.1k --Of note, patient with "chronic thrombocytosis" reported, --however did check B12 as plt elevated and was low at 125 and IM replacement while inpatient and PO continued at discharge Cr 1.26 at discharge earlier this month, 1.74 on admission Cr bumped to 2.28 post-operatively, IVF provided and repeat prior to d/c 1.82 and trending down/keeping up with PO intake also recommended f/u nephrology given hx stones and was to be taking potassium citrate/allopurinol for stones but hasn't in some time --Of note, Vit D 27.5 (better than prior), PTH elevated approp. --was placed on 50,000 ergocalciferol earlier this year x 8 weeks, then to be on 2000IU daily --sent on 1000IU in meantime given kidney stones until seen by nephro in follow up Repeat BMP ordered for monday to ensure kidney function improved/resolved -discussed to AVOID NSAIDS (had been taking at home) and utilize tylenol prn pain PT/OT rec return home with her sister, however PT did recommend HH. CM arranged, can take Monday (2) Bacteremia: as above (3) Sepsis: present on admission with elevated Lactic 3.1-->2.1 on repeat, elevated WBC, fever 39.1C, infection with pyelo 2nd to obstructing stone Improved with tx as outlined, no further temps since AM 06/14 (4) Acute kidney injury: Baseline Cr appears ~1, however ~1.2 recently Cr 1.74 on admit, s/p cysto as above for obstructing stone, was given 2L IVF with resulting BUN/Cr 33/2.27 and did continue IVF without much improvement but was dry on exam and additional 1L ordered 06/14 with repeat Cr 1.82 and switched from Zosyn to Ceftriaxone Given 500cc prior to d/c, keeping up with PO intake and 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 Cipro for abx, renal dosed as above Repeat BMP slip ordered for Monday as patient wanting to go home to ensure remains stable f/u PCP/nephrology/urology as outlined (5) Left ureteral calculus: as above, s/p bilateral stents with Urology 06/12 outpt f/u in next 1-2 weeks, remain on abx until treated (6) Depression: recent admission for accidental overdose, on seroquel 150mg hs which has been continued restarted lower dose prozac 10mg QAM -- rx at discharge can titrate up to 20mg outpatient mood stable prior to discharge (7) Hypertension: formulary substitute for nebivolol for metoprolol 200mg BID, continue usual meds at discharge BP improved prior to d/c, 121/72 (8) Vitamin D deficiency: prior deficiency, hx of thoracic compression fractures T11/T12 after a fall, rx for alendronate outpatient but patient discontinued it because she felt it caused swelling Vit D level checked as above, low. PTH level for am -- ELEVATED 193.1, although elevated appropriately, does seem to be out of proportion to Vit D level started 1000iu Vit d daily, rec f/u nephrology outpatient (had been on 50,000 weekly earlier this year by PCP) f/u PCP for repeat testing, nephro for additional medication adjustments (9) Hypomagnesemia: Low 1.6 -- 2gm IV ordered ,repeat stable x 2 days (10) B12 deficiency: MCV 95-97 over the past year, complaints of memory issues at baseline. on metformin 500mg HS outpatient (prior A1c December 5.6) discussed following up with PCP to ensure repeat BMP stable as borderline for metformin but ok to continue B12 resulted at 158-- IM replacement while inpatient and continued PO supplementation at discharge (11) Hyperparathyroidism: hx elevated PTH, low Vitamin D. appears last seen by Dr Avelar 2018 -- hx recurrent nephrolithiasis with calcium oxalate, carbonate apatite and and uric acid stone at least since 2011 prior recs for potassium citrate 15meq 2 tablets BID and allopurinol 100mg does not appear on either of these medications currently, will discuss in follow up but if able to prevent future stone formation would recommend in follow up Plan Heparin for DVT prevention while inpatient PT/OT consulted, ok to return home with sister Discontinued on continued Cipro until stones definitively treated Will need close outpt f/u Urology, recommend following up with Nephrology given hx stones as well and prior recs for medications. Total Time Total Time Spent Total Time Spent (In Minutes): 70 Discharge Plan Discharge Items Patient Disposition: Home - Self-Care Reason For Visit: PYELONEPHRITIS Discharge Diagnosis: Bacteremia, Pyelonephritis, Kidney Stone, UTI Goals: You have been hospitalized for an urgent problem which required surgery. During your stay at [facility], we have made an effort to correct the problem that brought you to the hospital while keeping you as comfortable as possible. Surgery and medications were used to bring your condition under control and your discharge instructions will include directions for any medications you should take after leaving the hospital. Please make sure to follow the advice of your surgeon regarding follow up with the surgeon and with your primary care provider. Activity: As commented below Non-emergency contact: Primary Care Provider, Health Communications Specialist and Urologist Call non-emergency contact if: you have any medication questions, your symptoms worsen, your pain is not controlled and you have a fever Follow-up/Referrals: Gary Leblanc MD [Primary Care Provider] - 06/27/22 11:00 am Kishor Amanda MD [Physician] - 06/30/22 1:00 pm (OFFICE WILL CALL PATIENT WITH HOSPITAL F/U; PER MARCO ANTONIO) Yesica Avelar MD [Physician] - (1 month) Ginny Carmichael CRNP [Nurse Practitioner] - 06/30/22 1:00 pm Diet: Carb Consistent or DM2 and Heart Healthy Addtl Attending Provider Instructions: You have been hospitalized for an infection in your urinary tract infection that spread to the blood. You were taken to the OR for cystoscopy and stent placement for an obstructing stone and will need further stone management in follow up with Urology. Cultures show infection with bacteria called KLEBSIELLA, and you were treated with IV antibiotics while in the hospital and are being sent on a pill antibiotic to continue for a total TWO WEEKS. --This antibiotic is CIPROFLOXACIN 500mg by mouth TWICE daily for another 11 days after tonight's dose for a total of 14 days of treatment. I have also sent additional two weeks in the meantime until you have completed treatment for the stone. As seen in the past, you had seen Dr Avelar from nephrology and they recommended you be on potassium citrate and allopurinol to prevent stones. You should consider following up with Dr Avelar or discussing this with your primary care provider in follow up. Your kidney function currently is borderline to be on metformin and I have sent in labs for repeat blood work on Monday to ensure your kidney function is stable/continues to improve. You should AVOID Ibuprofen/Advil/Motrin as discussed given renal function and stick to Tylenol as needed for pain. You have also been sent a prescription for Pyridium to use for bladder spasms. Please note this can cause your urine to appear orange in color. You have been started on low dose Prozac 10mg daily given anxiety/depression symptoms and this can be increased in follow up with your PCP. I also checked a B12 level which was low and you have been started on replacement. This can help with memory/balance/and neuropathy symptoms. You will continue 1000mcg daily at discharge. You should follow up with your PCP in the next 7-10 days to monitor your progress after discharge from the hospital. I have given you a dose of lasix prior to discharge as you were given extra IV fluids and sounded congested on examination. I have also sent a prescription for an additional 20mg pill for tomorrow and have changed the repeat labs to monitor your kidney function to Monday. Continue to drink plenty of fluids at home and stay well hydrated. Please return to the ER with any worsening pain, inability to tolerate oral intake, chest pain, shortness of breath or for any other symptoms concerning for you. Take care! Pending Studies at Discharge: Yes Stand-Alone Forms: My [facility] Medications and DC Order Prescriptions: New phenazopyridine [Pyridium] 100 mg Tablet 100 mg PO TID PRN (Reason: pain) Qty: 10 0RF fluoxetine 10 mg Capsule 10 mg PO QAM Qty: 30 0RF cholecalciferol (vitamin D3) 25 mcg (1,000 unit) Capsule 1,000 unit PO QAM Qty: 30 0RF cyanocobalamin (vitamin B-12) 1,000 mcg capsule 1,000 mcg PO DAILY Qty: 30 0RF ciprofloxacin HCl 500 mg tablet 500 mg PO BID 30 Days Qty: 60 0RF furosemide [Lasix] 20 mg tablet 20 mg PO DAILY Qty: 1 0RF Continued diclofenac sodium 1 % gel 4 g topical QID PRN (Reason: pain) Qty: 200 1RF omeprazole 20 mg tablet,delayed release (DR/EC) 20 mg PO DAILY PRN (Reason: reflux) Qty: 90 0RF Rx Instructions: can take up to 2 tablets(40mg) a day as needed nebivolol 20 mg tablet 40 mg PO QAM Qty: 60 0RF quetiapine 100 mg tablet 150 mg PO DAILY Qty: 60 5RF metformin 500 mg Tablet Extended Release 24 Hr 500 mg PO PM Qty: 30 1RF Discharge Orders: Discharge Order (Routine); Ordered 06/15/22 Ordered By: Nadine Castorena Admission Data Admit Date/Time: 06/12/22 11:01 Attending Provider: Mike Power Admit Provider: Tristin Toscano Primary Care Provider: Gary Leblanc Other Providers: Kishor Amanda ; Malena Olguin Other Interventions: Discharge Summary Assessment (RN) Last Done: 06/15/22 16:34 Supervising Physician Co-Signing Physician Notes Attending Attestation & Discharge Note: Pt seen/examined, chart reviewed, care plan d/w PA Nadine Castorena. I agree w/ the traore components of her discharge documentation. 62yo female with bacteremia 2nd to UTI/pyelonephritis with left-sided ureteral kidney stone. Culprit pathogen - klebsiella oxytoca. [facility] [place] [facility] Urology provided kidney stone assistance - s/p cysto, b/l ureteral stent placement. Rx - IV rocephin, then cipro. Continue cipro minimum 14 days but would recommend she stay on the cipro until she has definitive stone treatment. Discharge exam - gen - NAD, obese neck - mild JVD heart - RRR, s1 s2 lungs - mild end-exp wheeze, mild rales bases; no distress abd - soft NT ND BS+ ext - mild edema, pulses 2+ b/l psych - a/o x 3 Despite cxr no showing pulmonary edema I am concerned she has mild pulmonary edema in the setting of copious IV fluids this admission. Recommend lasix diuresis for a few days post-discharge with f/u labs within a few days to check stability of creatinine. f/u [facility] Urology within 1-2 weeks post-discharge for stone & stent management. Mike Power MD Coding Level of Care Code D/C DAY MANAGEMENT >30 MINS Diagnoses Pyelonephritis N12 Bacteremia R78.81 Sepsis A41.9 Acute kidney injury N17.9 Left ureteral calculus N20.1 Depression F32.9 Hypertension I10 Vitamin D deficiency E55.9 Hypomagnesemia E83.42 B12 deficiency E53.8 Hyperparathyroidism E21.3
[2022-06-15] MEDS ORDERED: FUROSEMIDE 20 MG TAB PO STA (16:21)
--- NOTE | 2022-06-15 16:38 | XRay Report ---
XR chest 1V portable CLINICAL HISTORY: Shortness of breath. Evaluate for pulmonary edema. COMPARISON STUDY: Chest CT October 25, 2015. Chest radiograph June 12, 2022. FINDINGS: Lung volumes are normal. Lungs are clear. There is no pneumothorax or pleural effusion. Car diomegaly is again noted. Mediastinal contours are normal. There is no evidence for pulmonary edema. IMPRESSION: No acute cardiopulmonary findings. No change in appearance of the chest. ACT 112: Negative or not required by law. Electronically signed by: Vicente Mcgee M.D. 06/15/2022 4:37 PM
--- NOTE | 2022-06-24 07:11 | Coding Query ---
CODING QUERY To promote full compliance with coding requirements relating to patient care, provider participation is requested in all cases of shank burnisher uncertainty. Please assist us with the question(s) below: Coding Question(s): The Discharge Summary documents on Addendum, "Discussed with supervising physician, concerns about faint end-expiratory wheezing, possible mild JVD Recs to ambulate in [place] and check oxygen saturation -- patient maintained 94% throughout CXR does not show significant pulmonary edema however given 20mg PO lasix x1. Provided additional dose for tomorrow 06/16 and repeat labs for Monday", and the Supervising Physician area documents, "Despite cxr no showing pulmonary edema I am concerned she has mild pulmonary edema in the setting of copious IV fluids this admission. Recommend lasix diuresis for a few days post-discharge with f/u labs within a few days to check stability of creatinine". Please specify below, in your clinical opinion, regarding concern for mild Pulmonary Edema. ( x ) Possible mild Acute Pulmonary Edema ( ) Possible mild Chronic Pulmonary Edema ( ) Possible mild Acute on Chronic Pulmonary Edema ( ) Possible mild Pulmonary Edema, OTHER: Please Specify ( ) Possible mild Pulmonary Edema, Unspecified Physician's Response(s): Thank you Zenia Zamorano Principal Diagnosis: "that condition established after study, to be chiefly responsible for occasioning the admission of the patient to the hospital for care." Co-Existing Principal Diagnosis: "when two or more diagnoses equally meet the criteria for principal diagnosis as determined by the circumstances of admission, diagnostic work up, and/or therapy provided, and the Alphabetic Index, Tabular List, or another coding guideline does not provide sequencing direction, any one of the diagnoses may be sequenced first." "When the physician has documented what appears to be a current diagnosis in the body of the record, but has not included the diagnosis in the final diagnostic statement, the physician should be asked whether the diagnosis should be added." ([facility] 2 QTR90. p3-4) NEIL
--- NOTE | 2022-06-24 07:18 | Coding Query ---
CODING QUERY To promote full compliance with coding requirements relating to patient care, provider participation is requested in all cases of rate reviewer uncertainty. Please assist us with the question(s) below: Coding Question(s): There is Sepsis documented on the ER, and Urology Consultation, and Progress Notes starting 06/13, with Progress Note 06/15 and Discharge Summary documenting by Nadine Castorena PA-C, "Sepsis: Plan: present on admission with elevated Lactic 3.1-->2.1 on repeat, elevated WBC, fever 39.1C, infection with pyelo 2nd to obstructing stone tx as outline", however, the Supervising Physician documents Bacteremia with no mention of Sepsis, and the Principal Diagnosis Area documents Bacteremia with no mention of Sepsis. It is not clear if there is Sepsis or if Sepsis is ruled-out. Please Specify below, in your clinical opinion. ( ) Sepsis ( ) Bacteremia with No Sepsis ( x ) Other: Please Specify___BACTEREMIA AND SEPSIS (BOTH) Physician's Response(s): Thank you Zenia Zamorano Principal Diagnosis: "that condition established after study, to be chiefly responsible for occasioning the admission of the patient to the hospital for care." Co-Existing Principal Diagnosis: "when two or more diagnoses equally meet the criteria for principal diagnosis as determined by the circumstances of admission, diagnostic work up, and/or therapy provided, and the Alphabetic Index, Tabular List, or another coding guideline does not provide sequencing direction, any one of the diagnoses may be sequenced first." "When the physician has documented what appears to be a current diagnosis in the body of the record, but has not included the diagnosis in the final diagnostic statement, the physician should be asked whether the diagnosis should be added." ([facility] 2 QTR90. p3-4) NEIL
== END 2022-06-15 17:01 | disposition home health service (06) | DRG 853 ==
LOC: ED 06:00 → OR 09:48 → 3N 11:01 → SUATTDRO 11:01